=== PATIENT | female | born 1940 | race Caucasian/White ===

== ENCOUNTER 2018-06-05 20:08 | Inpatient (IN) | payer MEDICAID, MEDICARE, OTHER ==
[2018-06-05 20:13] VITALS: BMI 25.8
[2018-06-05] MEDS ORDERED: Albuterol-Ipratrop 3 mg / 0.5 (3 ml) UD INH STA (20:17)
[2018-06-05 20:57] LABS: BASO # 0.1 K/uL (0.0-0.2); BASO % 0.5 % (0.0-2.0); EOS # 0.1 K/uL (0.0-0.7); EOS % 0.7 % (0.0-4.0); HEMOGLOBIN 13.8 g/dL (11.0-16.0); LYMPH # 1.5 K/uL (1.0-4.3); LYMPH % 9.8 % (20.0-40.0); MEAN CELL VOLUME 89.6 fL (81.0-99.0); MEAN CORPUSCULAR HEMOGLOBIN 29.1 pg (27.0-31.0); MEAN CORPUSCULAR HGB CONC 32.5 g/dL (33.0-37.0); MONO % 6.7 % (0.0-10.0); NEUT # 12.4 K/uL (1.8-7.0); NEUT % 82.3 % (50.0-75.0); PLATELET COUNT 330 K/uL (130-400); RBC 4.74 Mil/uL (3.80-5.20); RED CELL DISTRIBUTION WIDTH 14.1 % (11.5-14.5)
[2018-06-05 21:00] LABS: CALCIUM 8.5 mg/dl (8.6-10.4)
--- NOTE | 2018-06-05 21:06 | C.PDOC ---
History Of Present Illness 78 year old female with PMHx of COPD and CHF is brought to the ED by EMS for evaluation of severe SOB. Patient reports her SOB has been going on for the past 2 weeks. Patient denies fever, chills, CP, palpitations, rash, recent travel, sick contacts. Time Seen by Provider: 06/05/18 20:12 Chief Complaint (Nursing): Shortness Of Breath History Per: Patient, EMS History/Exam Limitations: no limitations Onset/Duration Of Symptoms: Days Current Symptoms Are (Timing): Worse Initiating Event: Upper Respiratory Illness Quality: Tightness Current Respiratory Medications: See Home Med List Recent travel outside of the [place]: No Additional History Per: Patient Past Medical History Reviewed: Historical Data, Nursing Documentation, Vital Signs Vital Signs: Last Vital Signs Temp 98.1 F 06/05/18 20:12 Pulse 126 H 06/05/18 20:12 Resp 30 H 06/05/18 20:32 BP 172/111 H 06/05/18 20:12 Pulse Ox 100 06/05/18 20:32 - Medical History PMH: CAD, Diabetes, HTN, Osteoporosis, Pneumonia Denies: Chronic Kidney Disease Surgical History: CABG (Triple Bypass; CABG 08/2014 [facility] [place], [place]), Coronary Stent - [facility] Procedures LEFT HEART CARDIAC CATH (08/07/14) LT HEART ANGIOCARDIOGRAM (08/07/14) Family History: States: Unknown Family Hx - Social History Hx Tobacco Use: Yes Hx Alcohol Use: No Hx Substance Use: No - Immunization History Hx Tetanus Toxoid Vaccination: No Hx Influenza Vaccination: Yes Hx Pneumococcal Vaccination: Yes Review Of Systems Constitutional: Negative for: Fever, Chills Cardiovascular: Negative for: Chest Pain, Palpitations Respiratory: Positive for: Shortness of Breath. Negative for: Cough Gastrointestinal: Negative for: Nausea, Vomiting, Abdominal Pain Skin: Negative for: Rash Neurological: Negative for: Weakness, Numbness, Headache, Dizziness Physical Exam - Physical Exam Appears: Non-toxic, In Acute Distress (severe distress) Skin: Normal Color, Warm, Dry Head: Atraumatic, Normacephalic Eye(s): bilateral: Normal Inspection Neck: Normal ROM, Supple Chest: Symmetrical Cardiovascular: Rhythm Regular, JVD ((+)) Respiratory: Rales, No Rhonchi, Wheezing Gastrointestinal/Abdominal: Soft, No Tenderness, No Guarding, No Hernia Extremity: Normal ROM, No Tenderness, Pedal Edema (2+ pitting edema bilaterally), Capillary Refill (< 2 seconds) Pulses: Left Dorsalis Pedis: Normal, Right Dorsalis Pedis: Normal Neurological/Psych: Oriented x3, Normal Speech, Normal Cognition Gait: Unable To Assess ED Course And Treatment - Laboratory Results Result Diagrams: 06/05/18 20:41 06/05/18 20:41 Lab Results: Total Bilirubin 0.5 mg/dL (0.2-1.3) 06/05/18 20:41 Total Protein 7.9 g/dL (6.3-8.3) 06/05/18 20:41 Albumin 4.0 g/dL (3.5-5.0) 06/05/18 20:41 Globulin 3.9 gm/dL (2.2-3.9) 06/05/18 20:41 Albumin/Globulin Ratio 1.0 (1.0-2.1) 06/05/18 20:41 Lab Interpretation: Abnormal (ua 52 WBC's, flu swab neg.) ECG: Interpreted By Me ECG Rhythm: Sinus Tachycardia ECG Interpretation: Abnormal Rate From EC O2 Sat by Pulse Oximetry: 100 (BIPAP) Pulse Ox Interpretation: Normal - Radiology CXR Interpretation: Yes: Heart Size, Other (++ CHF) Progress Note: lasix, bipap, rocephin, azithro Reevaluation Time: 22:13 Reassessment Condition: Improved Medical Decision Making Medical Decision Making: Plan: * EKG * Labs * CXR * Duoneb * Lasix 40 mg IVP * Zithromax IV * Rocephin IV * Blood culture * Influenza A B * UA flu neg ? underlying PNA, Leuk 15K, rocephin azithro empirically minor UTI rocephin will cover Disposition Doctor Will See Patient In The: Hospital Counseled Patient/Family Regarding: Studies Performed, Diagnosis - Disposition Disposition: HOSPITALIZED Disposition Time: 22:15 Condition: GOOD - Clinical Impression Clinical Impression: Chr obstructive pulmonary disease w/ acute lower respiratory infxn, Chronic congestive heart failure - Scribe Statement The provider has reviewed the documentation as recorded by the Scribe Huber Aleman All medical record entries made by the Scribe were at my direction and personally dictated by me. I have reviewed the chart and agree that the record accurately reflects my personal performance of the history, physical exam, medical decision making, and the department course for this patient. I have also personally directed, reviewed, and agree with the discharge instructions and disposition.
[2018-06-05 21:15] LABS: TROPONIN I 0.025 ng/mL (0.00-0.120)
[2018-06-05 21:20] LABS: BANDS 3 % (0-2); EOSINOPHIL 1 % (0-4); LYMPHOCYTE 11 % (20-40); MONOCYTE 9 % (0-10); NEUTROPHIL 76 % (50-75); PLATELET ESTIMATE NORMAL (NORMAL); TOTAL CELLS COUNTED 100
[2018-06-05] MEDS ORDERED: cefTRIAXone IV 1 gm in Dextros 50 ML IV ONE (21:36)
[2018-06-05] MEDS ORDERED: Azithromycin 500 MG in Sodium Chloride 0.9% 250 ML IV STA (21:37)
[2018-06-05 21:54] LABS: SQUAMOUS EPITHIAL 10 /hpf (0-5); URINE BACTERIA MANY (<OCC); URINE BILIRUBIN NEGATIVE (NEGATIVE); URINE BLOOD 1+ (NEGATIVE); URINE CLARITY Hazy (Clear); URINE GLUCOSE (UA) 1+ mg/dL (Normal); URINE PROTEIN 3+ mg/dL (NEGATIVE); URINE UROBILINOGEN NORMAL mg/dL (0.2-1.0); WBC CLUMPS FEW /hpf
[2018-06-05 21:55] LABS: URINE COLOR YELLOW (YELLOW); URINE LEUKOCYTE ESTERASE 1+ Leu/uL (Negative)
[2018-06-05] MEDS ORDERED: Azithromycin 500mg/250ML NS 500 MG/250 ML BAG IVPB ONE (22:31)
--- NOTE | 2018-06-05 23:28 | CP.PCM.HP ---
<Peter Paris - Last Filed: 06/06/18 02:31> History of Present Illness - History of Present Illness History of Present Illness: PGY1 history and physical for Medicine Hospitalist This is a 78 year old female with PMH of CHF, CAD (CABG 2014), HTN, IDDM2, osteoporosis, pneumonia who presents with worsening shortness of breath over the past 2 days. She states that the difficulty breathing was the worst today, prompting her to come to the ED. She reports that she has not taken her medications for the past 3 months except for the insulin because of financial difficulties. Pt denies fever, chills, chest pain, palpitations, cough, headache, dizziness, numbness or tingling, abdominal pain, n/v/d, recent travel, recent car rides longer than 4 hours, dysuria, increased urinary frequency. She endorses a fall 5 days ago, with lingering left chest wall discomfort and left shoulder pain. PMD: Michael Cardiology: [facility] (last seen 1 year ago) PMH:PMH of CAD (CABG 2014), CHF, HTN, IDDM2, osteoporosis, pneumonia PSH: CABG 08/2014 Meds: Albutrol pump, Insulin which she takes at no consistent dose, otherwise noncompliant with medications Allx: PCN (rash and difficulty breathing) FHx: denies SHx: Lives alone in an apartment complex for the elderly. Occasional etoh use. quit smoking 2 years ago, 20+ pack year history. Uses a walker to ambulate. Present on Admission - Present on Admission Any Indicators Present on Admission: Yes History of Uncontrolled Diabetes: Yes Review of Systems - Review of Systems All systems: reviewed and no additional remarkable complaints except (see HPI) Past Patient History - Infectious Disease Hx of Infectious Diseases: None - Past Medical History & Family History Past Medical History?: Yes - Past Social History Smoking Status: Never Smoked - CARDIAC Hx Hypertension: Yes - PULMONARY Hx Pneumonia: Yes - NEUROLOGICAL Hx Neurological Disorder: No - HEENT Hx HEENT Problems: Yes Hx Cataracts: Yes (cataract sx 2009) Other/Comment: had cataract surgery-2009 - RENAL Hx Chronic Kidney Disease: No - ENDOCRINE/METABOLIC Hx Endocrine Disorders: Yes Hx Diabetes Mellitus Type 2: Yes - HEMATOLOGICAL/ONCOLOGICAL Hx Blood Disorders: No - INTEGUMENTARY Hx Dermatological Problems: No - MUSCULOSKELETAL/RHEUMATOLOGICAL Hx Osteoporosis: Yes - GASTROINTESTINAL Hx Gastrointestinal Disorders: No - GENITOURINARY/GYNECOLOGICAL Hx Genitourinary Disorders: No - PSYCHIATRIC Hx Substance Use: No - SURGICAL HISTORY Hx Coronary Artery Bypass Graft: Yes (Triple Bypass; CABG 08/2014 [facility] [place]) Hx Coronary Stent: Yes - ANESTHESIA Hx Anesthesia: Yes Hx Anesthesia Reactions: No Hx Malignant Hyperthermia: No Meds Allergies/Adverse Reactions: Allergies Allergy/AdvReac Type Severity Reaction Status Date / Time Penicillins Allergy Verified 06/05/18 20:15 Physical Exam - Constitutional Appears: Non-toxic, No Acute Distress - Head Exam Head Exam: ATRAUMATIC, NORMAL INSPECTION - Eye Exam Eye Exam: EOMI, Normal appearance - ENT Exam ENT Exam: Mucous Membranes Moist - Neck Exam Neck exam: Positive for: Normal Inspection - Respiratory Exam Respiratory Exam: Accessory Muscle Use (tachypnea at approximately 30/min while on BPAP 12/6 40%), Decreased Breath Sounds, Wheezes (at the bases bilaterally). absent: Rales, Rhonchi, Stridor - Cardiovascular Exam Cardiovascular Exam: +S1, +S2 - GI/Abdominal Exam GI & Abdominal Exam: Normal Bowel Sounds, Soft. absent: Firm, Guarding, Rebound, Rigid, Tenderness - Extremities Exam Extremities exam: Positive for: normal capillary refill, normal inspection, pedal edema (1+ pitting edema bilateral lower extremities), tenderness (mild left shoulder tenderness, FROM, good strength), pedal pulses present. Negative for: calf tenderness, full ROM Additional comments: (+) mild tenderness to palpation along the left midline ribs - Back Exam Back exam: NORMAL INSPECTION. absent: CVA tenderness (L), CVA tenderness (R) - Neurological Exam Neurological exam: Alert, Oriented x3 - Psychiatric Exam Psychiatric exam: Normal Affect, Normal Mood - Skin Skin Exam: Dry, Normal Color, Warm Results - Vital Signs Recent Vital Signs: Last Vital Signs Temp 98.1 F 06/05/18 20:12 Pulse 108 H 06/05/18 21:53 Resp 26 H 06/05/18 22:51 BP 135/87 06/05/18 21:53 Pulse Ox 100 06/05/18 22:15 - Labs Result Diagrams: 06/05/18 20:41 06/05/18 20:41 Labs: Laboratory Results - last 24 hr 06/05/18 06/05/18 06/05/18 20:41 20:41 21:42 WBC 15.0 H D RBC 4.74 Hgb 13.8 Hct 42.4 MCV 89.6 MCH 29.1 MCHC 32.5 L RDW 14.1 Plt Count 330 MPV 10.0 Neut % (Auto) 82.3 H Lymph % (Auto) 9.8 L [place] % (Auto) 6.7 Eos % (Auto) 0.7 Baso % (Auto) 0.5 Neut # (Auto) 12.4 H Lymph # (Auto) 1.5 Hamblen # (Auto) 1.0 H Eos # (Auto) 0.1 Baso # (Auto) 0.1 Neutrophils % (Manual) 76 H Band Neutrophils % 3 H Lymphocytes % (Manual) 11 L Monocytes % (Manual) 9 Eosinophils % (Manual) 1 Platelet Estimate Normal Sodium 139 Potassium 4.4 Chloride 109 H Carbon Dioxide 21 L Anion Gap 14 BUN 24 H Creatinine 1.7 H Est GFR ( Amer) 35 Est GFR (Non-Af Amer) 29 Random Glucose 240 H D Calcium 8.5 L Total Bilirubin 0.5 AST 155 H ALT 74 H D Alkaline Phosphatase 151 H Troponin I 0.0250 NT-Pro-B Natriuret Pep 7020 H Total Protein 7.9 Albumin 4.0 Globulin 3.9 Albumin/Globulin Ratio 1.0 Urine Color Urine Clarity Urine pH Ur Specific [place] Urine Protein Urine Glucose (UA) Urine Ketones Urine Blood Urine Nitrate Urine Bilirubin Urine Urobilinogen Ur Leukocyte Esterase Urine WBC (Auto) Urine RBC (Auto) Urine WBC Clumps (Auto) Ur Squamous Epith Cells Urine Bacteria Influenza Typ A,B (EIA) Negative for flu a/b 06/05/18 21:42 WBC RBC Hgb Hct MCV MCH MCHC RDW Plt Count MPV Neut % (Auto) Lymph % (Auto) [place] % (Auto) Eos % (Auto) Baso % (Auto) Neut # (Auto) Lymph # (Auto) Hamb[place] # (Auto) Eos # (Auto) Baso # (Auto) Neutrophils % (Manual) Band Neutrophils % Lymphocytes % (Manual) Monocytes % (Manual) Eosinophils % (Manual) Platelet Estimate Sodium Potassium Chloride Carbon Dioxide Anion Gap BUN Creatinine Est GFR ( Amer) Est GFR (Non-Af Amer) Random Glucose Calcium Total Bilirubin AST ALT Alkaline Phosphatase Troponin I NT-Pro-B Natriuret Pep Total Protein Albumin Globulin Albumin/Globulin Ratio Urine Color Yellow Urine Clarity Hazy Urine pH 5.0 Ur Specific [place] 1.010 Urine Protein 3+ H Urine Glucose (UA) 1+ Urine Ketones Negative Urine Blood 1+ H Urine Nitrate Negative Urine Bilirubin Negative Urine Urobilinogen Normal Ur Leukocyte Esterase 1+ H Urine WBC (Auto) 52 H Urine RBC (Auto) 24 H Urine WBC Clumps (Auto) Few H Ur Squamous Epith Cells 10 H Urine Bacteria Many H Influenza Typ A,B (EIA) Assessment & Plan - Assessment and Plan (Free Text) Assessment: This is a 78 year old female with PMH of CAD (CABG 2014), HTN, IDDM2, osteoporosis, pneumonia who presents with shortness of breath over the past 2 weeks, worse today. Found to be in CHF exacerbation, with possible pneumonia and possible UTI. Plan: CHF exacerbation CXR shows s/p CABG, pulmonary edema, cardiomegaly, possible infiltrate; f/u official reading Pt treated with Lasix 40 mg IVP in the ED, with symptomatic relief. Also placed on BPAP 04/07 40%. BNP is 7020 on admission Will continue Lasix IVP in the morning, but currently pt without JVD, rales and pedal edema is much improved Echocardiogram 2015: shows diastolic and systolic dysfunction Troponin is 0.0250 on admission, EKG shows sinus tachycardia; will trend q6h x2 Will treat with ASA 325 mg PO stat Cardiology, Dr. Huerta, consulted. Recommendations appreciated. F/u echocardiogram Possible infiltrate, left shift, suspected CAP Pt received Zithromax 500 mg IVPB and Rocephin 1g IVPB in the ED Leukocytosis at 15.0 with bandemia of 3 CXR shows pulmonary edema, cannot rule out infiltrate; f/u official reading in am Tylenol prn fever Pt is allergic to PCN, will start Moxifloxacin 400 mg IVPB daily Duonebs q4h SCOUT Creatinine is 1.7 on admission Possible CKD at baseline as 2014 Creatinine is 1.3 Will continue to trend, renal function expected to decline from lasix IV, but will continue to diurese in setting of acute CHF IDDM2 Accucheck ACHS ISS medium ACHS Will reconsider ACEi in the am due to SCOUT Shoulder and rib pain s/p fall on 06/01/18 Pain may have possibly contributed to suspected pneumonia F/u left shoulder x-ray and left rib series Hx of HTN Pt is normotensive at this time May consider hydralazine PT/OT eval GI ppx: protonix 40 mg IVP daily VTE ppx: Heparin 5000 sc q8, SCDs CCD/HHD Case was reviewed and discussed with attending physician, Dr. Joyce Paris PGY1 <Jacob Cook - Last Filed: 06/06/18 06:23> Results - Vital Signs Recent Vital Signs: Last Vital Signs Temp 98.1 F 06/05/18 20:12 Pulse 110 H 06/06/18 04:34 Resp 26 H 06/06/18 04:34 BP 134/77 06/06/18 04:34 Pulse Ox 100 06/06/18 04:34 - Labs Result Diagrams: 06/06/18 04:20 06/06/18 04:20 Labs: Laboratory Results - last 24 hr 06/05/18 06/05/18 06/05/18 20:41 20:41 21:42 WBC 15.0 H D RBC 4.74 Hgb 13.8 Hct 42.4 MCV 89.6 MCH 29.1 MCHC 32.5 L RDW 14.1 Plt Count 330 MPV 10.0 Neut % (Auto) 82.3 H Lymph % (Auto) 9.8 L Hamb[place] % (Auto) 6.7 Eos % (Auto) 0.7 Baso % (Auto) 0.5 Neut # (Auto) 12.4 H Lymph # (Auto) 1.5 Hamb[place] # (Auto) 1.0 H Eos # (Auto) 0.1 Baso # (Auto) 0.1 Neutrophils % (Manual) 76 H Band Neutrophils % 3 H Lymphocytes % (Manual) 11 L Monocytes % (Manual) 9 Eosinophils % (Manual) 1 Platelet Estimate Normal Sodium 139 Potassium 4.4 Chloride 109 H Carbon Dioxide 21 L Anion Gap 14 BUN 24 H Creatinine 1.7 H Est GFR ( Amer) 35 Est GFR (Non-Af Amer) 29 Random Glucose 240 H D Calcium 8.5 L Phosphorus Magnesium Total Bilirubin 0.5 AST 155 H ALT 74 H D Alkaline Phosphatase 151 H Total Creatine Kinase CK-MB (Mass) Troponin I 0.0250 NT-Pro-B Natriuret Pep 7020 H Total Protein 7.9 Albumin 4.0 Globulin 3.9 Albumin/Globulin Ratio 1.0 Triglycerides Cholesterol LDL Cholesterol Direct HDL Cholesterol Urine Color Urine Clarity Urine pH Ur Specific [place] Urine Protein Urine Glucose (UA) Urine Ketones Urine Blood Urine Nitrate Urine Bilirubin Urine Urobilinogen Ur Leukocyte Esterase Urine WBC (Auto) Urine RBC (Auto) Urine WBC Clumps (Auto) Ur Squamous Epith Cells Urine Bacteria Influenza Typ A,B (EIA) Negative for flu a/b 06/05/18 06/06/18 06/06/18 21:42 04:20 04:20 WBC 8.3 RBC 4.20 Hgb 12.1 Hct 37.4 MCV 89.0 MCH 28.9 MCHC 32.5 L RDW 14.5 Plt Count 262 MPV 10.0 Neut % (Auto) 77.7 H Lymph % (Auto) 13.6 L [place] % (Auto) 7.8 Eos % (Auto) 0.4 Baso % (Auto) 0.5 Neut # (Auto) 6.5 Lymph # (Auto) 1.1 [place] # (Auto) 0.6 Eos # (Auto) 0.0 Baso # (Auto) 0.0 Neutrophils % (Manual) Band Neutrophils % Lymphocytes % (Manual) Monocytes % (Manual) Eosinophils % (Manual) Platelet Estimate Sodium 140 Potassium 4.3 Chloride 108 H Carbon Dioxide 23 Anion Gap 13 BUN 26 H Creatinine 1.6 H Est GFR ( Amer) 38 Est GFR (Non-Af Amer) 31 Random Glucose 151 H D Calcium 8.2 L Phosphorus 4.5 Magnesium 1.8 Total Bilirubin 0.6 AST 79 H D ALT 52 D Alkaline Phosphatase 111 Total Creatine Kinase 129 CK-MB (Mass) 2.69 Troponin I 0.0620 NT-Pro-B Natriuret Pep Total Protein 7.1 Albumin 3.3 L Globulin 3.8 Albumin/Globulin Ratio 0.9 L Triglycerides 74 D Cholesterol 171 LDL Cholesterol Direct 114 HDL Cholesterol 39 Urine Color Yellow Urine Clarity Hazy Urine pH 5.0 Ur Specific [place] 1.010 Urine Protein 3+ H Urine Glucose (UA) 1+ Urine Ketones Negative Urine Blood 1+ H Urine Nitrate Negative Urine Bilirubin Negative Urine Urobilinogen Normal Ur Leukocyte Esterase 1+ H Urine WBC (Auto) 52 H Urine RBC (Auto) 24 H Urine WBC Clumps (Auto) Few H Ur Squamous Epith Cells 10 H Urine Bacteria Many H Influenza Typ A,B (EIA) Assessment & Plan - Date & Time Date: 06/06/18 (I have seen and examined the patient. I agree with the findings and plan of care as documented by Dr. Paris. Patient with acute CHF. ROMIx3 with EKG. Lasix. Consult to Cardio. 2D Echo. Monitor renal function closely. Already with acute kidney injury. Will likely worsen due to Lasix. History of diabetes. Accuchecks and NISS. Rib pain secondary to recent fall. Rib series. Monitor for acute changes.) Time: 06:20 Attending/Attestation - Attestation I have personally seen and examined this patient.: Yes I have fully participated in the care of the patient.: Yes I have reviewed all pertinent clinical information: Yes
[2018-06-06] MEDS ORDERED: Glucagon Recombinant 1 mg Inj IM PRN (00:18)
[2018-06-06] MEDS ORDERED: Dextrose 50% SYRINGE Inj (50 ml) IV PRN (00:18)
[2018-06-06] MEDS: Albuterol-Ipratrop 3 mg / 0.5 (3 ml) UD INH SCH ×5 (00:35→16:43)
[2018-06-06] MEDS ORDERED: Albuterol-Ipratrop 3 mg / 0.5 (3 ml) UD ONE ×3 (00:37→08:09)
[2018-06-06 04:22] LABS: BASO % 0.5 % (0.0-2.0); EOS % 0.4 % (0.0-4.0); HEMOGLOBIN 12.1 g/dL (11.0-16.0); LYMPH # 1.1 K/uL (1.0-4.3); LYMPH % 13.6 % (20.0-40.0); MEAN CORPUSCULAR HEMOGLOBIN 28.9 pg (27.0-31.0); MEAN CORPUSCULAR HGB CONC 32.5 g/dL (33.0-37.0); MONO # 0.6 K/uL (0.0-0.8); MONO % 7.8 % (0.0-10.0); NEUT # 6.5 K/uL (1.8-7.0); NEUT % 77.7 % (50.0-75.0); RBC 4.2 Mil/uL (3.80-5.20); RED CELL DISTRIBUTION WIDTH 14.5 % (11.5-14.5); WHITE BLOOD COUNT 8.3 K/uL (4.8-10.8)
[2018-06-06 04:46] LABS: CK-MB 2.69 ng/mL (0.0-3.38)
[2018-06-06 05:04] LABS: ALB/GLOB RATIO 0.9 (1.0-2.1); ALBUMIN 3.3 g/dL (3.5-5.0); CALCIUM 8.2 mg/dl (8.6-10.4); TROPONIN I 0.062 ng/mL (0.00-0.120)
[2018-06-06] MEDS: Aztreonam 1 GM in Sodium Chloride 0.9% 100 ML IVPB SCH ×3 (06:27→21:53)
--- NOTE | 2018-06-06 07:44 | CP.PCM.PN ---
<Kathy Rivera - Last Filed: 06/06/18 14:38> Subjective - Date & Time of Evaluation Date of Evaluation: 06/06/18 Time of Evaluation: 09:15 - Subjective Subjective: Patient examined at bedside. Pt in respiratory distress, tachypneic and tachycardic. Per nursing, patient has respiratory distress with any physical exertion, even moving to sit at foot of bed. Pt only able to speak a few words at a time 2/2 tachypnea. She reports she is feeling better than on presentation to the ED, decreased shortness of breath. She confirms she has not been taking medications 2/2 financial constraints. Pt experienced progressive decline in respiratory function requiring ED treatment. Currently denies chest pain, cough, nausea. Objective - Vital Signs/Intake and Output Vital Signs (last 24 hours): Temp Pulse Resp BP Pulse Ox 98.1 F 98 H 16 125/74 100 06/05/18 20:12 06/06/18 06:53 06/06/18 06:53 06/06/18 06:53 06/06/18 06:53 Intake and Output: 06/06/18 06/06/18 06:59 18:59 Output Total 750 Balance -750 - Medications Medications: Current Medications Acetaminophen (Tylenol 325mg Tab) 650 mg PO Q6 PRN PRN Reason: Fever >100.4 F Acetaminophen (Tylenol 325mg Tab) 650 mg PO Q6 PRN PRN Reason: Pain, moderate (4-7) Last Admin: 06/06/18 00:55 Dose: 650 mg Albuterol/Ipratropium (Duoneb 3 Mg/0.5 Mg (3 Ml) Ud) 3 ml INH RQ4 PATRICIA Last Admin: 06/06/18 04:40 Dose: 3 ml Dextrose (Glutose 15) 0 gm PO ONCE PRN; Protocol PRN Reason: Hypoglycemia Protocol Dextrose (Dextrose 50% Inj) 0 ml IV STAT PRN; Protocol PRN Reason: Hypoglycemia Protocol Glucagon (Glucagen Diagnostic Kit) 0 mg IM STAT PRN; Protocol PRN Reason: Hypoglycemia Protocol Heparin Sodium (Porcine) (Heparin) 5,000 units SC Q8 PATRICIA Last Admin: 06/06/18 06:27 Dose: 5,000 units Dextrose (Dextrose 5% In Water 1000 Ml) 1,000 mls @ 0 mls/hr IV .Q0M PRN; Protocol PRN Reason: Hypoglycemia Protocol Aztreonam 1 gm/ Sodium (Chloride) 100 mls @ 100 mls/hr IVPB Q8 PATRICIA; Protocol Last Admin: 06/06/18 06:27 Dose: 100 mls/hr Doxycycline Hyclate 100 mg/ (Sodium Chloride) 100 mls @ 100 mls/hr IVPB Q12 PATRICIA; Protocol Insulin Human Regular (Novolin R) 0 unit SC ACHS PATRICIA; Protocol - Labs Labs: 06/06/18 04:20 06/06/18 04:20 - Constitutional Appears: Non-toxic, In Acute Distress - Head Exam Head Exam: ATRAUMATIC, NORMAL INSPECTION, NORMOCEPHALIC - Eye Exam Eye Exam: EOMI, Normal appearance - ENT Exam ENT Exam: Mucous Membranes Moist, Normal Exam - Respiratory Exam Respiratory Exam: Accessory Muscle Use, Rhonchi, Wheezes, Respiratory Distress. absent: NORMAL BREATHING PATTERN (tachypneic) - Cardiovascular Exam Cardiovascular Exam: Tachycardia, REGULAR RHYTHM - GI/Abdominal Exam GI & Abdominal Exam: Soft, Normal Bowel Sounds. absent: Tenderness - Extremities Exam Extremities Exam: Normal Inspection. absent: Calf Tenderness, Pedal Edema - Neurological Exam Neurological Exam: Alert, Awake, Oriented x3 - Psychiatric Exam Psychiatric exam: Normal Affect, Normal Mood - Skin Skin Exam: Dry, Intact, Normal Color, Warm. absent: Cyanosis Assessment and Plan - Assessment and Plan (Free Text) Assessment: 78 year old female with PMHx of CAD (CABG 2014), HTN, IDDM2, osteoporosis, presenting for evaluation of SOB, and admitted for treatment of an acute CHF exacerbation Plan: CHF exacerbation, acute on chronic Echo 2015: Grade IV restrictive diastolic dysfunction and systolic dysfunction F/U repeat echo: Troponins negative x3, BNP is 7020 on admission Lasix 40mg IVP BID Lopressor 25mg PO BID Hold CARMEL/ARb pending improved renal function Consider adding ASA 81mg, statin Cardiology, Dr. Huerta, consulted. Recommendations appreciated. Suspected CAP CXR: Diffuse increased interstitial airspace opacities suggestive for edema/infiltrate, superimposed confluent consolidative changes in left mid to lower lung, and right lung apex and base F/U chest CT for further evaluation: No leukocytosis/fevers Tylenol prn fever Aztreonam and Doxy Duonebs q4h Suspected UTI UA contaminated F/U urine culture SCOUT Creatinine is 1.7 on admission, downtrending to 1.6 today Consider adding CARMEL pending Cr DM2 Accucheck ACHS ISS medium ACHS Hypoglycemia protocol Hx of HTN Continue to monitor, add CARMEL if Cr stable, otherwise maybe Hydralazine PPX PT/OT eval GI ppx: protonix 40 mg IVP daily VTE ppx: Heparin 5000 sc q8, SCDs CCD/HHD Discussed w/ Dr. Alonzo -Kathy Rivera, PGY-1 <Roscoe Alonzo H - Last Filed: 06/06/18 15:58> Objective - Vital Signs/Intake and Output Vital Signs (last 24 hours): Temp Pulse Resp BP Pulse Ox 97.5 F L 102 H 18 151/94 H 97 06/06/18 15:00 06/06/18 15:00 06/06/18 15:00 06/06/18 15:00 06/06/18 15:00 Intake and Output: 06/06/18 06/06/18 06:59 18:59 Output Total 750 Balance -750 - Medications Medications: Current Medications Acetaminophen (Tylenol 325mg Tab) 650 mg PO Q6 PRN PRN Reason: Fever >100.4 F Acetaminophen (Tylenol 325mg Tab) 650 mg PO Q6 PRN PRN Reason: Pain, moderate (4-7) Last Admin: 06/06/18 00:55 Dose: 650 mg Albuterol/Ipratropium (Duoneb 3 Mg/0.5 Mg (3 Ml) Ud) 3 ml INH RQ4 [facility] Last Admin: 06/06/18 11:25 Dose: 3 ml Dextrose (Glutose 15) 0 gm PO ONCE PRN; Protocol PRN Reason: Hypoglycemia Protocol Dextrose (Dextrose 50% Inj) 0 ml IV STAT PRN; Protocol PRN Reason: Hypoglycemia Protocol Furosemide (Lasix) 40 mg IVP BID [facility] Last Admin: 06/06/18 10:52 Dose: 40 mg Glucagon (Glucagen Diagnostic Kit) 0 mg IM STAT PRN; Protocol PRN Reason: Hypoglycemia Protocol Heparin Sodium (Porcine) (Heparin) 5,000 units SC Q8 [facility] Last Admin: 06/06/18 14:33 Dose: 5,000 units Dextrose (Dextrose 5% In Water 1000 Ml) 1,000 mls @ 0 mls/hr IV .Q0M PRN; Protocol PRN Reason: Hypoglycemia Protocol Aztreonam 1 gm/ Sodium (Chloride) 100 mls @ 100 mls/hr IVPB Q8 PATRICIA; Protocol Last Admin: 06/06/18 13:16 Dose: 100 mls/hr Doxycycline Hyclate 100 mg/ (Sodium Chloride) 100 mls @ 100 mls/hr IVPB Q12H PATRICIA; Protocol Last Admin: 06/06/18 13:12 Dose: 100 mls/hr Insulin Human Regular (Novolin R) 0 unit SC ACHS PATRICIA; Protocol Last Admin: 06/06/18 11:38 Dose: Not Given Metoprolol Tartrate (Lopressor) 25 mg PO BID PATRICIA Last Admin: 06/06/18 10:53 Dose: 25 mg Pneumococcal Polyvalent Vaccine (Pneumovax 23 Vaccine) 0.5 ml IM .ONCE ONE Stop: 06/08/18 14:01 - Labs Labs: 06/06/18 04:20 06/06/18 04:20 Attending/Attestation - Attestation I have personally seen and examined this patient.: Yes I have fully participated in the care of the patient.: Yes I have reviewed all pertinent clinical information, including history, physical exam and plan: Yes Notes (Text): 06/06/18 15:52 Medical attending: I will have to reutrn and see the patient later today. I tried to see in the morning but she was at test and this afternoon when I came back with resident she was at CT Nevertheless I reviewed the above note by the resident and agree with the above. The CXRAY shows she has at least a moderate R > L pleural effusion and considering her shortness of breath will need lasix and 2 D Echo. An order for CT without contrast of the chest was also ordered this morning as she may need a thoracentesis. Cardiology added BB, and she will need a PT evaluation as well. From what I understand the patient has not taken medication for quite sometime due to financial difficulties and so at some point when she goes we should try to see what we can do to send her with. thank you Roscoe Alonzo
[2018-06-06] MEDS ORDERED: (Novolin R) Insulin Human Regular 100 units/ml vial ONE (08:04)
[2018-06-06] MEDS: (Novolin R) Insulin Human Regular 100 units/ml vial SC SCH ×4 (08:08→21:53)
--- NOTE | 2018-06-06 09:23 | RAD ---
Chest x-ray single frontal view HISTORY: Shortness of breath. COMPARISON: 10/05/2014 Findings: Hyperinflation suggestive for COPD and or emphysematous changes. Diffuse reticular nodular opacities seen throughout both lungs. Prominent increased opacification in both lungs which may represent diffuse edema versus infiltrate. Confluent consolidative opacities seen within the left mid to lower lung zone as well as at the right lung apex and right lung base. Small bilateral pleural effusions. Cardiomegaly. Bilateral calcified hilar and mediastinal lymph nodes. Status post median sternotomy and CABG. Cardiomegaly. Degenerative changes in the spine and shoulders. Impression: Hyperinflation suggestive for COPD and or emphysematous changes. Diffuse reticular nodular opacities seen throughout both lungs. Prominent increased opacification in both lungs which may represent diffuse edema versus infiltrate. Confluent consolidative opacities seen within the left mid to lower lung zone as well as at the right lung apex and right lung base. Small bilateral pleural effusions. Cardiomegaly. Bilateral calcified hilar and mediastinal lymph nodes. Status post median sternotomy and CABG. Cardiomegaly.
--- NOTE | 2018-06-06 09:37 | RAD ---
Chest x-ray single frontal view HISTORY: Follow-up. COMPARISON: 06/05/2018 Findings: Diffuse increased interstitial airspace opacities suggestive for edema and or infiltrate. Superimposed confluent consolidative changes in the left mid to lower lung zone as well as at the right lung apex and base. Increased now moderate right and small left pleural effusion. Status post median sternotomy. Cardiomegaly. Calcified bilateral hilar lymph nodes. Biapical pleural thickening with upper changes. Degenerative changes in the spine and shoulders. Impression: Diffuse increased interstitial airspace opacities suggestive for edema and or infiltrate. Superimposed confluent consolidative changes in the left mid to lower lung zone as well as at the right lung apex and base. Increased now moderate right and small left pleural effusion. Status post median sternotomy. Cardiomegaly. Calcified bilateral hilar lymph nodes. Biapical pleural thickening with upper lobe granulomatous changes.
[2018-06-06] MEDS ORDERED: Moxifloxacin IV 400mg/250ml NS 400 MG/250 ML BAG IVPB SCH (10:00)
[2018-06-06] MEDS ORDERED: Azithromycin 500 MG in Sodium Chloride 0.9% 250 ML IVPB SCH (10:00)
[2018-06-06 11:56] LABS: CK-MB 3.62 ng/mL (0.0-3.38); TROPONIN I 0.061 ng/mL (0.00-0.120)
--- NOTE | 2018-06-06 15:03 | RAD ---
Date of service: 06/06/2018 PROCEDURE: Radiographs of the Left Shoulder HISTORY: s/p fall COMPARISON: No prior. FINDINGS: BONES: No fracture. Small globular calcification adjacent to the greater tuberosity consistent with calcific tendinitis. JOINTS: Normal. Glenohumeral and acromioclavicular joints preserved. No osteoarthritis. SOFT TISSUES: Normal. OTHER FINDINGS: None. IMPRESSION: Calcific tendinitis. No acute fracture.
--- NOTE | 2018-06-06 15:03 | RAD ---
Date of service: 06/06/2018 PROCEDURE: Radiographs of the Chest and Left Ribs. HISTORY: s/p fall COMPARISON: Not available TECHNIQUE: Frontal radiograph of the chest and multiple oblique radiographs of the left ribs were obtained. FINDINGS: LEFT RIBS: No fracture or focal lesion visualized. LUNGS: Clear. PLEURA: No pneumothorax or pleural fluid. CARDIOVASCULAR: Normal cardiac size. No pulmonary vascular congestion. No aortic atherosclerotic calcification present OTHER FINDINGS: None. IMPRESSION: Unremarkable radiographs of the chest and left ribs. No left rib fracture.
--- NOTE | 2018-06-06 17:49 | CT ---
Date of service: 06/06/2018 PROCEDURE: CT Chest without contrast HISTORY: eval for pleural effusions COMPARISON: Comparison is made with the previous study dated 08/07/2014 TECHNIQUE: Contiguous axial images were obtained through the chest without intravenous contrast enhancement. Sagittal and coronal reconstructions were performed. Radiation dose: Total exam DLP = 783.84 mGy-cm. This CT exam was performed using one or more of the following dose reduction techniques: Automated exposure control, adjustment of the mA and/or kV according to patient size, and/or use of iterative reconstruction technique. FINDINGS: LUNGS: Moderate to mildly severe upper lobe predominant emphysema is again noted. There Is round consolidation at the medial aspect of the right lung upper lobe may represent lung mass versus localized pleural effusion. Diffuse ground-glass opacity and reticular opacities in both upper lobes noted. There is partially calcified nodule at the right lung upper lobe measures 1.5 centimeter. MEDIASTINUM: The thoracic aorta is ectatic and tortuous. The heart is enlarged. Main pulmonary artery is mildly enlarged. Mediastinal lymphadenopathy are again noted some of which are calcified. Bilateral hilar calcified lymph nodes are again noted. No aortic atherosclerotic calcification. PLEURA: There is moderate to large right pleural effusion. There is a small left pleural effusion. BONES: No fracture. No destructive lesion. UPPER ABDOMEN: Grossly unremarkable. OTHER FINDINGS: None. IMPRESSION: Markedly limited study degraded by motion artifact. The evaluation is also limited without IV contrast administration. Round consolidation versus localized pleural effusion noted at the medial aspect of the right upper chest. Reticular opacities and ground-glass opacities are noted in the upper lobes larger on the left. Moderate to large right pleural effusion. Calcified granuloma and calcified mediastinal and hilar lymphadenopathy are again noted. Findings likely due to prior granulomatosis disease or sarcoidosis. Moderate cardiomegaly.
--- NOTE | 2018-06-06 18:38 | CP.PCM.CON ---
<Bronson Xavierssyca IlsaTristan - Last Filed: 06/06/18 18:34> History of Present Illness - History of Present Illness History of Present Illness: Cardiology Consult Note for Dr. Huerta: 78 year old female with PMH of CHF, CAD (CABG 2014), HTN, IDDM2 and osteoporosis who presented to the ER with worsening shortness of breath over the past 2 days. During examination patient was very short of breath as she just moved from bed to the bathroom. Patient had to stop after every word to catch her breath (patient on 3L of Oxygen). Per nurse patient has not used her BiPAP machine for 3 days. PMD: Dr. Rodriguez Cardiology: Dr. Huerta (last seen 1 year ago) Past Medical History: CAD (CABG 2014), CHF, HTN, IDDM2, osteoporosis, pneumonia Past Surgical History: CABG 08/2014; Cardiac Cath 2014 Medications: Patient states she has not been taking many of her medications for awhile due to financial reasons Allergies: PCN (rash and difficulty breathing) Social History: Quit smoking 2 years ago, 20+ pack year history. Uses a walker to ambulate. Review of Systems - Review of Systems Systems not reviewed;Unavailable: Respiratory Distress Past Patient History - Infectious Disease Hx of Infectious Diseases: None - Past Medical History & Family History Past Medical History?: Yes - Past Social History Smoking Status: Light Smoker < 10 Cigarettes Daily - CARDIAC Hx Cardiac Disorders: Yes Hx Hypertension: Yes - PULMONARY Hx Respiratory Disorders: Yes Hx Pneumonia: Yes - NEUROLOGICAL Hx Neurological Disorder: No - HEENT Hx HEENT Problems: Yes Hx Cataracts: Yes (cataract sx 2009) Other/Comment: had cataract surgery-2009 - RENAL Hx Chronic Kidney Disease: No - ENDOCRINE/METABOLIC Hx Diabetes Mellitus Type 2: Yes - HEMATOLOGICAL/ONCOLOGICAL Hx Blood Disorders: No - INTEGUMENTARY Hx Dermatological Problems: No - MUSCULOSKELETAL/RHEUMATOLOGICAL Hx Musculoskeletal Disorders: Yes Hx Falls: No Hx Osteoporosis: Yes - GASTROINTESTINAL Hx Gastrointestinal Disorders: No - GENITOURINARY/GYNECOLOGICAL Hx Genitourinary Disorders: No - PSYCHIATRIC Hx Psychophysiologic Disorder: No Hx Substance Use: No - SURGICAL HISTORY Hx Surgeries: Yes Hx Coronary Artery Bypass Graft: Yes [place]Triple Bypass[place] [facility] [place] Hx Coronary Stent: Yes - ANESTHESIA Hx Anesthesia: Yes Hx Anesthesia Reactions: No Hx Malignant Hyperthermia: No Meds Allergies/Adverse Reactions: Allergies Allergy/AdvReac Type Severity Reaction Status Date / Time Penicillins Allergy Verified 06/05/18 20:15 - Medications Medications: Current Medications Acetaminophen (Tylenol 325mg Tab) 650 mg PO Q6 PRN PRN Reason: Fever >100.4 F Acetaminophen (Tylenol 325mg Tab) 650 mg PO Q6 PRN PRN Reason: Pain, moderate (4-7) Last Admin: 06/06/18 00:55 Dose: 650 mg Albuterol/Ipratropium (Duoneb 3 Mg/0.5 Mg (3 Ml) Ud) 3 ml INH RQ4 PATRICIA Last Admin: 06/06/18 16:43 Dose: 3 ml Dextrose (Glutose 15) 0 gm PO ONCE PRN; Protocol PRN Reason: Hypoglycemia Protocol Dextrose (Dextrose 50% Inj) 0 ml IV STAT PRN; Protocol PRN Reason: Hypoglycemia Protocol Furosemide (Lasix) 40 mg IVP BID PATRICIA Last Admin: 06/06/18 17:19 Dose: 40 mg Glucagon (Glucagen Diagnostic Kit) 0 mg IM STAT PRN; Protocol PRN Reason: Hypoglycemia Protocol Heparin Sodium (Porcine) (Heparin) 5,000 units SC Q8 PATRICIA Last Admin: 06/06/18 14:33 Dose: 5,000 units Dextrose (Dextrose 5% In Water 1000 Ml) 1,000 mls @ 0 mls/hr IV .Q0M PRN; Protocol PRN Reason: Hypoglycemia Protocol Aztreonam 1 gm/ Sodium (Chloride) 100 mls @ 100 mls/hr IVPB Q8 PATRICIA; Protocol Last Admin: 06/06/18 13:16 Dose: 100 mls/hr Doxycycline Hyclate 100 mg/ (Sodium Chloride) 100 mls @ 100 mls/hr IVPB Q12H PATRICIA; Protocol Last Admin: 06/06/18 13:12 Dose: 100 mls/hr Insulin Human Regular (Novolin R) 0 unit SC ACHS PATRICIA; Protocol Last Admin: 06/06/18 17:19 Dose: 2 units Metoprolol Tartrate (Lopressor) 25 mg PO BID PATRICIA Last Admin: 06/06/18 17:19 Dose: 25 mg Pneumococcal Polyvalent Vaccine (Pneumovax 23 Vaccine) 0.5 ml IM .ONCE ONE Stop: 06/08/18 14:01 Physical Exam - Constitutional Appears: In Acute Distress, Chronically Ill - Head Exam Head Exam: ATRAUMATIC, NORMAL INSPECTION - Eye Exam Eye Exam: EOMI, Normal appearance - ENT Exam ENT Exam: Mucous Membranes Moist - Respiratory Exam Respiratory Exam: Rhonchi, Wheezes - Cardiovascular Exam Cardiovascular Exam: Tachycardia - GI/Abdominal Exam GI & Abdominal Exam: Normal Bowel Sounds, Soft. absent: Tenderness - Extremities Exam Extremities exam: Positive for: normal inspection - Neurological Exam Neurological exam: Alert, Oriented x3 - Psychiatric Exam Psychiatric exam: Anxious - Skin Skin Exam: Normal Color Results - Vital Signs Recent Vital Signs: Last Vital Signs Temp 97.5 F L 06/06/18 15:00 Pulse 102 H 06/06/18 15:00 Resp 18 06/06/18 15:00 BP 151/94 H 06/06/18 17:19 Pulse Ox 97 06/06/18 15:00 - Labs Result Diagrams: 06/06/18 04:20 06/06/18 04:20 Labs: Laboratory Results - last 24 hr 06/05/18 06/05/18 06/05/18 20:41 20:41 21:42 WBC 15.0 H D RBC 4.74 Hgb 13.8 Hct 42.4 MCV 89.6 MCH 29.1 MCHC 32.5 L RDW 14.1 Plt Count 330 MPV 10.0 Neut % (Auto) 82.3 H Lymph % (Auto) 9.8 L [place] % (Auto) 6.7 Eos % (Auto) 0.7 Baso % (Auto) 0.5 Neut # (Auto) 12.4 H Lymph # (Auto) 1.5 [place] # (Auto) 1.0 H Eos # (Auto) 0.1 Baso # (Auto) 0.1 Neutrophils % (Manual) 76 H Band Neutrophils % 3 H Lymphocytes % (Manual) 11 L Monocytes % (Manual) 9 Eosinophils % (Manual) 1 Platelet Estimate Normal Sodium 139 Potassium 4.4 Chloride 109 H Carbon Dioxide 21 L Anion Gap 14 BUN 24 H Creatinine 1.7 H Est GFR ( Amer) 35 Est GFR (Non-Af Amer) 29 POC Glucose (mg/dL) Random Glucose 240 H D Hemoglobin A1c Calcium 8.5 L Phosphorus Magnesium Total Bilirubin 0.5 AST 155 H ALT 74 H D Alkaline Phosphatase 151 H Total Creatine Kinase CK-MB (Mass) Troponin I 0.0250 NT-Pro-B Natriuret Pep 7020 H Total Protein 7.9 Albumin 4.0 Globulin 3.9 Albumin/Globulin Ratio 1.0 Triglycerides Cholesterol LDL Cholesterol Direct HDL Cholesterol Urine Color Urine Clarity Urine pH Ur Specific [place] Urine Protein Urine Glucose (UA) Urine Ketones Urine Blood Urine Nitrate Urine Bilirubin Urine Urobilinogen Ur Leukocyte Esterase Urine WBC (Auto) Urine RBC (Auto) Urine WBC Clumps (Auto) Ur Squamous Epith Cells Urine Bacteria Influenza Typ A,B (EIA) Negative for flu a/b 06/05/18 06/06/18 06/06/18 21:42 04:20 04:20 WBC 8.3 RBC 4.20 Hgb 12.1 Hct 37.4 MCV 89.0 MCH 28.9 MCHC 32.5 L RDW 14.5 Plt Count 262 MPV 10.0 Neut % (Auto) 77.7 H Lymph % (Auto) 13.6 L [place] % (Auto) 7.8 Eos % (Auto) 0.4 Baso % (Auto) 0.5 Neut # (Auto) 6.5 Lymph # (Auto) 1.1 [place] # (Auto) 0.6 Eos # (Auto) 0.0 Baso # (Auto) 0.0 Neutrophils % (Manual) Band Neutrophils % Lymphocytes % (Manual) Monocytes % (Manual) Eosinophils % (Manual) Platelet Estimate Sodium 140 Potassium 4.3 Chloride 108 H Carbon Dioxide 23 Anion Gap 13 BUN 26 H Creatinine 1.6 H Est GFR ( Amer) 38 Est GFR (Non-Af Amer) 31 POC Glucose (mg/dL) Random Glucose 151 H D Hemoglobin A1c Calcium 8.2 L Phosphorus 4.5 Magnesium 1.8 Total Bilirubin 0.6 AST 79 H D ALT 52 D Alkaline Phosphatase 111 Total Creatine Kinase 129 CK-MB (Mass) 2.69 Troponin I 0.0620 NT-Pro-B Natriuret Pep Total Protein 7.1 Albumin 3.3 L Globulin 3.8 Albumin/Globulin Ratio 0.9 L Triglycerides 74 D Cholesterol 171 LDL Cholesterol Direct 114 HDL Cholesterol 39 Urine Color Yellow Urine Clarity Hazy Urine pH 5.0 Ur Specific [place] 1.010 Urine Protein 3+ H Urine Glucose (UA) 1+ Urine Ketones Negative Urine Blood 1+ H Urine Nitrate Negative Urine Bilirubin Negative Urine Urobilinogen Normal Ur Leukocyte Esterase 1+ H Urine WBC (Auto) 52 H Urine RBC (Auto) 24 H Urine WBC Clumps (Auto) Few H Ur Squamous Epith Cells 10 H Urine Bacteria Many H Influenza Typ A,B (EIA) 06/06/18 06/06/18 06/06/18 04:20 07:46 11:02 WBC RBC Hgb Hct MCV MCH MCHC RDW Plt Count MPV Neut % (Auto) Lymph % (Auto) [place] % (Auto) Eos % (Auto) Baso % (Auto) Neut # (Auto) Lymph # (Auto) [place] # (Auto) Eos # (Auto) Baso # (Auto) Neutrophils % (Manual) Band Neutrophils % Lymphocytes % (Manual) Monocytes % (Manual) Eosinophils % (Manual) Platelet Estimate Sodium Potassium Chloride Carbon Dioxide Anion Gap BUN Creatinine Est GFR ( Amer) Est GFR (Non-Af Amer) POC Glucose (mg/dL) 210 H Random Glucose Hemoglobin A1c 9.3 H Calcium Phosphorus Magnesium Total Bilirubin AST ALT Alkaline Phosphatase Total Creatine Kinase 150 H CK-MB (Mass) 3.62 H Troponin I 0.0610 NT-Pro-B Natriuret Pep Total Protein Albumin Globulin Albumin/Globulin Ratio Triglycerides Cholesterol LDL Cholesterol Direct HDL Cholesterol Urine Color Urine Clarity Urine pH Ur Specific [place] Urine Protein Urine Glucose (UA) Urine Ketones Urine Blood Urine Nitrate Urine Bilirubin Urine Urobilinogen Ur Leukocyte Esterase Urine WBC (Auto) Urine RBC (Auto) Urine WBC Clumps (Auto) Ur Squamous Epith Cells Urine Bacteria Influenza Typ A,B (EIA) 06/06/18 06/06/18 11:23 16:06 WBC RBC Hgb Hct MCV MCH MCHC RDW Plt Count MPV Neut % (Auto) Lymph % (Auto) [place] % (Auto) Eos % (Auto) Baso % (Auto) Neut # (Auto) Lymph # (Auto) [place] # (Auto) Eos # (Auto) Baso # (Auto) Neutrophils % (Manual) Band Neutrophils % Lymphocytes % (Manual) Monocytes % (Manual) Eosinophils % (Manual) Platelet Estimate Sodium Potassium Chloride Carbon Dioxide Anion Gap BUN Creatinine Est GFR ( Amer) Est GFR (Non-Af Amer) POC Glucose (mg/dL) 134 H 151 H Random Glucose Hemoglobin A1c Calcium Phosphorus Magnesium Total Bilirubin AST ALT Alkaline Phosphatase Total Creatine Kinase CK-MB (Mass) Troponin I NT-Pro-B Natriuret Pep Total Protein Albumin Globulin Albumin/Globulin Ratio Triglycerides Cholesterol LDL Cholesterol Direct HDL Cholesterol Urine Color Urine Clarity Urine pH Ur Specific [place] Urine Protein Urine Glucose (UA) Urine Ketones Urine Blood Urine Nitrate Urine Bilirubin Urine Urobilinogen Ur Leukocyte Esterase Urine WBC (Auto) Urine RBC (Auto) Urine WBC Clumps (Auto) Ur Squamous Epith Cells Urine Bacteria Influenza Typ A,B (EIA) Assessment & Plan - Assessment and Plan (Free Text) Assessment: CHF exacerbation, acute on chronic - Patient is s/p CABAG 2015 - ECHO 2015: Grade IV restrictive diastolic dysfunction and systolic dysfunction - Troponins negative x3, BNP is 7020 on admission - ECHO (06/06/18): Reviewed with Dr. Huerta- Systolic CHF; Pleural Effusion; EF 20% - Lipid Panel: Total Cholesterol 171; LDL 114; HDL 39; Triglycerides 74 - Medications: * Lasix 40mg IVP BID * Lopressor 25mg PO BID * Hold CARMEL/ARb pending improved renal function * Aspirin 81mg daily * Consider statin Pleural Effusion - possibly secondary to CHF exacerbation - Chest CT: Round consolidation versus localized pleural effusion noted at the medial aspect of the right upper chest. Reticular opacities and ground-glass opacities are noted in the upper lobes larger on the left. Moderate to large right pleural effusion. Calcified granuloma and calcified mediastinal and hilar lymphadenopathy are again noted. Findings likely due to prior granulomatosis disease or sarcoidosis. Moderate cardiomegaly. - Pulm Consult: Dr. High --> help appreciated - Patient placed on BiPAP Case discussed with Dr. Bradley Xavier PGY-2 <Jamaal Huerta - Last Filed: 06/06/18 23:36> Meds - Medications Medications: Current Medications Acetaminophen (Tylenol 325mg Tab) 650 mg PO Q6 PRN PRN Reason: Fever >100.4 F Acetaminophen (Tylenol 325mg Tab) 650 mg PO Q6 PRN PRN Reason: Pain, moderate (4-7) Last Admin: 06/06/18 00:55 Dose: 650 mg Albuterol/Ipratropium (Duoneb 3 Mg/0.5 Mg (3 Ml) Ud) 3 ml INH RQ4 PATRICIA Last Admin: 06/06/18 16:43 Dose: 3 ml Aspirin (Ecotrin) 81 mg PO DAILY [facility] Dextrose (Glutose 15) 0 gm PO ONCE PRN; Protocol PRN Reason: Hypoglycemia Protocol Dextrose (Dextrose 50% Inj) 0 ml IV STAT PRN; Protocol PRN Reason: Hypoglycemia Protocol Furosemide (Lasix) 40 mg IVP BID [facility] Last Admin: 06/06/18 17:19 Dose: 40 mg Glucagon (Glucagen Diagnostic Kit) 0 mg IM STAT PRN; Protocol PRN Reason: Hypoglycemia Protocol Heparin Sodium (Porcine) (Heparin) 5,000 units SC Q8 [facility] Last Admin: 06/06/18 21:53 Dose: 5,000 units Dextrose (Dextrose 5% In Water 1000 Ml) 1,000 mls @ 0 mls/hr IV .Q0M PRN; Protocol PRN Reason: Hypoglycemia Protocol Aztreonam 1 gm/ Sodium (Chloride) 100 mls @ 100 mls/hr IVPB Q8 PATRICIA; Protocol Last Admin: 06/06/18 21:53 Dose: 100 mls/hr Doxycycline Hyclate 100 mg/ (Sodium Chloride) 100 mls @ 100 mls/hr IVPB Q12H [facility]; Protocol Last Admin: 06/06/18 13:12 Dose: 100 mls/hr Insulin Human Regular (Novolin R) 0 unit SC ACHS [facility]; Protocol Last Admin: 06/06/18 21:53 Dose: Not Given Metoprolol Tartrate (Lopressor) 25 mg PO BID [facility] Last Admin: 06/06/18 17:19 Dose: 25 mg Pneumococcal Polyvalent Vaccine (Pneumovax 23 Vaccine) 0.5 ml IM .ONCE ONE Stop: 06/08/18 14:01 Results - Vital Signs Recent Vital Signs: Last Vital Signs Temp 97.5 F L 06/06/18 15:00 Pulse 102 H 06/06/18 15:00 Resp 18 06/06/18 15:00 BP 151/94 H 06/06/18 17:19 Pulse Ox 97 06/06/18 15:00 - Labs Result Diagrams: 06/06/18 04:20 06/06/18 04:20 Labs: Laboratory Results - last 24 hr 06/06/18 06/06/18 06/06/18 04:20 04:20 04:20 WBC 8.3 RBC 4.20 Hgb 12.1 Hct 37.4 MCV 89.0 MCH 28.9 MCHC 32.5 L RDW 14.5 Plt Count 262 MPV 10.0 Neut % (Auto) 77.7 H Lymph % (Auto) 13.6 L [place] % (Auto) 7.8 Eos % (Auto) 0.4 Baso % (Auto) 0.5 Neut # (Auto) 6.5 Lymph # (Auto) 1.1 [place] # (Auto) 0.6 Eos # (Auto) 0.0 Baso # (Auto) 0.0 Sodium 140 Potassium 4.3 Chloride 108 H Carbon Dioxide 23 Anion Gap 13 BUN 26 H Creatinine 1.6 H Est GFR ( Amer) 38 Est GFR (Non-Af Amer) 31 POC Glucose (mg/dL) Random Glucose 151 H D Hemoglobin A1c 9.3 H Calcium 8.2 L Phosphorus 4.5 Magnesium 1.8 Total Bilirubin 0.6 AST 79 H D ALT 52 D Alkaline Phosphatase 111 Total Creatine Kinase 129 CK-MB (Mass) 2.69 Troponin I 0.0620 Total Protein 7.1 Albumin 3.3 L Globulin 3.8 Albumin/Globulin Ratio 0.9 L Triglycerides 74 D Cholesterol 171 LDL Cholesterol Direct 114 HDL Cholesterol 39 06/06/18 06/06/18 06/06/18 07:46 11:02 11:23 WBC RBC Hgb Hct MCV MCH MCHC RDW Plt Count MPV Neut % (Auto) Lymph % (Auto) [place] % (Auto) Eos % (Auto) Baso % (Auto) Neut # (Auto) Lymph # (Auto) [place] # (Auto) Eos # (Auto) Baso # (Auto) Sodium Potassium Chloride Carbon Dioxide Anion Gap BUN Creatinine Est GFR ( Amer) Est GFR (Non-Af Amer) POC Glucose (mg/dL) 210 H 134 H Random Glucose Hemoglobin A1c Calcium Phosphorus Magnesium Total Bilirubin AST ALT Alkaline Phosphatase Total Creatine Kinase 150 H CK-MB (Mass) 3.62 H Troponin I 0.0610 Total Protein Albumin Globulin Albumin/Globulin Ratio Triglycerides Cholesterol LDL Cholesterol Direct HDL Cholesterol 06/06/18 06/06/18 16:06 21:42 WBC RBC Hgb Hct MCV MCH MCHC RDW Plt Count MPV Neut % (Auto) Lymph % (Auto) [place] % (Auto) Eos % (Auto) Baso % (Auto) Neut # (Auto) Lymph # (Auto) [place] # (Auto) Eos # (Auto) Baso # (Auto) Sodium Potassium Chloride Carbon Dioxide Anion Gap BUN Creatinine Est GFR ( Amer) Est GFR (Non-Af Amer) POC Glucose (mg/dL) 151 H 221 H Random Glucose Hemoglobin A1c Calcium Phosphorus Magnesium Total Bilirubin AST ALT Alkaline Phosphatase Total Creatine Kinase CK-MB (Mass) Troponin I Total Protein Albumin Globulin Albumin/Globulin Ratio Triglycerides Cholesterol LDL Cholesterol Direct HDL Cholesterol Assessment & Plan - Assessment and Plan (Free Text) Assessment: Patient seen and evaluated personally by me. Plan of care d/w the resident and as documented
--- NOTE | 2018-06-06 20:35 | PCM.RRT ---
REGISTERED RESPIRATORY TECHNICIAN Nurses Assessment - Situation Date: 06/06/18 Time REGISTERED RESPIRATORY TECHNICIAN was called: 19:29 REGISTERED RESPIRATORY TECHNICIAN Responder Arrival Time:: 19:33 REGISTERED RESPIRATORY TECHNICIAN Location:: Med/Surg Room Number: 564A REGISTERED RESPIRATORY TECHNICIAN Reason for Call: Tachycardia, Hypertension REGISTERED RESPIRATORY TECHNICIAN Called By: RN (On arrival pt is visibly anxious, but denies any difficulty breathing, chest pain or shortness of breath. Pt was breathing comfortably on the BPAP. Pt began to feel better after calming her down. She deneis any other symptoms at this time. ) - IV IV Inserted during REGISTERED RESPIRATORY TECHNICIAN?: No - Respiratory REGISTERED RESPIRATORY TECHNICIAN Delivery Method: BiPAP @% Received Nebulizer Treatments: No Was the Patient Ventilated with Bag/Mask 100% O2?: No Secretions Suctioned?: No Was the Patient Intubated?: No Was the Patient Placed on a Ventilator?: No - Ventilator Settings FIO2 (% Oxygen): 40 - Diagnostic Test Ordered EKG: No Chest X-Ray: No CT Scan: No CPR started during REGISTERED RESPIRATORY TECHNICIAN?: No - Vital Signs Vital Signs: Rapid Response Vital Sign Blood Pressure 150/93 Pulse Rate 99 Respiratory Rate 24 Temperature 98.1 F Oxygen Saturation 98 - Ramy Coma Scale Coma Scale Eye Opening: Spontaneous Coma Scale Motor: Obeys Commands Movement Coma Scale Verbal: Oriented Coma Scale Total: 15 - Time REGISTERED RESPIRATORY TECHNICIAN Ended Time REGISTERED RESPIRATORY TECHNICIAN Ended: 19:39 - Vital Signs at end of REGISTERED RESPIRATORY TECHNICIAN Vital Signs at end of REGISTERED RESPIRATORY TECHNICIAN: Rapid Response End Vital Sign Blood Pressure 147/82 Pulse Rate 98 Respiratory Rate 24 Temperature 98.0 F O2 Sat by Pulse Oximetry 97 - Recommendations 5) REGISTERED RESPIRATORY TECHNICIAN Level of Care Recommendations: Remain in current setting Notifications: Attending Physician - Respiratory Oxygen Delivery Method: BiPAP @%
[2018-06-07] MEDS: Albuterol-Ipratrop 3 mg / 0.5 (3 ml) UD INH SCH ×7 (00:09→20:51)
[2018-06-07] MEDS: Aztreonam 1 GM in Sodium Chloride 0.9% 100 ML IVPB SCH ×3 (05:42→22:27)
--- NOTE | 2018-06-07 07:20 | CP.PCM.PN ---
Subjective - Date & Time of Evaluation Date of Evaluation: 06/07/18 Time of Evaluation: 07:18 - Subjective Subjective: PGY-1 Mojgan Desai D.O. Medicine progress note for Dr. Venegas's service: Patient was seen and examine this morning. TELE RN called last night for anxiety. Patient is still anxious this morning. She is complaining of SOB but is not visible in respiratory distress on NC. She is intermittently using BiPAP but does not like it. Objective - Vital Signs/Intake and Output Vital Signs (last 24 hours): Temp Pulse Resp BP Pulse Ox 97.4 F L 100 H 20 150/84 100 06/06/18 23:00 06/06/18 23:00 06/06/18 23:00 06/06/18 23:00 06/06/18 23:00 Intake and Output: 06/07/18 06/07/18 06:59 18:59 Intake Total 500 Output Total 850 Balance -350 - Medications Medications: Current Medications Acetaminophen (Tylenol 325mg Tab) 650 mg PO Q6 PRN PRN Reason: Fever >100.4 F Acetaminophen (Tylenol 325mg Tab) 650 mg PO Q6 PRN PRN Reason: Pain, moderate (4-7) Last Admin: 06/06/18 00:55 Dose: 650 mg Albuterol/Ipratropium (Duoneb 3 Mg/0.5 Mg (3 Ml) Ud) 3 ml INH RQ4 [facility] Last Admin: 06/07/18 03:39 Dose: 3 ml Aspirin (Ecotrin) 81 mg PO DAILY [facility] Dextrose (Glutose 15) 0 gm PO ONCE PRN; Protocol PRN Reason: Hypoglycemia Protocol Dextrose (Dextrose 50% Inj) 0 ml IV STAT PRN; Protocol PRN Reason: Hypoglycemia Protocol Furosemide (Lasix) 40 mg IVP BID [facility] Last Admin: 06/06/18 17:19 Dose: 40 mg Glucagon (Glucagen Diagnostic Kit) 0 mg IM STAT PRN; Protocol PRN Reason: Hypoglycemia Protocol Heparin Sodium (Porcine) (Heparin) 5,000 units SC Q8 [facility] Last Admin: 06/07/18 05:42 Dose: 5,000 units Dextrose (Dextrose 5% In Water 1000 Ml) 1,000 mls @ 0 mls/hr IV .Q0M PRN; Protocol PRN Reason: Hypoglycemia Protocol Aztreonam 1 gm/ Sodium (Chloride) 100 mls @ 100 mls/hr IVPB Q8 [facility]; Protocol Last Admin: 06/07/18 05:42 Dose: 100 mls/hr Doxycycline Hyclate 100 mg/ (Sodium Chloride) 100 mls @ 100 mls/hr IVPB Q12H [facility]; Protocol Last Admin: 06/07/18 01:05 Dose: 100 mls/hr Insulin Human Regular (Novolin R) 0 unit SC ACHS [facility]; Protocol Last Admin: 06/06/18 21:53 Dose: Not Given Metoprolol Tartrate (Lopressor) 25 mg PO BID [facility] Last Admin: 06/06/18 17:19 Dose: 25 mg Pneumococcal Polyvalent Vaccine (Pneumovax 23 Vaccine) 0.5 ml IM .ONCE ONE Stop: 06/08/18 14:01 - Labs Labs: 06/06/18 04:20 06/06/18 04:20 - Constitutional Appears: No Acute Distress - Head Exam Head Exam: ATRAUMATIC, NORMAL INSPECTION - Eye Exam Eye Exam: EOMI, Normal appearance - ENT Exam ENT Exam: Mucous Membranes Moist - Neck Exam Neck Exam: Normal Inspection - Respiratory Exam Respiratory Exam: Decreased Breath Sounds, Rhonchi, NORMAL BREATHING PATTERN. absent: Respiratory Distress - Cardiovascular Exam Cardiovascular Exam: RRR, +S1, +S2 - GI/Abdominal Exam GI & Abdominal Exam: Soft. absent: Distended, Tenderness - Extremities Exam Extremities Exam: Normal Inspection. absent: Pedal Edema - Back Exam Back Exam: NORMAL INSPECTION - Neurological Exam Neurological Exam: Alert, Awake, Oriented x3 - Psychiatric Exam Psychiatric exam: Anxious - Skin Skin Exam: Dry, Normal Color, Warm Assessment and Plan - Assessment and Plan (Free Text) Assessment: 78 year old female with PMHx of CAD (CABG 2014), HTN, T2DM, COPD, and osteoporosis, presenting for evaluation of SOB, and admitted for treatment of an acute CHF exacerbation. Plan: Acute systolic CHF exacerbation (HFrEF) - BNP is 7020 on admission - Troponins negative x3 - Echo: EF 20%, PFO, mod MR, calcified AV, LA dilation - Thoracentesis 06/07- 250 cc - Lasix 20 mg IVP BID - Lopressor 25 mg PO BID - Holding ACEI/ARB due to worsening kidney function - ASA 81 mg PO daily - Crestor 5 mg PO QHS - Cardiology consulted (Bradley) - IR consulted ([facility]on) COPD excerbation - 20 pack years, quit 2 years ago - BiPAP PRN - CXR: Diffuse increased interstitial airspace opacities suggestive for edema/infiltrate, superimposed confluent consolidative changes in left mid to lower lung, and right lung apex and base - CT chest: Markedly limited study degraded by motion artifact. The evaluation is also limited without IV contrast administration. Round consolidation versus localized pleural effusion noted at the medial aspect of the right upper chest. Reticular opacities and ground-glass opacities are noted in the upper lobes larger on the left. Moderate to large right pleural effusion. Calcified granuloma and calcified mediastinal and hilar lymphadenopathy are again noted. Findings likely due to prior granulomatosis disease or sarcoidosis. Moderate cardiomegaly. - Breo Ellipta daily - Duonebs Q4H - Solumedrol 40 mg IV Q6H - Pulmonary consulted ([place]ennox) Acute kidney insufficiency, worsening - Hold ACEI/ARB - Decrease Lasix dose - F/u urine electrolytes - Renal US pending - Nephrology consulted (Dior) Pneumonia (CAP) - CXR: Diffuse increased interstitial airspace opacities suggestive for edema/infiltrate, superimposed confluent consolidative changes in left mid to lower lung, and right lung apex and base - Flu negative - Aztreonam 1 g IV Q8H- started 2/4 - Doxycycline 100 mg IV Q12H- started 2/4 Type 2 diabetes mellitus, chronic - Accucheck ACHS - ISS high ACHS - Hypoglycemia protocol - Lipid panel wnl - Crestor 5 mg PO QHS Hypertension - Vitals Q6H - Lasix 20 mg IVP BID - Lopressor 25 mg PO BID Ppx: VTE: Heparin 5000 units SC Q8H, SCDs GI: Protonix 40 mg IVP daily Code status: full code Case discussed with attending, Dr. Venegas.
[2018-06-07 07:35] LABS: BASO % 0.7 % (0.0-2.0); EOS # 0.1 K/uL (0.0-0.7); EOS % 1.8 % (0.0-4.0); HEMOGLOBIN 11.6 g/dL (11.0-16.0); LYMPH # 1.2 K/uL (1.0-4.3); LYMPH % 18.9 % (20.0-40.0); MEAN CELL VOLUME 89.6 fL (81.0-99.0); MEAN CORPUSCULAR HEMOGLOBIN 29.7 pg (27.0-31.0); MEAN CORPUSCULAR HGB CONC 33.1 g/dL (33.0-37.0); MONO # 0.6 K/uL (0.0-0.8); MONO % 9.1 % (0.0-10.0); NEUT # 4.6 K/uL (1.8-7.0); NEUT % 69.5 % (50.0-75.0); RBC 3.92 Mil/uL (3.80-5.20); RED CELL DISTRIBUTION WIDTH 14.4 % (11.5-14.5); WHITE BLOOD COUNT 6.6 K/uL (4.8-10.8)
[2018-06-07 07:45] LABS: INR 1.2; PROTHROMBIN TIME 12.7 SECONDS (9.7-12.2)
[2018-06-07 07:58] LABS: ALB/GLOB RATIO 0.9 (1.0-2.1); CALCIUM 8.1 mg/dl (8.6-10.4)
[2018-06-07] MEDS: (Novolin R) Insulin Human Regular 100 units/ml vial SC SCH ×5 (08:29→22:28)
[2018-06-07] MEDS ORDERED: Lidocaine Hydrochloride 10 ML INJ ONE (11:00)
--- NOTE | 2018-06-07 11:53 | PCM.SURG1 ---
Surgeon's Initial Post Op Note - Surgeon's Notes Surgeon: Darci Colón MD Mold Preparer: NONE Type of Anesthesia: Local Pre-Operative Diagnosis: Right pleural effusion Operative Findings: US showed a small right effusion Post-Operative Diagnosis: Right pleural effusion Operation Performed: US guided right thoracentesis Specimen/Specimens Removed: 560 cc of straw colored fluid Estimated Blood Loss: EBL {In ML}: 0 Blood Products Given: N/A Drains Used: No Drains Post-Op Condition: Fair Date of Surgery/Procedure: 06/07/18 Time of Surgery/Procedure: 11:50
--- NOTE | 2018-06-07 11:54 | CARD ---
APPROVED REPORT Date of service: 06/06/2018 EXAM: Two-dimensional and M-mode echocardiogram with Doppler and color Doppler. INDICATION CAD Surgery/Intervention CABG: Date: 2014 sob RISK FACTORS Hypertension Diabetes 2D DIMENSIONS IVSd0.9 (0.7-1.1cm)LVDd6.3 (3.9-5.9cm) PWd0.8 (0.7-1.1cm)LA Uuofki34 (18-58mL) LVDs5.6 (2.5-4.0cm)FS (%) 11.8 % LVEF (%)24.9 (>50%)LVEF (Anne's)27.94 % IVC0.00 cm M-Mode DIMENSIONS RVDd2.05 (2.1-3.2cm)Left Atrium (MM)4.67 (2.5-4.0cm) IVSd1.20 (0.7-1.1cm)Aortic Root2.66 (2.2-3.7cm) LVDd6.05 (4.0-5.6cm)Aortic Cusp Exc.1.68 (1.5-2.0cm) PWd0.72 (0.7-1.1cm)FS (%) 6 % LVDs5.66 (2.0-3.8cm)LVEF (%)24 (>50%) Aortic Valve AoV Peak Dhswkwql694.6cm/sAoV VTI35.2cmAO Peak GR.15mmHg LVOT Peak Smitwcbh18.9cm/sLVOT VTI14.31cmAO Mean GR.9mmHg AI P 1/2 Lriz175ig Mitral Valve MV E Lylzrsrm529.3cm/sMV A Lflqdsor434.4cm/sE/A ratio0.7 XCUD834.22 cm/s TDI Lateral E' Peak V4.03cm/sMedial E' Peak V6.48cm/sE/Lateral E'26.4 E/Medial E'16.4 Tricuspid Valve TR Peak Wdpdscjp681zc/sTR Peak Gr.79riAsBQNE29jvPd <Conclusion> Left ventricle: thickness: normal; size:dilated overall ejection fraction: 20%: diastolic filling pressures: elevated Mitral valve: annulus: normal: leaflets: normal: excursion: normal; no significant trans-mitral gradient: moderate incompetence: left atrium:dilated Aortic valve: leaflets:calcific thickening: excursion: normal;16/8 mmHgpeak and mean trans-aortic gradient: mild incompetence: aortic root: normal Right sided Structures: Pulmonary valve: normal; no significant incompetence; Tricuspid valve: normal; no significant incompetence: Intra-cardiac hemodynamics: pulmonary systolic pressures: normal; central venous pressures: normal Patent foramen ovale with a left to right shunt Trace pericardial effusion
--- NOTE | 2018-06-07 12:10 | CP.PCM.PN ---
<Dianna Xavier - Last Filed: 06/07/18 17:04> Subjective - Date & Time of Evaluation Date of Evaluation: 06/07/18 Time of Evaluation: 08:00 - Subjective Subjective: Cardiology Progress Note for Dr. Huerta: Patient was seen and examined at bedside in the AM. Patient states she is feeling slightly better today but she continues to feel short of breath. She states she is using her BiPAP machine on and off as the face mask is small on her. She denies other complaints at this time. Objective - Vital Signs/Intake and Output Vital Signs (last 24 hours): Temp Pulse Resp BP Pulse Ox 97.5 F L 105 H 105 H 146/85 96 06/07/18 07:57 06/07/18 07:57 06/07/18 07:57 06/07/18 09:29 06/07/18 07:57 Intake and Output: 06/07/18 06/07/18 06:59 18:59 Intake Total 500 Output Total 850 Balance -350 - Medications Medications: Current Medications Acetaminophen (Tylenol 325mg Tab) 650 mg PO Q6 PRN PRN Reason: Fever >100.4 F Acetaminophen (Tylenol 325mg Tab) 650 mg PO Q6 PRN PRN Reason: Pain, moderate (4-7) Last Admin: 06/06/18 00:55 Dose: 650 mg Albuterol/Ipratropium (Duoneb 3 Mg/0.5 Mg (3 Ml) Ud) 3 ml INH RQ4 [facility] Last Admin: 06/07/18 11:14 Dose: Not Given Aspirin (Ecotrin) 81 mg PO DAILY [facility] Last Admin: 06/07/18 09:29 Dose: 81 mg Dextrose (Glutose 15) 0 gm PO ONCE PRN; Protocol PRN Reason: Hypoglycemia Protocol Dextrose (Dextrose 50% Inj) 0 ml IV STAT PRN; Protocol PRN Reason: Hypoglycemia Protocol Furosemide (Lasix) 40 mg IVP BID [facility] Last Admin: 06/07/18 09:29 Dose: 40 mg Glucagon (Glucagen Diagnostic Kit) 0 mg IM STAT PRN; Protocol PRN Reason: Hypoglycemia Protocol Heparin Sodium (Porcine) (Heparin) 5,000 units SC Q8 [facility] Last Admin: 06/07/18 05:42 Dose: 5,000 units Dextrose (Dextrose 5% In Water 1000 Ml) 1,000 mls @ 0 mls/hr IV .Q0M PRN; Protocol PRN Reason: Hypoglycemia Protocol Aztreonam 1 gm/ Sodium (Chloride) 100 mls @ 100 mls/hr IVPB Q8 [facility]; Protocol Last Admin: 06/07/18 05:42 Dose: 100 mls/hr Doxycycline Hyclate 100 mg/ (Sodium Chloride) 100 mls @ 100 mls/hr IVPB Q12H [facility]; Protocol Last Admin: 06/07/18 01:05 Dose: 100 mls/hr Insulin Human Regular (Novolin R) 0 unit SC ACHS [facility]; Protocol Last Admin: 06/07/18 08:29 Dose: 3 units Metoprolol Tartrate (Lopressor) 25 mg PO BID [facility] Last Admin: 06/07/18 09:28 Dose: 25 mg Pneumococcal Polyvalent Vaccine (Pneumovax 23 Vaccine) 0.5 ml IM .ONCE ONE Stop: 06/08/18 14:01 - Labs Labs: 06/07/18 07:23 06/07/18 07:23 PT 12.7 SECONDS (9.7-12.2) H 06/07/18 07:23 INR 1.2 06/07/18 07:23 APTT 35 SECONDS (21-34) H 06/07/18 07:23 - Constitutional Appears: In Acute Distress, Chronically Ill - Head Exam Head Exam: ATRAUMATIC, NORMAL INSPECTION - Eye Exam Eye Exam: EOMI, Normal appearance - ENT Exam ENT Exam: Mucous Membranes Moist - Respiratory Exam Respiratory Exam: Rhonchi - Cardiovascular Exam Cardiovascular Exam: Tachycardia, +S1, +S2 - GI/Abdominal Exam GI & Abdominal Exam: Soft, Normal Bowel Sounds. absent: Tenderness - Extremities Exam Extremities Exam: Normal Inspection - Neurological Exam Neurological Exam: Alert, Awake, Oriented x3 - Psychiatric Exam Psychiatric exam: Anxious - Skin Skin Exam: Normal Color Assessment and Plan - Assessment and Plan (Free Text) Assessment: CHF exacerbation, acute on chronic - Patient is s/p CABAG 2014 - ECHO 2015: Grade IV restrictive diastolic dysfunction and systolic dysfunction - Troponins negative x3, BNP is 7020 on admission - ECHO (06/06/18): Reviewed with Dr. Huerta- Systolic CHF; Pleural Effusion; EF 20% - Lipid Panel: Total Cholesterol 171; LDL 114; HDL 39; Triglycerides 74 - Medications: * Lasix 20mg IVP BID * Lopressor 25mg PO BID * Hold CARMEL/ARb pending improved renal function * Aspirin 81mg daily * Crestor 5mg po hs Pleural Effusion - possibly secondary to CHF exacerbation - Chest CT: Round consolidation versus localized pleural effusion noted at the medial aspect of the right upper chest. Reticular opacities and ground-glass opacities are noted in the upper lobes larger on the left. Moderate to large right pleural effusion. Calcified granuloma and calcified mediastinal and hilar lymphadenopathy are again noted. Findings likely due to prior granulomatosis disease or sarcoidosis. Moderate cardiomegaly. - Pulm Consult: Dr. High --> help appreciated - Patient placed on BiPAP - s/p thoracentesis - removed 250cc of straw colored fluid Case discussed with Dr. Bradley Xavier PGY-2 <Jamaal Huerta - Last Filed: 06/07/18 22:58> Objective - Vital Signs/Intake and Output Vital Signs (last 24 hours): Temp Pulse Resp BP Pulse Ox 97.5 F L 106 H 21 120/60 95 06/07/18 15:45 06/07/18 15:45 06/07/18 15:45 06/07/18 17:49 06/07/18 15:45 - Medications Medications: Current Medications Acetaminophen (Tylenol 325mg Tab) 650 mg PO Q6 PRN PRN Reason: Fever >100.4 F Acetaminophen (Tylenol 325mg Tab) 650 mg PO Q6 PRN PRN Reason: Pain, moderate (4-7) Last Admin: 06/06/18 00:55 Dose: 650 mg Albuterol/Ipratropium (Duoneb 3 Mg/0.5 Mg (3 Ml) Ud) 3 ml INH RQ4 [facility] Last Admin: 06/07/18 20:51 Dose: 3 ml Aspirin (Ecotrin) 81 mg PO DAILY [facility] Last Admin: 06/07/18 09:29 Dose: 81 mg Dextrose (Glutose 15) 0 gm PO ONCE PRN; Protocol PRN Reason: Hypoglycemia Protocol Dextrose (Dextrose 50% Inj) 0 ml IV STAT PRN; Protocol PRN Reason: Hypoglycemia Protocol Fluticasone/Vilanterol (Breo Ellipta 100-25 Mcg Inh) 1 puff INH RQD [facility] Furosemide (Lasix) 20 mg IVP BID [facility] Last Admin: 06/07/18 17:49 Dose: 20 mg Glucagon (Glucagen Diagnostic Kit) 0 mg IM STAT PRN; Protocol PRN Reason: Hypoglycemia Protocol Heparin Sodium (Porcine) (Heparin) 5,000 units SC Q8 [facility] Last Admin: 06/07/18 22:25 Dose: 5,000 units Dextrose (Dextrose 5% In Water 1000 Ml) 1,000 mls @ 0 mls/hr IV .Q0M PRN; Protocol PRN Reason: Hypoglycemia Protocol Aztreonam 1 gm/ Sodium (Chloride) 100 mls @ 100 mls/hr IVPB Q8 [facility]; Protocol Last Admin: 06/07/18 22:27 Dose: 100 mls/hr Doxycycline Hyclate 100 mg/ (Sodium Chloride) 100 mls @ 100 mls/hr IVPB Q12H [facility]; Protocol Last Admin: 06/07/18 12:22 Dose: 100 mls/hr Insulin Human Regular (Novolin R) 0 unit SC ACHS [facility]; Protocol Last Admin: 06/07/18 22:28 Dose: 3 units Methylprednisolone (Solu-Medrol) 40 mg IVP Q6H [facility] Last Admin: 06/07/18 21:15 Dose: 40 mg Metoprolol Tartrate (Lopressor) 25 mg PO BID [facility] Last Admin: 06/07/18 17:49 Dose: 25 mg Pneumococcal Polyvalent Vaccine (Pneumovax 23 Vaccine) 0.5 ml IM .ONCE ONE Stop: 06/08/18 14:01 Rosuvastatin Calcium (Crestor) 5 mg PO HS [facility] Last Admin: 06/07/18 22:36 Dose: 5 mg - Labs Labs: 06/07/18 07:23 06/07/18 07:23 PT 12.7 SECONDS (9.7-12.2) H 06/07/18 07:23 INR 1.2 06/07/18 07:23 APTT 35 SECONDS (21-34) H 06/07/18 07:23 Assessment and Plan - Assessment and Plan (Free Text) Assessment: Patient seen and evaluated personally by me. Plan of care d/w the resident and as documented
--- NOTE | 2018-06-07 14:07 | CP.PCM.CON ---
<Yariel August - Last Filed: 06/07/18 14:11> History of Present Illness - History of Present Illness History of Present Illness: Yariel August PGY2 Nephrology Consult Note for Dr. Rader Reason for consult: SCOUT Ms. Marcus is a 78 year old Female with a PMH of CAD s/p CABG, DM2, COPD, CHF w/ systolic and diastolic dysfunction, HTN and pneumonia who is ad mitted for shortness of breath likely due to CHF exacerbation and possible pneumonia. Nephrology is consulted for SCOUT. Patient's dyspnea has only mildly improved w/ BiPAP and she is still visibly short of breath when talking. She states that she has had leg swelling for 2 weeks and dysuria for 1 week, but has been unable to take her medications due to financial reasons. She has only been taking her insulin, which she doesn't take regularly. She only uses a rescue inhaler at home, but does not have a nebulizer or other forms of treatment. She denies having issues with her kidneys before but does state that she has been urinating less over the past week. 12-pt ROS was reviewed and is otherwise unremarkable. Chart review doesn't reveal a baseline Cr, except from 2014. Echo (06/2018) revealed dilated LV w/ reduced LVEF, LA dilation, and PFO w/ [id number] shunt; pulm systolic pressures are normal. CT chest revealed right pleural effusion. Patient underwent thoracentesis on 06/07/18 w/ removal of 250cc of straw colored fluid. PMD: Dr. Rodriguez PMH: CAD (CABG 2014), CHF, HTN, IDDM2, osteoporosis, pneumonia PSH: CABG 08/2014; Cardiac Cath 2014 Medications: Other than insulin (not regular), patient states she has not been taking many of her medications for awhile due to financial reasons Allergies: PCN (rash and difficulty breathing) SHx: Quit smoking 2 years ago, 20+ pack year history. Uses a walker to ambulate. FHx: father and mother ; no hx of disease Review of Systems - Review of Systems All systems: reviewed and no additional remarkable complaints except (as per HPi) Past Patient History - Infectious Disease Hx of Infectious Diseases: None - Past Medical History & Family History Past Medical History?: Yes - Past Social History Smoking Status: Light Smoker < 10 Cigarettes Daily - CARDIAC Hx Cardiac Disorders: Yes Hx Hypertension: Yes - PULMONARY Hx Respiratory Disorders: Yes Hx Pneumonia: Yes - NEUROLOGICAL Hx Neurological Disorder: No - HEENT Hx HEENT Problems: Yes Hx Cataracts: Yes (cataract sx 2009) Other/Comment: had cataract surgery-2009 - RENAL Hx Chronic Kidney Disease: No - ENDOCRINE/METABOLIC Hx Diabetes Mellitus Type 2: Yes - HEMATOLOGICAL/ONCOLOGICAL Hx Blood Disorders: No - INTEGUMENTARY Hx Dermatological Problems: No - MUSCULOSKELETAL/RHEUMATOLOGICAL Hx Musculoskeletal Disorders: Yes Hx Falls: No Hx Osteoporosis: Yes - GASTROINTESTINAL Hx Gastrointestinal Disorders: No - GENITOURINARY/GYNECOLOGICAL Hx Genitourinary Disorders: No - PSYCHIATRIC Hx Psychophysiologic Disorder: No Hx Substance Use: No - SURGICAL HISTORY Hx Surgeries: Yes Hx Coronary Artery Bypass Graft: Yes (Triple Bypass; CABG 08/2014 [facility] [place]) Hx Coronary Stent: Yes - ANESTHESIA Hx Anesthesia: Yes Hx Anesthesia Reactions: No Hx Malignant Hyperthermia: No Meds Allergies/Adverse Reactions: Allergies Allergy/AdvReac Type Severity Reaction Status Date / Time Penicillins Allergy Verified 06/05/18 20:15 - Medications Medications: Current Medications Acetaminophen (Tylenol 325mg Tab) 650 mg PO Q6 PRN PRN Reason: Fever >100.4 F Acetaminophen (Tylenol 325mg Tab) 650 mg PO Q6 PRN PRN Reason: Pain, moderate (4-7) Last Admin: 06/06/18 00:55 Dose: 650 mg Albuterol/Ipratropium (Duoneb 3 Mg/0.5 Mg (3 Ml) Ud) 3 ml INH RQ4 [facility] Last Admin: 06/07/18 11:14 Dose: Not Given Aspirin (Ecotrin) 81 mg PO DAILY [facility] Last Admin: 06/07/18 09:29 Dose: 81 mg Dextrose (Glutose 15) 0 gm PO ONCE PRN; Protocol PRN Reason: Hypoglycemia Protocol Dextrose (Dextrose 50% Inj) 0 ml IV STAT PRN; Protocol PRN Reason: Hypoglycemia Protocol Fluticasone/Vilanterol (Breo Ellipta 100-25 Mcg Inh) 1 puff INH RQD [facility] Furosemide (Lasix) 20 mg IVP BID [facility] Glucagon (Glucagen Diagnostic Kit) 0 mg IM STAT PRN; Protocol PRN Reason: Hypoglycemia Protocol Heparin Sodium (Porcine) (Heparin) 5,000 units SC Q8 [facility] Last Admin: 06/07/18 05:42 Dose: 5,000 units Dextrose (Dextrose 5% In Water 1000 Ml) 1,000 mls @ 0 mls/hr IV .Q0M PRN; Protocol PRN Reason: Hypoglycemia Protocol Aztreonam 1 gm/ Sodium (Chloride) 100 mls @ 100 mls/hr IVPB Q8 [facility]; Protocol Last Admin: 06/07/18 05:42 Dose: 100 mls/hr Doxycycline Hyclate 100 mg/ (Sodium Chloride) 100 mls @ 100 mls/hr IVPB Q12H [facility]; Protocol Last Admin: 06/07/18 12:22 Dose: 100 mls/hr Insulin Human Regular (Novolin R) 0 unit SC ACHS [facility]; Protocol Last Admin: 06/07/18 12:51 Dose: 8 units Methylprednisolone (Solu-Medrol) 40 mg IVP Q6H [facility] Metoprolol Tartrate (Lopressor) 25 mg PO BID [facility] Last Admin: 06/07/18 09:28 Dose: 25 mg Pneumococcal Polyvalent Vaccine (Pneumovax 23 Vaccine) 0.5 ml IM .ONCE ONE Stop: 06/08/18 14:01 Rosuvastatin Calcium (Crestor) 5 mg PO HS [facility] Physical Exam - Constitutional Appears: In Acute Distress (respiratory), Chronically Ill - Head Exam Head Exam: ATRAUMATIC, NORMAL INSPECTION - Eye Exam Eye Exam: EOMI, Normal appearance, PERRL Pupil Exam: NORMAL ACCOMODATION, PERRL - ENT Exam ENT Exam: Mucous Membranes Moist, Normal Exam - Neck Exam Neck exam: Positive for: Full Rom, Normal Inspection - Respiratory Exam Respiratory Exam: Prolonged Expiratory Phase, Respiratory Distress. absent: Rales, Rhonchi, Wheezes Additional comments: on NC - Cardiovascular Exam Cardiovascular Exam: Tachycardia, +S1, +S2 - GI/Abdominal Exam GI & Abdominal Exam: Normal Bowel Sounds, Soft. absent: Distended, Tenderness - Extremities Exam Extremities exam: Positive for: full ROM, normal inspection. Negative for: pedal edema - Back Exam Back exam: NORMAL INSPECTION - Neurological Exam Neurological exam: Alert, Oriented x3 - Psychiatric Exam Psychiatric exam: Normal Mood - Skin Skin Exam: Normal Color, Warm Results - Vital Signs Recent Vital Signs: Last Vital Signs Temp 97.5 F L 06/07/18 07:57 Pulse 105 H 06/07/18 07:57 Resp 105 H 06/07/18 07:57 BP 146/85 06/07/18 09:29 Pulse Ox 96 06/07/18 07:57 - Labs Result Diagrams: 06/07/18 07:23 06/07/18 07:23 Labs: Laboratory Results - last 24 hr 06/06/18 06/06/18 06/07/18 16:06 21:42 06:12 WBC RBC Hgb Hct MCV MCH MCHC RDW Plt Count MPV Neut % (Auto) Lymph % (Auto) [place] % (Auto) Eos % (Auto) Baso % (Auto) Neut # (Auto) Lymph # (Auto) [place] # (Auto) Eos # (Auto) Baso # (Auto) PT INR APTT Sodium Potassium Chloride Carbon Dioxide Anion Gap BUN Creatinine Est GFR ( Amer) Est GFR (Non-Af Amer) POC Glucose (mg/dL) 151 H 221 H 221 H Random Glucose Calcium Phosphorus Magnesium Total Bilirubin AST ALT Alkaline Phosphatase Total Protein Albumin Globulin Albumin/Globulin Ratio 06/07/18 06/07/18 06/07/18 07:23 07:23 07:23 WBC 6.6 RBC 3.92 Hgb 11.6 Hct 35.1 MCV 89.6 MCH 29.7 MCHC 33.1 RDW 14.4 Plt Count 257 MPV 10.0 Neut % (Auto) 69.5 Lymph % (Auto) 18.9 L [place] % (Auto) 9.1 Eos % (Auto) 1.8 Baso % (Auto) 0.7 Neut # (Auto) 4.6 Lymph # (Auto) 1.2 [place] # (Auto) 0.6 Eos # (Auto) 0.1 Baso # (Auto) 0.0 PT 12.7 H INR 1.2 APTT 35 H Sodium 139 Potassium 3.6 Chloride 107 Carbon Dioxide 26 Anion Gap 10 BUN 28 H Creatinine 1.9 H Est GFR ( Amer) 31 Est GFR (Non-Af Amer) 26 POC Glucose (mg/dL) Random Glucose 195 H D Calcium 8.1 L Phosphorus 5.1 H Magnesium 1.6 Total Bilirubin 0.4 AST 27 ALT 38 Alkaline Phosphatase 111 Total Protein 6.4 Albumin 3.0 L Globulin 3.3 Albumin/Globulin Ratio 0.9 L 06/07/18 11:33 WBC RBC Hgb Hct MCV MCH MCHC RDW Plt Count MPV Neut % (Auto) Lymph % (Auto) [place] % (Auto) Eos % (Auto) Baso % (Auto) Neut # (Auto) Lymph # (Auto) [place] # (Auto) Eos # (Auto) Baso # (Auto) PT INR APTT Sodium Potassium Chloride Carbon Dioxide Anion Gap BUN Creatinine Est GFR ( Amer) Est GFR (Non-Af Amer) POC Glucose (mg/dL) 311 H Random Glucose Calcium Phosphorus Magnesium Total Bilirubin AST ALT Alkaline Phosphatase Total Protein Albumin Globulin Albumin/Globulin Ratio Assessment & Plan - Assessment and Plan (Free Text) Assessment: 78 year old Female with a PMH of CAD s/p CABG, DM2, COPD, CHF w/ systolic and diastolic dysfunction, HTN and pneumonia who is admitted for shortness of breath likely due to CHF exacerbation and possible pneumonia. Nephrology is consulted for SCOUT. SCOUT (unknown baseline, w/ proteinuria) - likely pre-renal in nature given required diuresis and fluid overload - Agree w/ Lasix was decreased by primary team to 20mg BID IVP from 40mg - ordered UA, renal US and FeUrea for SCOUT - microalb/Cr ratio, total protein/Cr, complements ordered for proteinuria eval - monitor Urine output and daily weight - possible underlying CKD due to uncontrolled DM2 HTN - holding ACEi/ARBs at this time due to SCOUT - cont Lopressor - monitor VS CHF/CAD - cont diuresis - cont BB, statin and ASA - holding MEGHAN blockage at this time due to SCOUT - cardiology is following COPD - cont Abx - cont steroids and breathing treatments Case was reviewed and discussed with Dr. Rader <Naun Rader - Last Filed: 06/08/18 06:37> Meds - Medications Medications: Current Medications Acetaminophen (Tylenol 325mg Tab) 650 mg PO Q6 PRN PRN Reason: Fever >100.4 F Acetaminophen (Tylenol 325mg Tab) 650 mg PO Q6 PRN PRN Reason: Pain, moderate (4-7) Last Admin: 06/06/18 00:55 Dose: 650 mg Albuterol/Ipratropium (Duoneb 3 Mg/0.5 Mg (3 Ml) Ud) 3 ml INH RQ4 [facility] Last Admin: 06/08/18 04:10 Dose: 3 ml Aspirin (Ecotrin) 81 mg PO DAILY [facility] Last Admin: 06/07/18 09:29 Dose: 81 mg Dextrose (Glutose 15) 0 gm PO ONCE PRN; Protocol PRN Reason: Hypoglycemia Protocol Dextrose (Dextrose 50% Inj) 0 ml IV STAT PRN; Protocol PRN Reason: Hypoglycemia Protocol Fluticasone/Vilanterol (Breo Ellipta 100-25 Mcg Inh) 1 puff INH RQD [facility] Furosemide (Lasix) 20 mg IVP BID [facility] Last Admin: 06/07/18 17:49 Dose: 20 mg Glucagon (Glucagen Diagnostic Kit) 0 mg IM STAT PRN; Protocol PRN Reason: Hypoglycemia Protocol Heparin Sodium (Porcine) (Heparin) 5,000 units SC Q8 [facility] Last Admin: 06/08/18 06:09 Dose: 5,000 units Dextrose (Dextrose 5% In Water 1000 Ml) 1,000 mls @ 0 mls/hr IV .Q0M PRN; Protocol PRN Reason: Hypoglycemia Protocol Aztreonam 1 gm/ Sodium (Chloride) 100 mls @ 100 mls/hr IVPB Q8 [facility]; Protocol Last Admin: 06/08/18 06:09 Dose: 100 mls/hr Doxycycline Hyclate 100 mg/ (Sodium Chloride) 100 mls @ 100 mls/hr IVPB Q12H [facility]; Protocol Last Admin: 06/07/18 12:22 Dose: 100 mls/hr Insulin Human Regular (Novolin R) 0 unit SC ACHS [facility]; Protocol Last Admin: 06/07/18 22:28 Dose: 3 units Methylprednisolone (Solu-Medrol) 40 mg IVP Q6H [facility] Last Admin: 06/08/18 02:45 Dose: 40 mg Metoprolol Tartrate (Lopressor) 25 mg PO BID [facility] Last Admin: 06/07/18 17:49 Dose: 25 mg Pneumococcal Polyvalent Vaccine (Pneumovax 23 Vaccine) 0.5 ml IM .ONCE ONE Stop: 06/08/18 14:01 Rosuvastatin Calcium (Crestor) 5 mg PO HS [facility] Last Admin: 06/07/18 22:36 Dose: 5 mg Results - Vital Signs Recent Vital Signs: Last Vital Signs Temp 97.9 F 06/07/18 23:35 Pulse 111 H 06/07/18 23:35 Resp 20 06/07/18 23:35 BP 121/67 06/07/18 23:35 Pulse Ox 98 06/07/18 23:35 - Labs Result Diagrams: 06/07/18 07:23 06/07/18 07:23 Labs: Laboratory Results - last 24 hr 06/07/18 06/07/18 06/07/18 06:12 07:23 07:23 WBC 6.6 RBC 3.92 Hgb 11.6 Hct 35.1 MCV 89.6 MCH 29.7 MCHC 33.1 RDW 14.4 Plt Count 257 MPV 10.0 Neut % (Auto) 69.5 Lymph % (Auto) 18.9 L [place] % (Auto) 9.1 Eos % (Auto) 1.8 Baso % (Auto) 0.7 Neut # (Auto) 4.6 Lymph # (Auto) 1.2 [place] # (Auto) 0.6 Eos # (Auto) 0.1 Baso # (Auto) 0.0 PT INR APTT Sodium 139 Potassium 3.6 Chloride 107 Carbon Dioxide 26 Anion Gap 10 BUN 28 H Creatinine 1.9 H Est GFR ( Amer) 31 Est GFR (Non-Af Amer) 26 POC Glucose (mg/dL) 221 H Random Glucose 195 H D Calcium 8.1 L Phosphorus 5.1 H Magnesium 1.6 Total Bilirubin 0.4 AST 27 ALT 38 Alkaline Phosphatase 111 Lactate Dehydrogenase Total Protein 6.4 Albumin 3.0 L Globulin 3.3 Albumin/Globulin Ratio 0.9 L Urine Color Urine Clarity Urine pH Ur Specific [place] Urine Protein Urine Glucose (UA) Urine Ketones Urine Blood Urine Nitrate Urine Bilirubin Urine Urobilinogen Ur Leukocyte Esterase Urine WBC (Auto) Urine RBC (Auto) Ur Squamous Epith Cells Ur Transition Epith Cell Urine Bacteria Hyaline Casts Ur Random Creatinine U Random Total Protein Ur Random Urea Nitrogn Fluid Source Fluid Appearance Fluid WBC Fluid RBC Fluid Tot Cell Count Fluid Neutrophils Fluid Lymphocytes Fld Monocyte/Macrophag Fluid Comment Complement C3 Complement C4 06/07/18 06/07/18 06/07/18 07:23 11:33 17:00 WBC RBC Hgb Hct MCV MCH MCHC RDW Plt Count MPV Neut % (Auto) Lymph % (Auto) [place] % (Auto) Eos % (Auto) Baso % (Auto) Neut # (Auto) Lymph # (Auto) [place] # (Auto) Eos # (Auto) Baso # (Auto) PT 12.7 H INR 1.2 APTT 35 H Sodium Potassium Chloride Carbon Dioxide Anion Gap BUN Creatinine Est GFR ( Amer) Est GFR (Non-Af Amer) POC Glucose (mg/dL) 311 H 170 H Random Glucose Calcium Phosphorus Magnesium Total Bilirubin AST ALT Alkaline Phosphatase Lactate Dehydrogenase Total Protein Albumin Globulin Albumin/Globulin Ratio Urine Color Urine Clarity Urine pH Ur Specific [place] Urine Protein Urine Glucose (UA) Urine Ketones Urine Blood Urine Nitrate Urine Bilirubin Urine Urobilinogen Ur Leukocyte Esterase Urine WBC (Auto) Urine RBC (Auto) Ur Squamous Epith Cells Ur Transition Epith Cell Urine Bacteria Hyaline Casts Ur Random Creatinine U Random Total Protein Ur Random Urea Nitrogn Fluid Source Fluid Appearance Fluid WBC Fluid RBC Fluid Tot Cell Count Fluid Neutrophils Fluid Lymphocytes Fld Monocyte/Macrophag Fluid Comment Complement C3 Complement C4 06/07/18 06/07/18 06/07/18 17:19 17:19 18:31 WBC RBC Hgb Hct MCV MCH MCHC RDW Plt Count MPV Neut % (Auto) Lymph % (Auto) [place] % (Auto) Eos % (Auto) Baso % (Auto) Neut # (Auto) Lymph # (Auto) [place] # (Auto) Eos # (Auto) Baso # (Auto) PT INR APTT Sodium Potassium Chloride Carbon Dioxide Anion Gap BUN Creatinine Est GFR ( Amer) Est GFR (Non-Af Amer) POC Glucose (mg/dL) Random Glucose Calcium Phosphorus Magnesium Total Bilirubin AST ALT Alkaline Phosphatase Lactate Dehydrogenase 509 Total Protein Albumin Globulin Albumin/Globulin Ratio Urine Color Urine Clarity Urine pH Ur Specific [place] Urine Protein Urine Glucose (UA) Urine Ketones Urine Blood Urine Nitrate Urine Bilirubin Urine Urobilinogen Ur Leukocyte Esterase Urine WBC (Auto) Urine RBC (Auto) Ur Squamous Epith Cells Ur Transition Epith Cell Urine Bacteria Hyaline Casts Ur Random Creatinine U Random Total Protein Ur Random Urea Nitrogn Fluid Source Pleural/thoracentesi Fluid Appearance Clear Fluid WBC 320.0 H Fluid RBC 400.0 H Fluid Tot Cell Count TEST NOT PERFORMED Fluid Neutrophils 4.0 H Fluid Lymphocytes 87.0 H Fld Monocyte/Macrophag 8 H Fluid Comment Complement C3 98.0 Complement C4 31.0 06/07/18 06/07/18 06/07/18 20:50 20:51 20:51 WBC RBC Hgb Hct MCV MCH MCHC RDW Plt Count MPV Neut % (Auto) Lymph % (Auto) [place] % (Auto) Eos % (Auto) Baso % (Auto) Neut # (Auto) Lymph # (Auto) [place] # (Auto) Eos # (Auto) Baso # (Auto) PT INR APTT Sodium Potassium Chloride Carbon Dioxide Anion Gap BUN Creatinine Est GFR ( Amer) Est GFR (Non-Af Amer) POC Glucose (mg/dL) Random Glucose Calcium Phosphorus Magnesium Total Bilirubin AST ALT Alkaline Phosphatase Lactate Dehydrogenase Total Protein Albumin Globulin Albumin/Globulin Ratio Urine Color Urine Clarity Urine pH Ur Specific [place] Urine Protein Urine Glucose (UA) Urine Ketones Urine Blood Urine Nitrate Urine Bilirubin Urine Urobilinogen Ur Leukocyte Esterase Urine WBC (Auto) Urine RBC (Auto) Ur Squamous Epith Cells Ur Transition Epith Cell Urine Bacteria Hyaline Casts Ur Random Creatinine 61.2 U Random Total Protein 320.0 H Ur Random Urea Nitrogn 350 Fluid Source Fluid Appearance Fluid WBC Fluid RBC Fluid Tot Cell Count Fluid Neutrophils Fluid Lymphocytes Fld Monocyte/Macrophag Fluid Comment Complement C3 Complement C4 06/07/18 06/07/18 20:51 21:17 WBC RBC Hgb Hct MCV MCH MCHC RDW Plt Count MPV Neut % (Auto) Lymph % (Auto) [place] % (Auto) Eos % (Auto) Baso % (Auto) Neut # (Auto) Lymph # (Auto) [place] # (Auto) Eos # (Auto) Baso # (Auto) PT INR APTT Sodium Potassium Chloride Carbon Dioxide Anion Gap BUN Creatinine Est GFR ( Amer) Est GFR (Non-Af Amer) POC Glucose (mg/dL) 367 H Random Glucose Calcium Phosphorus Magnesium Total Bilirubin AST ALT Alkaline Phosphatase Lactate Dehydrogenase Total Protein Albumin Globulin Albumin/Globulin Ratio Urine Color Yellow Urine Clarity Hazy Urine pH 5.0 Ur Specific [place] 1.011 Urine Protein 2+ H Urine Glucose (UA) Normal Urine Ketones Negative Urine Blood Negative Urine Nitrate Negative Urine Bilirubin Negative Urine Urobilinogen Normal Ur Leukocyte Esterase Neg Urine WBC (Auto) 5 Urine RBC (Auto) 3 Ur Squamous Epith Cells 13 H Ur Transition Epith Cell < 1 Urine Bacteria Occ H Hyaline Casts 3-5 H Ur Random Creatinine U Random Total Protein Ur Random Urea Nitrogn Fluid Source Fluid Appearance Fluid WBC Fluid RBC Fluid Tot Cell Count Fluid Neutrophils Fluid Lymphocytes Fld Monocyte/Macrophag Fluid Comment Complement C3 Complement C4 Attending/Attestation - Attestation I have personally seen and examined this patient.: Yes I have fully participated in the care of the patient.: Yes I have reviewed all pertinent clinical information: Yes Notes (Text): Patient seen and examined; I agree with the resident's note as above with the following additions/edits: 78 yo F with history of htn, dm, CAD s/p CABG, CHF w/ systolic dysfunction, and CKD, admitted with dyspnea, nephrology being consulted for SCOUT; Patient reports dyspnea over the past 1-2 weeks; had associated leg swelling but has decreased since getting diuresis while admitted; still with significant dypsnea during encounter, barely able to chew her food due to dypsnea; Hemodynamic rise in serum creatinine (increased to 1.9) in the setting of aggre ssive diuresis; does have underlying CKD with serum creatinine 1.7 on presentation (eGFR 29 ml/min), likely representing progression of underlying diabetic kidney disease with serum creatinine 1.3 four years ago; says that she had run out of all her meds and was only using insulin lately; UA reveals 2+ proteinuria although this is in the context of possible UTI (was symptomatic, neg urine culture obtained after getting dose of ceftriaxone); will obtain quantified value; Otherwise, significantly worsened EF noted but doesn't appear to be volume overloaded currently on exam; chest CT shows other pathology present that can explain dyspnea; agree with decreasing lasix to 20 mg bid IVP; -Obtaining limited serology workup for proteinuric kidney disease; -Obtaining renal US; -Avoid nephrotoxic agents (NSAIDS, etc); -Agree with optimizing CHF status w/ B-blockers; -Agree with holding CARMEL inhibitor for now but 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
[2018-06-07] MEDS: MethylPREDNISolone 40 mg Vial IVP SCH ×2 (15:08→21:15)
--- NOTE | 2018-06-07 16:48 | CP.PCM.CON ---
History of Present Illness - History of Present Illness History of Present Illness: Patient is a 78 year old female with PMH of CHF, CAD (CABG 2014), HTN presented with shortness of breath worsening for two days, who had not used BiPAP. Patient seen and examined at bedside, resting comfortably but complaining of feeling hot in her room. Patient is refusing bipap because the mask is too small, however, stated that SOB has improved. Patient denied chest pain, fever, chills, palpitations, nausea, vomiting, diarrhea. Review of Systems - Review of Systems All systems: reviewed and no additional remarkable complaints except (Shortness of breath) Past Patient History - Infectious Disease Hx of Infectious Diseases: None - Past Medical History & Family History Past Medical History?: Yes - Past Social History Smoking Status: Light Smoker < 10 Cigarettes Daily - CARDIAC Hx Cardiac Disorders: Yes Hx Hypertension: Yes - PULMONARY Hx Respiratory Disorders: Yes Hx Pneumonia: Yes - NEUROLOGICAL Hx Neurological Disorder: No - HEENT Hx HEENT Problems: Yes Hx Cataracts: Yes (cataract sx 2009) Other/Comment: had cataract surgery-2009 - RENAL Hx Chronic Kidney Disease: No - ENDOCRINE/METABOLIC Hx Diabetes Mellitus Type 2: Yes - HEMATOLOGICAL/ONCOLOGICAL Hx Blood Disorders: No - INTEGUMENTARY Hx Dermatological Problems: No - MUSCULOSKELETAL/RHEUMATOLOGICAL Hx Musculoskeletal Disorders: Yes Hx Falls: No Hx Osteoporosis: Yes - GASTROINTESTINAL Hx Gastrointestinal Disorders: No - GENITOURINARY/GYNECOLOGICAL Hx Genitourinary Disorders: No - PSYCHIATRIC Hx Psychophysiologic Disorder: No Hx Substance Use: No - SURGICAL HISTORY Hx Surgeries: Yes Hx Coronary Artery Bypass Graft: Yes (Triple Bypass; CABG 08/2014 [facility] [place] Hx Coronary Stent: Yes - ANESTHESIA Hx Anesthesia: Yes Hx Anesthesia Reactions: No Hx Malignant Hyperthermia: No Meds Allergies/Adverse Reactions: Allergies Allergy/AdvReac Type Severity Reaction Status Date / Time Penicillins Allergy Verified 06/05/18 20:15 - Medications Medications: Current Medications Acetaminophen (Tylenol 325mg Tab) 650 mg PO Q6 PRN PRN Reason: Fever >100.4 F Acetaminophen (Tylenol 325mg Tab) 650 mg PO Q6 PRN PRN Reason: Pain, moderate (4-7) Last Admin: 06/06/18 00:55 Dose: 650 mg Albuterol/Ipratropium (Duoneb 3 Mg/0.5 Mg (3 Ml) Ud) 3 ml INH RQ4 [facility] Last Admin: 06/07/18 16:22 Dose: Not Given Aspirin (Ecotrin) 81 mg PO DAILY [facility] Last Admin: 06/07/18 09:29 Dose: 81 mg Dextrose (Glutose 15) 0 gm PO ONCE PRN; Protocol PRN Reason: Hypoglycemia Protocol Dextrose (Dextrose 50% Inj) 0 ml IV STAT PRN; Protocol PRN Reason: Hypoglycemia Protocol Fluticasone/Vilanterol (Breo Ellipta 100-25 Mcg Inh) 1 puff INH RQD [facility] Furosemide (Lasix) 20 mg IVP BID [facility] Glucagon (Glucagen Diagnostic Kit) 0 mg IM STAT PRN; Protocol PRN Reason: Hypoglycemia Protocol Heparin Sodium (Porcine) (Heparin) 5,000 units SC Q8 [facility] Last Admin: 06/07/18 14:23 Dose: 5,000 units Dextrose (Dextrose 5% In Water 1000 Ml) 1,000 mls @ 0 mls/hr IV .Q0M PRN; P rotocol PRN Reason: Hypoglycemia Protocol Aztreonam 1 gm/ Sodium (Chloride) 100 mls @ 100 mls/hr IVPB Q8 [facility]; Protocol Last Admin: 06/07/18 14:22 Dose: 100 mls/hr Doxycycline Hyclate 100 mg/ (Sodium Chloride) 100 mls @ 100 mls/hr IVPB Q12H [facility]; Protocol Last Admin: 06/07/18 12:22 Dose: 100 mls/hr Insulin Human Regular (Novolin R) 0 unit SC ACHS [facility]; Protocol Last Admin: 06/07/18 12:51 Dose: 8 units Methylprednisolone (Solu-Medrol) 40 mg IVP Q6H [facility] Last Admin: 06/07/18 15:08 Dose: 40 mg Metoprolol Tartrate (Lopressor) 25 mg PO BID [facility] Last Admin: 06/07/18 09:28 Dose: 25 mg Pneumococcal Polyvalent Vaccine (Pneumovax 23 Vaccine) 0.5 ml IM .ONCE ONE Stop: 06/08/18 14:01 Rosuvastatin Calcium (Crestor) 5 mg PO HS [facility] Physical Exam - Head Exam Head Exam: ATRAUMATIC, NORMOCEPHALIC - ENT Exam ENT Exam: Mucous Membranes Moist - Neck Exam Neck exam: Positive for: Normal Inspection - Respiratory Exam Respiratory Exam: Decreased Breath Sounds - Cardiovascular Exam Cardiovascular Exam: REGULAR RHYTHM - GI/Abdominal Exam GI & Abdominal Exam: Normal Bowel Sounds, Soft - Extremities Exam Extremities exam: Positive for: normal inspection Results - Vital Signs Recent Vital Signs: Last Vital Signs Temp 97.5 F L 06/07/18 15:45 Pulse 106 H 06/07/18 15:45 Resp 21 06/07/18 15:45 BP 120/61 06/07/18 15:45 Pulse Ox 95 06/07/18 15:45 - Labs Result Diagrams: 06/07/18 07:23 06/07/18 07:23 Labs: Laboratory Results - last 24 hr 06/06/18 06/06/18 06/07/18 16:06 21:42 06:12 WBC RBC Hgb Hct MCV MCH MCHC RDW Plt Count MPV Neut % (Auto) Lymph % (Auto) [place] % (Auto) Eos % (Auto) Baso % (Auto) Neut # (Auto) Lymph # (Auto) [place] # (Auto) Eos # (Auto) Baso # (Auto) PT INR APTT Sodium Potassium Chloride Carbon Dioxide Anion Gap BUN Creatinine Est GFR ( Amer) Est GFR (Non-Af Amer) POC Glucose (mg/dL) 151 H 221 H 221 H Random Glucose Calcium Phosphorus Magnesium Total Bilirubin AST ALT Alkaline Phosphatase Total Protein Albumin Globulin Albumin/Globulin Ratio 06/07/18 06/07/18 06/07/18 07:23 07:23 07:23 WBC 6.6 RBC 3.92 Hgb 11.6 Hct 35.1 MCV 89.6 MCH 29.7 MCHC 33.1 RDW 14.4 Plt Count 257 MPV 10.0 Neut % (Auto) 69.5 Lymph % (Auto) 18.9 L [place] % (Auto) 9.1 Eos % (Auto) 1.8 Baso % (Auto) 0.7 Neut # (Auto) 4.6 Lymph # (Auto) 1.2 [place] # (Auto) 0.6 Eos # (Auto) 0.1 Baso # (Auto) 0.0 PT 12.7 H INR 1.2 APTT 35 H Sodium 139 Potassium 3.6 Chloride 107 Carbon Dioxide 26 Anion Gap 10 BUN 28 H Creatinine 1.9 H Est GFR ( Amer) 31 Est GFR (Non-Af Amer) 26 POC Glucose (mg/dL) Random Glucose 195 H D Calcium 8.1 L Phosphorus 5.1 H Magnesium 1.6 Total Bilirubin 0.4 AST 27 ALT 38 Alkaline Phosphatase 111 Total Protein 6.4 Albumin 3.0 L Globulin 3.3 Albumin/Globulin Ratio 0.9 L 06/07/18 11:33 WBC RBC Hgb Hct MCV MCH MCHC RDW Plt Count MPV Neut % (Auto) Lymph % (Auto) [place] % (Auto) Eos % (Auto) Baso % (Auto) Neut # (Auto) Lymph # (Auto) [place] # (Auto) Eos # (Auto) Baso # (Auto) PT INR APTT Sodium Potassium Chloride Carbon Dioxide Anion Gap BUN Creatinine Est GFR ( Amer) Est GFR (Non-Af Amer) POC Glucose (mg/dL) 311 H Random Glucose Calcium Phosphorus Magnesium Total Bilirubin AST ALT Alkaline Phosphatase Total Protein Albumin Globulin Albumin/Globulin Ratio Assessment & Plan - Assessment and Plan (Free Text) Assessment: A and P 1. Pleural effusion - Most likely secondary to CHF exacerbation - Chest CT 06/06/18: moderate to large right pleural effusion; opacities in left upper lobe; calcified granuloma and hilar lymphadenopathy likely due to prior granulomatosis or sarcoidosis - Chest x-ray 06/06/18: moderate right and small left pleural effusion; status post median sternotomy; b/l pleural thickening - Continue Duoneb - Continue Lasix - Continue aztreonam 2. CHF exacerbation -Cardio consulted -Follow up echo -Continue medications
--- NOTE | 2018-06-07 18:13 | US ---
Date of service: 06/07/2018 PROCEDURE: Ultrasound of the Kidneys HISTORY: evaluate for renal and postrenal pathology COMPARISON: None available. TECHNIQUE: Sonogram of the kidneys. FINDINGS: RIGHT KIDNEY: Measures: 8.7 x 4.6 x 4.9 cm. No obstructing calculus, hydronephrosis, or renal cyst identified. LEFT KIDNEY: Measures: 9.9 x 4.4 x 4.4 cm. No obstructing calculus, hydronephrosis, or renal cyst identified. OTHER FINDINGS: Limited visualization of under distended urinary bladder appears grossly unremarkable. IMPRESSION: No obstructing calculus, hydronephrosis, or renal cyst identified.
[2018-06-07 18:33] LABS: BODY FLUID TYPE PLEURAL/THORACENTESI
[2018-06-07 19:23] LABS: BF GROSS APPEARANCE CLEAR (CLEAR)
[2018-06-07 19:24] LABS: BODY FLUID MONO/MACROPHAGE 8 % (0-0)
[2018-06-07 21:01] LABS: SQUAMOUS EPITHIAL 13 /hpf (0-5); URINE BACTERIA OCC (<OCC); URINE BILIRUBIN NEGATIVE (NEGATIVE); URINE BLOOD NEGATIVE (NEGATIVE); URINE CLARITY Hazy (Clear); URINE COLOR Yellow (YELLOW); URINE GLUCOSE (UA) NORMAL (Normal); URINE LEUKOCYTE ESTERASE NEG Leu/uL (Negative); URINE PROTEIN 2+ mg/dL (NEGATIVE); URINE UROBILINOGEN NORMAL mg/dL (0.2-1.0)
[2018-06-08] MEDS: Albuterol-Ipratrop 3 mg / 0.5 (3 ml) UD INH SCH ×6 (00:45→20:54)
[2018-06-08] MEDS: MethylPREDNISolone 40 mg Vial IVP SCH ×4 (02:45→19:57)
[2018-06-08] MEDS: Aztreonam 1 GM in Sodium Chloride 0.9% 100 ML IVPB SCH ×3 (06:09→21:19)
--- NOTE | 2018-06-08 06:55 | CP.PCM.PN ---
<Kathy Rivera - Last Filed: 06/08/18 16:55> Subjective - Date & Time of Evaluation Date of Evaluation: 06/08/18 Time of Evaluation: 09:30 - Subjective Subjective: Patient examined at bedside. Per nurse, pt has had high sugar readings, and pt was agitated. Upon questioning, pt reports she is upset w/ care overnight, complains that assistance is not provided in a timely manner when she pushes the buzzer and her neighbor has been assisting her in walking to the bathroom. She reports improvement in breathing s/p thoracentesis. Denies chest pain, productive cough, nausea. Pt reports no BM for 4 days Objective - Vital Signs/Intake and Output Vital Signs (last 24 hours): Temp Pulse Resp BP Pulse Ox 97.9 F 111 H 20 121/67 98 06/07/18 23:35 06/07/18 23:35 06/07/18 23:35 06/07/18 23:35 06/07/18 23:35 - Medications Medications: Current Medications Acetaminophen (Tylenol 325mg Tab) 650 mg PO Q6 PRN PRN Reason: Fever >100.4 F Acetaminophen (Tylenol 325mg Tab) 650 mg PO Q6 PRN PRN Reason: Pain, moderate (4-7) Last Admin: 06/06/18 00:55 Dose: 650 mg Albuterol/Ipratropium (Duoneb 3 Mg/0.5 Mg (3 Ml) Ud) 3 ml INH RQ4 [facility] Last Admin: 06/08/18 04:10 Dose: 3 ml Aspirin (Ecotrin) 81 mg PO DAILY [facility] Last Admin: 06/07/18 09:29 Dose: 81 mg Dextrose (Glutose 15) 0 gm PO ONCE PRN; Protocol PRN Reason: Hypoglycemia Protocol Dextrose (Dextrose 50% Inj) 0 ml IV STAT PRN; Protocol PRN Reason: Hypoglycemia Protocol Fluticasone/Vilanterol (Breo Ellipta 100-25 Mcg Inh) 1 puff INH RQD [facility] Furosemide (Lasix) 20 mg IVP BID [facility] Last Admin: 06/07/18 17:49 Dose: 20 mg Glucagon (Glucagen Diagnostic Kit) 0 mg IM STAT PRN; Protocol PRN Reason: Hypoglycemia Protocol Heparin Sodium (Porcine) (Heparin) 5,000 units SC Q8 [facility] Last Admin: 06/08/18 06:09 Dose: 5,000 units Dextrose (Dextrose 5% In Water 1000 Ml) 1,000 mls @ 0 mls/hr IV .Q0M PRN; Protocol PRN Reason: Hypoglycemia Protocol Aztreonam 1 gm/ Sodium (Chloride) 100 mls @ 100 mls/hr IVPB Q8 [facility]; Protocol Last Admin: 06/08/18 06:09 Dose: 100 mls/hr Doxycycline Hyclate 100 mg/ (Sodium Chloride) 100 mls @ 100 mls/hr IVPB Q12H [facility]; Protocol Last Admin: 06/08/18 01:30 Dose: 100 mls/hr Insulin Human Regular (Novolin R) 0 unit SC ACHS [facility]; Protocol Last Admin: 06/07/18 22:28 Dose: 3 units Methylprednisolone (Solu-Medrol) 40 mg IVP Q6H [facility] Last Admin: 06/08/18 02:45 Dose: 40 mg Metoprolol Tartrate (Lopressor) 25 mg PO BID [facility] Last Admin: 06/07/18 17:49 Dose: 25 mg Pneumococcal Polyvalent Vaccine (Pneumovax 23 Vaccine) 0.5 ml IM .ONCE ONE Stop: 06/08/18 14:01 Rosuvastatin Calcium (Crestor) 5 mg PO HS [facility] Last Admin: 06/07/18 22:36 Dose: 5 mg - Labs Labs: 06/07/18 07:23 06/07/18 07:23 PT 12.7 SECONDS (9.7-12.2) H 06/07/18 07:23 INR 1.2 06/07/18 07:23 APTT 35 SECONDS (21-34) H 06/07/18 07:23 - Constitutional Appears: Non-toxic, No Acute Distress - Head Exam Head Exam: ATRAUMATIC, NORMAL INSPECTION, NORMOCEPHALIC - Eye Exam Eye Exam: EOMI, Normal appearance - ENT Exam ENT Exam: Mucous Membranes Moist, Normal Exam - Neck Exam Neck Exam: Normal Inspection - Respiratory Exam Respiratory Exam: Accessory Muscle Use, Rales, Rhonchi, Respiratory Distress - Cardiovascular Exam Cardiovascular Exam: Tachycardia, REGULAR RHYTHM - GI/Abdominal Exam GI & Abdominal Exam: Soft, Normal Bowel Sounds. absent: Tenderness - Extremities Exam Extremities Exam: Normal Inspection. absent: Calf Tenderness, Pedal Edema - Back Exam Additional comments: right thoracentesis site, C/D/I - Neurological Exam Neurological Exam: Alert, Awake, Oriented x3 - Psychiatric Exam Psychiatric exam: Normal Affect, Normal Mood - Skin Skin Exam: Dry, Intact, Normal Color, Warm Assessment and Plan - Assessment and Plan (Free Text) Assessment: 78 year old female with PMHx of CAD (CABG 2014), HTN, T2DM, COPD, and osteoporosis, presenting for evaluation of SOB, and admitted for treatment of an acute CHF exacerbation. Plan: CHF exacerbation, acute on chronic Echo 2015: Grade IV restrictive diastolic dysfunction and systolic dysfunction echo(06/2018): EF 20%, PFO, mod MR, calcified AV, LA dilation Troponins negative x3, BNP is 7020 on admission Lasix 20mg IVP BID Lopressor 25mg PO BID Hold CARMEL/ARb pending improved renal function ASA 81mg Solu-medrol 40mg IV Q6 Added spironolactone 25mg po QD Cardiology, Dr. Huerta, consulted. Recommendations appreciated. Suspected CAP CXR: Diffuse increased interstitial airspace opacities suggestive for edema/infiltrate, superimposed confluent consolidative changes in left mid to l ower lung, and right lung apex and base CT chest:Markedly limited study degraded by motion artifact. The evaluation is also limited without IV contrast administration. Round consolidation versus loca lized pleural effusion noted at the medial aspect of the right upper chest. Reticular opacities and ground-glass opacities are noted in the upper lobes larger on the left. Moderate to large right pleural effusion. Calcified granuloma and calcified mediastinal and hilar lymphadenopathy are again noted. Findings likely due to prior granulomatosis disease or sarcoidosis. Moderate cardiomegaly. F/U repeat chest xray AP/Lat No leukocytosis/fevers Vapotherm PRN, not tolerating BiPAP Tylenol prn fever Aztreonam and Doxy Duonebs q4h Breo-Ellipta Pulmonology, Dr. High Suspected UTI UA contaminated F/U urine culture SCOUT Creatinine is 1.7 on admission, worsening, 2.6 today Consider adding CARMEL pending Cr Nephro, Dr. Rader DM2 Accucheck ACHS ISS medium ACHS Novolin 7 ACTID, elevated 2/2 IVCCS Hypoglycemia protocol Hx of HTN Continue to monitor, add CARMEL if Cr stable, otherwise maybe Hydralazine PPX PT/OT eval GI ppx: protonix 40 mg PO daily, 2/2 IVCCS VTE ppx: Heparin 5000 sc q8, SCDs CCD/HHD Discussed w/ Dr. Alonzo -Kathy Rivera, PGY-1 <Roscoe Alonzo H - Last Filed: 06/08/18 17:01> Objective - Vital Signs/Intake and Output Vital Signs (last 24 hours): Temp Pulse Resp BP Pulse Ox 98.2 F 100 H 20 144/69 99 06/08/18 16:39 06/08/18 16:39 06/08/18 16:39 06/08/18 16:39 06/08/18 16:39 Intake and Output: 06/08/18 06/08/18 06:59 18:59 Intake Total 560 Balance 560 - Medications Medications: Current Medications Acetaminophen (Tylenol 325mg Tab) 650 mg PO Q6 PRN PRN Reason: Fever >100.4 F Acetaminophen (Tylenol 325mg Tab) 650 mg PO Q6 PRN PRN Reason: Pain, moderate (4-7) Last Admin: 06/06/18 00:55 Dose: 650 mg Albuterol/Ipratropium (Duoneb 3 Mg/0.5 Mg (3 Ml) Ud) 3 ml INH RQ4 [facility] Last Admin: 06/08/18 11:40 Dose: 3 ml Aspirin (Ecotrin) 81 mg PO DAILY [facility] Last Admin: 06/08/18 09:24 Dose: 81 mg Calcium Acetate (Phoslo) 667 mg PO TIDCC [facility] Dextrose (Glutose 15) 0 gm PO ONCE PRN; Protocol PRN Reason: Hypoglycemia Protocol Dextrose (Dextrose 50% Inj) 0 ml IV STAT PRN; Protocol PRN Reason: Hypoglycemia Protocol Fluticasone/Vilanterol (Breo Ellipta 100-25 Mcg Inh) 1 puff INH RQD [facility] Last Admin: 06/08/18 08:20 Dose: 1 puff Furosemide (Lasix) 20 mg IVP BID [facility] Last Admin: 06/08/18 09:24 Dose: 20 mg Glucagon (Glucagen Diagnostic Kit) 0 mg IM STAT PRN; Protocol PRN Reason: Hypoglycemia Protocol Heparin Sodium (Porcine) (Heparin) 5,000 units SC Q8 [facility] Last Admin: 06/08/18 14:08 Dose: 5,000 units Dextrose (Dextrose 5% In Water 1000 Ml) 1,000 mls @ 0 mls/hr IV .Q0M PRN; Protocol PRN Reason: Hypoglycemia Protocol Aztreonam 1 gm/ Sodium (Chloride) 100 mls @ 100 mls/hr IVPB Q8 [facility]; Protocol Last Admin: 06/08/18 14:07 Dose: 100 mls/hr Doxycycline Hyclate 100 mg/ (Sodium Chloride) 100 mls @ 100 mls/hr IVPB Q12H [facility]; Protocol Last Admin: 06/08/18 12:21 Dose: 100 mls/hr Insulin Human Isoph/Insulin Regular (Novolin 70/30 (70/30 Units/Ml) 10 Ml) 7 units SC ACTID [facility] Insulin Human Regular (Novolin R) 0 unit SC ACHS [facility]; Protocol Last Admin: 06/08/18 12:20 Dose: 12 units Methylprednisolone (Solu-Medrol) 40 mg IVP Q6H [facility] Last Admin: 06/08/18 14:07 Dose: 40 mg Metoprolol Tartrate (Lopressor) 25 mg PO BID [facility] Last Admin: 06/08/18 09:23 Dose: 25 mg Pantoprazole Sodium (Protonix Ec Tab) 40 mg PO DAILY [facility] Rosuvastatin Calcium (Crestor) 5 mg PO HS [facility] Last Admin: 06/07/18 22:36 Dose: 5 mg Spironolactone (Aldactone) 25 mg PO DAILY [facility] Last Admin: 06/08/18 14:07 Dose: 25 mg - Labs Labs: 06/08/18 08:36 06/08/18 08:36 PT 12.7 SECONDS (9.7-12.2) H 06/07/18 07:23 INR 1.2 06/07/18 07:23 APTT 35 SECONDS (21-34) H 06/07/18 07:23 Attending/Attestation - Attestation I have personally seen and examined this patient.: Yes I have fully participated in the care of the patient.: Yes I have reviewed all pertinent clinical information, including history, physical exam and plan: Yes Notes (Text): 06/08/18 16:58 Medical attending: Patient was seen and examined by me. Agree with the above note by the resident The patient was not in any acute distress at rest. She was out of bed in a chair when we saw her - however per translation she explained that she was having a lot of shortness of breath with exertion. The patient as mentioned previously had a thoracentesis - we are repeating a standing PA/Lateral film to assess. She remains on the IV lasix for the time being as well. She has a low EF on the echo. Currently on BB, later should be on CARMEL/ARB and aldactone Roscoe Alonzo
[2018-06-08] MEDS: Fluticasone-Vilanterol 100/25mcg Diskus INH SCH (08:20)
[2018-06-08] MEDS: (Novolin R) Insulin Human Regular 100 units/ml vial SC SCH ×4 (08:30→21:42)
[2018-06-08 08:52] LABS: BASO % 0.2 % (0.0-2.0); LYMPH # 0.3 K/uL (1.0-4.3); LYMPH % 4.1 % (20.0-40.0); MEAN CELL VOLUME 90.3 fL (81.0-99.0); MEAN CORPUSCULAR HEMOGLOBIN 29.7 pg (27.0-31.0); MEAN CORPUSCULAR HGB CONC 32.9 g/dL (33.0-37.0); MEAN PLATELET VOLUME 10.3 fL (7.2-11.7); MONO # 0.2 K/uL (0.0-0.8); MONO % 3.1 % (0.0-10.0); NEUT # 7.3 K/uL (1.8-7.0); NEUT % 92.6 % (50.0-75.0); PLATELET COUNT 276 K/uL (130-400); RBC 4.03 Mil/uL (3.80-5.20); RED CELL DISTRIBUTION WIDTH 14.9 % (11.5-14.5); WHITE BLOOD COUNT 7.9 K/uL (4.8-10.8)
--- NOTE | 2018-06-08 09:20 | CP.PCM.PN ---
<Jaida Pedersen - Last Filed: 06/08/18 13:33> Subjective - Date & Time of Evaluation Date of Evaluation: 06/08/18 Time of Evaluation: 09:00 - Subjective Subjective: Nephrology progress note for Dr. Rader's service Patient with no acute events. Patient states she doesn't want to use bipap. Admits to SOB, denies cp. Admits to wheezing, no cough. No fever or chills. Objective - Vital Signs/Intake and Output Vital Signs (last 24 hours): Temp Pulse Resp BP Pulse Ox 97.8 F 114 H 18 167/84 H 94 L 06/08/18 07:45 06/08/18 09:09 06/08/18 07:45 06/08/18 07:45 06/08/18 07:45 - Medications Medications: Current Medications Acetaminophen (Tylenol 325mg Tab) 650 mg PO Q6 PRN PRN Reason: Fever >100.4 F Acetaminophen (Tylenol 325mg Tab) 650 mg PO Q6 PRN PRN Reason: Pain, moderate (4-7) Last Admin: 06/06/18 00:55 Dose: 650 mg Albuterol/Ipratropium (Duoneb 3 Mg/0.5 Mg (3 Ml) Ud) 3 ml INH RQ4 [facility] Last Admin: 06/08/18 08:20 Dose: 3 ml Aspirin (Ecotrin) 81 mg PO DAILY [facility] Last Admin: 06/07/18 09:29 Dose: 81 mg Dextrose (Glutose 15) 0 gm PO ONCE PRN; Protocol PRN Reason: Hypoglycemia Protocol Dextrose (Dextrose 50% Inj) 0 ml IV STAT PRN; Protocol PRN Reason: Hypoglycemia Protocol Fluticasone/Vilanterol (Breo Ellipta 100-25 Mcg Inh) 1 puff INH RQD [facility] Last Admin: 06/08/18 08:20 Dose: 1 puff Furosemide (Lasix) 20 mg IVP BID [facility] Last Admin: 06/07/18 17:49 Dose: 20 mg Glucagon (Glucagen Diagnostic Kit) 0 mg IM STAT PRN; Protocol PRN Reason: Hypoglycemia Protocol Heparin Sodium (Porcine) (Heparin) 5,000 units SC Q8 [facility] Last Admin: 06/08/18 06:09 Dose: 5,000 units Dextrose (Dextrose 5% In Water 1000 Ml) 1,000 mls @ 0 mls/hr IV .Q0M PRN; Protocol PRN Reason: Hypoglycemia Protocol Aztreonam 1 gm/ Sodium (Chloride) 100 mls @ 100 mls/hr IVPB Q8 [facility]; Protocol Last Admin: 06/08/18 06:09 Dose: 100 mls/hr Doxycycline Hyclate 100 mg/ (Sodium Chloride) 100 mls @ 100 mls/hr IVPB Q12H [facility]; Protocol Last Admin: 06/08/18 01:30 Dose: 100 mls/hr Insulin Human Regular (Novolin R) 0 unit SC ACHS [facility]; Protocol Last Admin: 06/08/18 08:30 Dose: 12 units Methylprednisolone (Solu-Medrol) 40 mg IVP Q6H [facility] Last Admin: 06/08/18 02:45 Dose: 40 mg Metoprolol Tartrate (Lopressor) 25 mg PO BID [facility] Last Admin: 06/07/18 17:49 Dose: 25 mg Pneumococcal Polyvalent Vaccine (Pneumovax 23 Vaccine) 0.5 ml IM .ONCE ONE Stop: 06/08/18 14:01 Rosuvastatin Calcium (Crestor) 5 mg PO HS [facility] Last Admin: 06/07/18 22:36 Dose: 5 mg - Labs Labs: 06/08/18 08:36 06/07/18 07:23 PT 12.7 SECONDS (9.7-12.2) H 06/07/18 07:23 INR 1.2 06/07/18 07:23 APTT 35 SECONDS (21-34) H 06/07/18 07:23 - Constitutional Appears: No Acute Distress, Chronically Ill - Head Exam Head Exam: ATRAUMATIC, NORMAL INSPECTION, NORMOCEPHALIC - Eye Exam Eye Exam: Normal appearance - ENT Exam ENT Exam: Mucous Membranes Dry - Neck Exam Neck Exam: Normal Inspection - Respiratory Exam Respiratory Exam: Wheezes, NORMAL BREATHING PATTERN. absent: Decreased Breath Sounds, Rales, Rhonchi, Respiratory Distress, Stridor - Cardiovascular Exam Cardiovascular Exam: Gallop, RRR, Rubs, +S1, +S2, Murmur - GI/Abdominal Exam GI & Abdominal Exam: Soft, Normal Bowel Sounds. absent: Distended, Firm, Guarding, Rigid, Tenderness, Rebound - Extremities Exam Extremities Exam: Normal Inspection. absent: Pedal Edema - Back Exam Back Exam: NORMAL INSPECTION - Neurological Exam Neurological Exam: Alert, Awake, Oriented x3 - Psychiatric Exam Psychiatric exam: Normal Affect, Normal Mood - Skin Skin Exam: Dry, Warm Assessment and Plan (1) Acute kidney injury superimposed on chronic kidney disease Assessment & Plan: Likely pre-renal from diuretics Will obtain renal BMP 320 mg proteinuria- > will order kappa/lambda free and ratio, will need to be repeated as outpatient ACEI on hold for now Renal U/S with no obstruction, hydronephrosis and cyst. Status: Acute (2) Acute exacerbation of CHF (congestive heart failure) Assessment & Plan: With pleural effussions, s/p thoracenthesis ~250 cc of fluid Patient now appears more euvolemic with bronchospasm On lasix 20 mg ivp bid, metoprol 25 mg bid Continue with COPD treatments Status: Acute (3) CAD (coronary artery disease) Status: Acute (4) HTN (hypertension) Assessment & Plan: Patient had an episode of uncontrolled BP, however BP is now stable in SBP of 130s. Status: Acute (5) COPD (chronic obstructive pulmonary disease) Assessment & Plan: Continue with bronchodilators and prednisone as per primary Status: Acute (6) Chronic kidney disease-mineral and bone disorder Assessment & Plan: Phoslo added for hyperphosphatemia Will add PTH intact for next am will add total vitamin D3 level Status: Acute <Naun Rader - Last Filed: 06/09/18 06:40> Objective - Vital Signs/Intake and Output Vital Signs (last 24 hours): Temp Pulse Resp BP Pulse Ox 97.5 F L 104 H 20 145/74 97 06/09/18 01:00 06/09/18 01:00 06/09/18 01:00 06/09/18 01:00 06/09/18 01:00 Intake and Output: 06/08/18 06/09/18 18:59 06:59 Intake Total 560 400 Balance 560 400 - Medications Medications: Current Medications Acetaminophen (Tylenol 325mg Tab) 650 mg PO Q6 PRN PRN Reason: Fever >100.4 F Acetaminophen (Tylenol 325mg Tab) 650 mg PO Q6 PRN PRN Reason: Pain, moderate (4-7) Last Admin: 06/06/18 00:55 Dose: 650 mg Albuterol/Ipratropium (Duoneb 3 Mg/0.5 Mg (3 Ml) Ud) 3 ml INH RQ4 [facility] Last Admin: 06/09/18 03:25 Dose: 3 ml Aspirin (Ecotrin) 81 mg PO DAILY [facility] Last Admin: 06/08/18 09:24 Dose: 81 mg Calcium Acetate (Phoslo) 667 mg PO TIDCC [facility] Last Admin: 06/08/18 17:23 Dose: 667 mg Dextrose (Glutose 15) 0 gm PO ONCE PRN; Protocol PRN Reason: Hypoglycemia Protocol Dextrose (Dextrose 50% Inj) 0 ml IV STAT PRN; Protocol PRN Reason: Hypoglycemia Protocol Fluticasone/Vilanterol (Breo Ellipta 100-25 Mcg Inh) 1 puff INH RQD [facility] Last Admin: 06/08/18 08:20 Dose: 1 puff Furosemide (Lasix) 20 mg IVP BID [facility] Last Admin: 06/08/18 17:23 Dose: 20 mg Glucagon (Glucagen Diagnostic Kit) 0 mg IM STAT PRN; Protocol PRN Reason: Hypoglycemia Protocol Heparin Sodium (Porcine) (Heparin) 5,000 units SC Q8 [facility] Last Admin: 06/09/18 06:12 Dose: 5,000 units Dextrose (Dextrose 5% In Water 1000 Ml) 1,000 mls @ 0 mls/hr IV .Q0M PRN; P rotocol PRN Reason: Hypoglycemia Protocol Aztreonam 1 gm/ Sodium (Chloride) 100 mls @ 100 mls/hr IVPB Q8 [facility]; Protocol Last Admin: 06/09/18 06:10 Dose: 100 mls/hr Doxycycline Hyclate 100 mg/ (Sodium Chloride) 100 mls @ 100 mls/hr IVPB Q12H [facility]; Protocol Last Admin: 06/09/18 00:54 Dose: 100 mls/hr Insulin Human Isoph/Insulin Regular (Novolin 70/30 (70/30 Units/Ml) 10 Ml) 7 units SC ACTID [facility] Last Admin: 06/08/18 17:24 Dose: 7 units Insulin Human Regular (Novolin R) 0 unit SC ACHS [facility]; Protocol Last Admin: 06/08/18 21:42 Dose: Not Given Methylprednisolone (Solu-Medrol) 40 mg IVP Q6H [facility] Last Admin: 06/09/18 01:01 Dose: 40 mg Metoprolol Tartrate (Lopressor) 25 mg PO BID [facility] Last Admin: 06/08/18 17:23 Dose: 25 mg Pantoprazole Sodium (Protonix Ec Tab) 40 mg PO DAILY [facility] Last Admin: 06/08/18 17:23 Dose: 40 mg Rosuvastatin Calcium (Crestor) 5 mg PO HS [facility] Last Admin: 06/08/18 21:19 Dose: 5 mg Spironolactone (Aldactone) 25 mg PO DAILY [facility] Last Admin: 06/08/18 14:07 Dose: 25 mg - Labs Labs: 06/08/18 08:36 06/08/18 08:36 PT 12.7 SECONDS (9.7-12.2) H 06/07/18 07:23 INR 1.2 06/07/18 07:23 APTT 35 SECONDS (21-34) H 06/07/18 07:23 Attending/Attestation - Attestation I have personally seen and examined this patient.: Yes I have fully participated in the care of the patient.: Yes I have reviewed all pertinent clinical information, including history, physical exam and plan: Yes Notes (Text): Patient seen and examined; I agree with the resident's note as above with the following additions/edits: 78 yo F with history of htn, dm, CAD s/p CABG, CHF w/ systolic dysfunction, and CKD, admitted with dyspnea, nephrology following for advanced renal insufficiency; Labs available late today, not resulted at time of encounter; showing SCOUT with serum creatinine increased from 1.9 -> 2.5; likely pre-renal in the setting of aggressive diuresis; volume status and dyspnea improved; also, dyspnea appears more consistent with PNA and COPD exacerbation rather than CHF exacerbation (severe systolic dysfunction noted); will hold diuretics for now (including aldactone) and observe; Only mildly increased proteinuria (320 mg/g) on random protein/creat ratio; sending workup for paraproteinemia; should have repeat proteinuria assessment as outpatient once renal function stabilized; BP controlled; continue B-blockers; holding diuretics as above; continue to hold CARMEL inhibitor/ARB; Should continue to dose antibiotics for CrCl < 30 ml/min;
[2018-06-08 12:14] LABS: LYMPHOCYTE 5 % (20-40); MONOCYTE 2 % (0-10); NEUTROPHIL 93 % (50-75); PLATELET ESTIMATE NORMAL (NORMAL); TOTAL CELLS COUNTED 100
[2018-06-08 13:51] LABS: CALCIUM 8.5 mg/dl (8.6-10.4)
[2018-06-08] MEDS ORDERED: Pneumococcal 23-Valent Vaccine IM ONE (14:00)
--- NOTE | 2018-06-08 14:01 | US ---
PROCEDURE: Date of procedure: Procedure: 1. Ultrasound-guided Right thoracentesis, CPT 39005 Medications: 5cc 1% Lidocaine HISTORY: Right pleural effusion, shortness of breath TECHNIQUE: Following informed consent ,the Patients' right chest was marked. Procedure time-out was called, and the patient was placed in the sitting position and limited ultrasound showed a small right effusion. The patient's right back was prepped and draped in the usual sterile fashion. After the skin was anesthetized with lidocaine, a drainage catheter was advanced under ultrasound guidance into the pleural space. Ultrasound-guided thoracentesis was performed. A total of 560 cubic centimeters of straw-colored fluid removed without complication. A Xeroform dressing was applied. IMPRESSION: Ultrasound guided Right thoracentesis. There were no immediate complications.
--- NOTE | 2018-06-08 14:09 | CARD ---
APPROVED REPORT Date of service: 06/06/2018 EKG Measurement Heart [id number] MS [id number] [id number] <Conclusion> Sinus tachycardia with occasional premature ventricular complexes Possible Left atrial enlargement Poor R wave progression Prolonged QT Abnormal ECG
--- NOTE | 2018-06-08 14:11 | CARD ---
APPROVED REPORT Date of service: 06/06/2018 EKG Measurement Heart [id number] SD 156P32 [id number] <Conclusion> Sinus tachycardia with occasional premature ventricular complexes Possible Left atrial enlargement Rightward axis Poor R wave progression ST & T wave abnormality: Nonspecific Prolonged QT Abnormal ECG
--- NOTE | 2018-06-08 14:12 | CARD ---
APPROVED REPORT Date of service: 06/05/2018 EKG Measurement Heart [id number] CT 124P76 [id number] <Conclusion> Sinus tachycardia Possible Left atrial enlargement Rightward axis Anterior infarct, age undetermined cannot be excluded. Abnormal ECG
--- NOTE | 2018-06-08 15:10 | RAD ---
Date of service: 06/08/2018 HISTORY: s/p thoracentesis for pleural effusion COMPARISON: Portable chest 06/06/2018. TECHNIQUE: Chest PA and lateral FINDINGS: LUNGS: Aeration at the mid to inferior right lung zone appears significantly improved with trace atelectasis or infiltrate at the mid left lung zone laterally. Underlying extensive pulmonary disease is reiterated. Rounded densities are again seen the right upper greater than left upper lobes, best appreciated prior chest CT 06/06/2018. PLEURA: No significant pleural effusion identified. No pneumothorax apparent. CARDIOVASCULAR: Calcific atherosclerotic changes are seen related to the thoracic aorta. Partially calcified lymph nodes or granulomata again seen the bilateral hilar regions, left greater than right. Cardiomegaly reiterated. Post CABG changes again evident. No pulmonary vascular congestion. OSSEOUS STRUCTURES: No significant abnormalities. VISUALIZED UPPER ABDOMEN: Normal. OTHER FINDINGS: None. IMPRESSION: No pneumothorax identified. Improving aeration right lower lobe with underlying interstitial pulmonary changes reiterated bilaterally. Limited atelectasis or infiltrate difficult exclude the periphery of the mid left lung zone laterally. Nodular changes again seen at the bilateral upper lobes. Stable cardiomegaly.
--- NOTE | 2018-06-08 15:34 | CP.PCM.PN ---
<Dianna Xavier - Last Filed: 06/08/18 17:07> Subjective - Date & Time of Evaluation Date of Evaluation: 06/08/18 Time of Evaluation: 08:00 - Subjective Subjective: Cardiology Progress Note for Dr. Huerta: Patient was seen and examined at bedside in the AM. Patient states her breathing has improved. She states she will not use the BiPAP machine as the mask is small and bothers her eyes. She denies other complaints at this time. Objective - Vital Signs/Intake and Output Vital Signs (last 24 hours): Temp Pulse Resp BP Pulse Ox 97.8 F 114 H 18 136/73 94 L 06/08/18 07:45 06/08/18 09:09 06/08/18 07:45 06/08/18 09:24 06/08/18 07:45 - Medications Medications: Current Medications Acetaminophen (Tylenol 325mg Tab) 650 mg PO Q6 PRN PRN Reason: Fever >100.4 F Acetaminophen (Tylenol 325mg Tab) 650 mg PO Q6 PRN PRN Reason: Pain, moderate (4-7) Last Admin: 06/06/18 00:55 Dose: 650 mg Albuterol/Ipratropium (Duoneb 3 Mg/0.5 Mg (3 Ml) Ud) 3 ml INH RQ4 [facility] Last Admin: 06/08/18 11:40 Dose: 3 ml Aspirin (Ecotrin) 81 mg PO DAILY [facility] Last Admin: 06/08/18 09:24 Dose: 81 mg Calcium Acetate (Phoslo) 667 mg PO TIDCC [facility] Dextrose (Glutose 15) 0 gm PO ONCE PRN; Protocol PRN Reason: Hypoglycemia Protocol Dextrose (Dextrose 50% Inj) 0 ml IV STAT PRN; Protocol PRN Reason: Hypoglycemia Protocol Fluticasone/Vilanterol (Breo Ellipta 100-25 Mcg Inh) 1 puff INH RQD [facility] Last Admin: 06/08/18 08:20 Dose: 1 puff Furosemide (Lasix) 20 mg IVP BID [facility] Last Admin: 06/08/18 09:24 Dose: 20 mg Glucagon (Glucagen Diagnostic Kit) 0 mg IM STAT PRN; Protocol PRN Reason: Hypoglycemia Protocol Heparin Sodium (Porcine) (Heparin) 5,000 units SC Q8 [facility] Last Admin: 06/08/18 14:08 Dose: 5,000 units Dextrose (Dextrose 5% In Water 1000 Ml) 1,000 mls @ 0 mls/hr IV .Q0M PRN; Protocol PRN Reason: Hypoglycemia Protocol Aztreonam 1 gm/ Sodium (Chloride) 100 mls @ 100 mls/hr IVPB Q8 [facility]; Protocol Last Admin: 06/08/18 14:07 Dose: 100 mls/hr Doxycycline Hyclate 100 mg/ (Sodium Chloride) 100 mls @ 100 mls/hr IVPB Q12H [facility]; Protocol Last Admin: 06/08/18 12:21 Dose: 100 mls/hr Insulin Human Isoph/Insulin Regular (Novolin 70/30 (70/30 Units/Ml) 10 Ml) 7 units SC ACTID [facility] Insulin Human Regular (Novolin R) 0 unit SC ACHS [facility]; Protocol Last Admin: 06/08/18 12:20 Dose: 12 units Methylprednisolone (Solu-Medrol) 40 mg IVP Q6H [facility] Last Admin: 06/08/18 14:07 Dose: 40 mg Metoprolol Tartrate (Lopressor) 25 mg PO BID [facility] Last Admin: 06/08/18 09:23 Dose: 25 mg Rosuvastatin Calcium (Crestor) 5 mg PO HS [facility] Last Admin: 06/07/18 22:36 Dose: 5 mg Spironolactone (Aldactone) 25 mg PO DAILY [facility] Last Admin: 06/08/18 14:07 Dose: 25 mg - Labs Labs: 06/08/18 08:36 06/08/18 08:36 PT 12.7 SECONDS (9.7-12.2) H 06/07/18 07:23 INR 1.2 06/07/18 07:23 APTT 35 SECONDS (21-34) H 06/07/18 07:23 - Constitutional Appears: Chronically Ill - Head Exam Head Exam: ATRAUMATIC, NORMAL INSPECTION - Eye Exam Eye Exam: EOMI, Normal appearance - ENT Exam ENT Exam: Mucous Membranes Moist - Respiratory Exam Respiratory Exam: Rhonchi, NORMAL BREATHING PATTERN - Cardiovascular Exam Cardiovascular Exam: Tachycardia, +S1, +S2 - GI/Abdominal Exam GI & Abdominal Exam: Soft, Normal Bowel Sounds. absent: Tenderness - Neurological Exam Neurological Exam: Alert, Awake, Oriented x3 - Psychiatric Exam Psychiatric exam: Anxious Assessment and Plan - Assessment and Plan (Free Text) Assessment: CHF exacerbation, acute on chronic - Patient is s/p CABAG 2015 - ECHO 2015: Grade IV restrictive diastolic dysfunction and systolic dysfunction - Troponins negative x3, BNP is 7020 on admission - ECHO (06/06/18): Reviewed with Dr. Huerta- Systolic CHF; Pleural Effusion; EF 20% - Lipid Panel: Total Cholesterol 171; LDL 114; HDL 39; Triglycerides 74 - Medications: * Lasix 20mg IVP BID * Lopressor 25mg PO BID * Spironolactone 25mg po daily * Hold CARMEL/ARb pending improved renal function * Aspirin 81mg daily * Crestor 5mg po hs Pleural Effusion - possibly secondary to CHF exacerbation - Chest CT: Round consolidation versus localized pleural effusion noted at the medial aspect of the right upper chest. Reticular opacities and ground-glass opacities are noted in the upper lobes larger on the left. Moderate to large right pleural effusion. Calcified granuloma and calcified mediastinal and hilar lymphadenopathy are again noted. Findings likely due to prior granulomatosis disease or sarcoidosis. Moderate cardiomegaly. - Pulm Consult: Dr. High --> help appreciated - Patient placed on BiPAP - s/p thoracentesis - removed 250cc of straw colored fluid Continue medical management. No further cardiac intervention at this time. Case discussed with Dr. Bradley Xavier PGY-2 <Jamaal Huerta - Last Filed: 06/08/18 22:22> Objective - Vital Signs/Intake and Output Vital Signs (last 24 hours): Temp Pulse Resp BP Pulse Ox 97.8 F 106 H 20 146/83 96 06/08/18 20:04 06/08/18 20:25 06/08/18 20:04 06/08/18 20:04 06/08/18 20:04 Intake and Output: 06/08/18 06/09/18 18:59 06:59 Intake Total 560 Balance 560 - Medications Medications: Current Medications Acetaminophen (Tylenol 325mg Tab) 650 mg PO Q6 PRN PRN Reason: Fever >100.4 F Acetaminophen (Tylenol 325mg Tab) 650 mg PO Q6 PRN PRN Reason: Pain, moderate (4-7) Last Admin: 06/06/18 00:55 Dose: 650 mg Albuterol/Ipratropium (Duoneb 3 Mg/0.5 Mg (3 Ml) Ud) 3 ml INH RQ4 [facility] Last Admin: 06/08/18 20:54 Dose: 3 ml Aspirin (Ecotrin) 81 mg PO DAILY [facility] Last Admin: 06/08/18 09:24 Dose: 81 mg Calcium Acetate (Phoslo) 667 mg PO TIDCC [facility] Last Admin: 06/08/18 17:23 Dose: 667 mg Dextrose (Glutose 15) 0 gm PO ONCE PRN; Protocol PRN Reason: Hypoglycemia Protocol Dextrose (Dextrose 50% Inj) 0 ml IV STAT PRN; Protocol PRN Reason: Hypoglycemia Protocol Fluticasone/Vilanterol (Breo Ellipta 100-25 Mcg Inh) 1 puff INH RQD [facility] Last Admin: 06/08/18 08:20 Dose: 1 puff Furosemide (Lasix) 20 mg IVP BID [facility] Last Admin: 06/08/18 17:23 Dose: 20 mg Glucagon (Glucagen Diagnostic Kit) 0 mg IM STAT PRN; Protocol PRN Reason: Hypoglycemia Protocol Heparin Sodium (Porcine) (Heparin) 5,000 units SC Q8 [facility] Last Admin: 06/08/18 21:19 Dose: 5,000 units Dextrose (Dextrose 5% In Water 1000 Ml) 1,000 mls @ 0 mls/hr IV .Q0M PRN; Protocol PRN Reason: Hypoglycemia Protocol Aztreonam 1 gm/ Sodium (Chloride) 100 mls @ 100 mls/hr IVPB Q8 [facility]; Protocol Last Admin: 06/08/18 21:19 Dose: 100 mls/hr Doxycycline Hyclate 100 mg/ (Sodium Chloride) 100 mls @ 100 mls/hr IVPB Q12H [facility]; Protocol Last Admin: 06/08/18 12:21 Dose: 100 mls/hr Insulin Human Isoph/Insulin Regular (Novolin 70/30 (70/30 Units/Ml) 10 Ml) 7 units SC ACTID [facility] Last Admin: 06/08/18 17:24 Dose: 7 units Insulin Human Regular (Novolin R) 0 unit SC ACHS [facility]; Protocol Last Admin: 06/08/18 21:42 Dose: Not Given Methylprednisolone (Solu-Medrol) 40 mg IVP Q6H [facility] Last Admin: 06/08/18 19:57 Dose: 40 mg Metoprolol Tartrate (Lopressor) 25 mg PO BID [facility] Last Admin: 06/08/18 17:23 Dose: 25 mg Pantoprazole Sodium (Protonix Ec Tab) 40 mg PO DAILY [facility] Last Admin: 06/08/18 17:23 Dose: 40 mg Rosuvastatin Calcium (Crestor) 5 mg PO HS [facility] Last Admin: 06/08/18 21:19 Dose: 5 mg Spironolactone (Aldactone) 25 mg PO DAILY [facility] Last Admin: 06/08/18 14:07 Dose: 25 mg - Labs Labs: 06/08/18 08:36 06/08/18 08:36 PT 12.7 SECONDS (9.7-12.2) H 06/07/18 07:23 INR 1.2 06/07/18 07:23 APTT 35 SECONDS (21-34) H 06/07/18 07:23 Assessment and Plan - Assessment and Plan (Free Text) Assessment: Patient seen and evaluated personally by me. Plan of care d/w the director medical economics and as documented
--- NOTE | 2018-06-08 15:58 | CP.PCM.PN ---
Subjective - Date & Time of Evaluation Date of Evaluation: 06/08/18 Time of Evaluation: 14:00 - Subjective Subjective: Patient seen and examined at bedside, resting comfortably. Patient stated that SOB has improved. Patient doing well after yesterdays thoracentesis. Patient denied chest pain, fever, chills, palpitations, nausea, vomiting, diarrhea. Exam Gen: alert and awake and oriented x3, no acute distress Cardio: RRR, no murmur Pulm: wheezing on right, no accessory muscle use GI: soft, nontender A and P 1. Pleural effusion - Most likely secondary to CHF exacerbation - Chest CT 06/06/18: moderate to large right pleural effusion; opacities in left upper lobe; calcified granuloma and hilar lymphadenopathy likely due to prior granulomatosis or sarcoidosis - Chest x-ray 06/06/18: moderate right and small left pleural effusion; status post median sternotomy; b/l pleural thickening - Recommend follow-up chest x-ray - Thoracentesis 06/07/18 by IR for small right effusion seen on u/s: 250cc straw- colored fluid removed - Pleural fluid gram stain 06/07/18: few WBCs, no organisms seen - Pleural fluid culture 06/07/18: pending - Blood culture 06/05/18: no growth to date - Continue Duoneb 3ml rq4 - Continue Lasix 20 mg BID - Continue aztreonam 2. CHF exacerbation -Cardio consulted -Continue medications 3. SCOUT -Renal consulted -Lasix decreased Objective - Vital Signs/Intake and Output Vital Signs (last 24 hours): Temp Pulse Resp BP Pulse Ox 97.8 F 114 H 18 136/73 94 L 06/08/18 07:45 06/08/18 09:09 06/08/18 07:45 06/08/18 09:24 06/08/18 07:45 - Medications Medications: Current Medications Acetaminophen (Tylenol 325mg Tab) 650 mg PO Q6 PRN PRN Reason: Fever >100.4 F Acetaminophen (Tylenol 325mg Tab) 650 mg PO Q6 PRN PRN Reason: Pain, moderate (4-7) Last Admin: 06/06/18 00:55 Dose: 650 mg Albuterol/Ipratropium (Duoneb 3 Mg/0.5 Mg (3 Ml) Ud) 3 ml INH RQ4 [facility] Last Admin: 06/08/18 11:40 Dose: 3 ml Aspirin (Ecotrin) 81 mg PO DAILY [facility] Last Admin: 06/08/18 09:24 Dose: 81 mg Calcium Acetate (Phoslo) 667 mg PO TIDCC [facility] Dextrose (Glutose 15) 0 gm PO ONCE PRN; Protocol PRN Reason: Hypoglycemia Protocol Dextrose (Dextrose 50% Inj) 0 ml IV STAT PRN; Protocol PRN Reason: Hypoglycemia Protocol Fluticasone/Vilanterol (Breo Ellipta 100-25 Mcg Inh) 1 puff INH RQD [facility] Last Admin: 06/08/18 08:20 Dose: 1 puff Furosemide (Lasix) 20 mg IVP BID [facility] Last Admin: 06/08/18 09:24 Dose: 20 mg Glucagon (Glucagen Diagnostic Kit) 0 mg IM STAT PRN; Protocol PRN Reason: Hypoglycemia Protocol Heparin Sodium (Porcine) (Heparin) 5,000 units SC Q8 [facility] Last Admin: 06/08/18 14:08 Dose: 5,000 units Dextrose (Dextrose 5% In Water 1000 Ml) 1,000 mls @ 0 mls/hr IV .Q0M PRN; Protocol PRN Reason: Hypoglycemia Protocol Aztreonam 1 gm/ Sodium (Chloride) 100 mls @ 100 mls/hr IVPB Q8 [facility]; Protocol Last Admin: 06/08/18 14:07 Dose: 100 mls/hr Doxycycline Hyclate 100 mg/ (Sodium Chloride) 100 mls @ 100 mls/hr IVPB Q12H [facility]; Protocol Last Admin: 06/08/18 12:21 Dose: 100 mls/hr Insulin Human Isoph/Insulin Regular (Novolin 70/30 (70/30 Units/Ml) 10 Ml) 7 units SC ACTID [facility] Insulin Human Regular (Novolin R) 0 unit SC ACHS [facility]; Protocol Last Admin: 06/08/18 12:20 Dose: 12 units Methylprednisolone (Solu-Medrol) 40 mg IVP Q6H [facility] Last Admin: 06/08/18 14:07 Dose: 40 mg Metoprolol Tartrate (Lopressor) 25 mg PO BID [facility] Last Admin: 06/08/18 09:23 Dose: 25 mg Rosuvastatin Calcium (Crestor) 5 mg PO HS [facility] Last Admin: 06/07/18 22:36 Dose: 5 mg Spironolactone (Aldactone) 25 mg PO DAILY [facility] Last Admin: 06/08/18 14:07 Dose: 25 mg - Labs Labs: 06/08/18 08:36 06/08/18 08:36 PT 12.7 SECONDS (9.7-12.2) H 06/07/18 07:23 INR 1.2 06/07/18 07:23 APTT 35 SECONDS (21-34) H 06/07/18 07:23
[2018-06-08] MEDS: Pantoprazole 40 mg EC Tab PO SCH (17:23)
[2018-06-08] MEDS: (Novolin 70/30) NPH/Regular 70/30 Units/ml 10 ml vial SC SCH (17:24)
[2018-06-09] MEDS: MethylPREDNISolone 40 mg Vial IVP SCH ×4 (01:01→20:05)
[2018-06-09] MEDS: Albuterol-Ipratrop 3 mg / 0.5 (3 ml) UD INH SCH ×6 (03:25→21:05)
[2018-06-09] MEDS: Aztreonam 1 GM in Sodium Chloride 0.9% 100 ML IVPB SCH ×2 (06:10→18:00)
--- NOTE | 2018-06-09 06:57 | CP.PCM.PN ---
<Kathy Rivera - Last Filed: 06/09/18 19:31> Subjective - Date & Time of Evaluation Date of Evaluation: 06/09/18 Time of Evaluation: 10:45 - Subjective Subjective: Patient examined at bedside. Pt still complaining about how overnight staff is not assisting her in time to use restroom. Pt reports improvement in breathing. Denies chest pain, nausea, diarrhea. Objective - Vital Signs/Intake and Output Vital Signs (last 24 hours): Temp Pulse Resp BP Pulse Ox 97.5 F L 104 H 20 145/74 97 06/09/18 01:00 06/09/18 01:00 06/09/18 01:00 06/09/18 01:00 06/09/18 01:00 Intake and Output: 06/08/18 06/09/18 18:59 06:59 Intake Total 560 400 Balance 560 400 - Medications Medications: Current Medications Acetaminophen (Tylenol 325mg Tab) 650 mg PO Q6 PRN PRN Reason: Fever >100.4 F Acetaminophen (Tylenol 325mg Tab) 650 mg PO Q6 PRN PRN Reason: Pain, moderate (4-7) Last Admin: 06/06/18 00:55 Dose: 650 mg Albuterol/Ipratropium (Duoneb 3 Mg/0.5 Mg (3 Ml) Ud) 3 ml INH RQ4 [facility] Last Admin: 06/09/18 03:25 Dose: 3 ml Aspirin (Ecotrin) 81 mg PO DAILY [facility] Last Admin: 06/08/18 09:24 Dose: 81 mg Calcium Acetate (Phoslo) 667 mg PO TIDCC [facility] Last Admin: 06/08/18 17:23 Dose: 667 mg Dextrose (Glutose 15) 0 gm PO ONCE PRN; Protocol PRN Reason: Hypoglycemia Protocol Dextrose (Dextrose 50% Inj) 0 ml IV STAT PRN; Protocol PRN Reason: Hypoglycemia Protocol Fluticasone/Vilanterol (Breo Ellipta 100-25 Mcg Inh) 1 puff INH RQD [facility] Last Admin: 06/08/18 08:20 Dose: 1 puff Furosemide (Lasix) 20 mg IVP BID [facility] Last Admin: 06/08/18 17:23 Dose: 20 mg Glucagon (Glucagen Diagnostic Kit) 0 mg IM STAT PRN; Protocol PRN Reason: Hypoglycemia Protocol Heparin Sodium (Porcine) (Heparin) 5,000 units SC Q8 [facility] Last Admin: 06/09/18 06:12 Dose: 5,000 units Dextrose (Dextrose 5% In Water 1000 Ml) 1,000 mls @ 0 mls/hr IV .Q0M PRN; Protocol PRN Reason: Hypoglycemia Protocol Aztreonam 1 gm/ Sodium (Chloride) 100 mls @ 100 mls/hr IVPB Q8 [facility]; Protocol Last Admin: 06/09/18 06:10 Dose: 100 mls/hr Doxycycline Hyclate 100 mg/ (Sodium Chloride) 100 mls @ 100 mls/hr IVPB Q12H [facility]; Protocol Last Admin: 06/09/18 00:54 Dose: 100 mls/hr Insulin Human Isoph/Insulin Regular (Novolin 70/30 (70/30 Units/Ml) 10 Ml) 7 units SC ACTID [facility] Last Admin: 06/08/18 17:24 Dose: 7 units Insulin Human Regular (Novolin R) 0 unit SC ACHS [facility]; Protocol Last Admin: 06/08/18 21:42 Dose: Not Given Methylprednisolone (Solu-Medrol) 40 mg IVP Q6H [facility] Last Admin: 06/09/18 01:01 Dose: 40 mg Metoprolol Tartrate (Lopressor) 25 mg PO BID [facility] Last Admin: 06/08/18 17:23 Dose: 25 mg Pantoprazole Sodium (Protonix Ec Tab) 40 mg PO DAILY [facility] Last Admin: 06/08/18 17:23 Dose: 40 mg Rosuvastatin Calcium (Crestor) 5 mg PO HS [facility] Last Admin: 06/08/18 21:19 Dose: 5 mg Spironolactone (Aldactone) 25 mg PO DAILY [facility] Last Admin: 06/08/18 14:07 Dose: 25 mg - Labs Labs: 06/08/18 08:36 06/08/18 08:36 PT 12.7 SECONDS (9.7-12.2) H 06/07/18 07:23 INR 1.2 06/07/18 07:23 APTT 35 SECONDS (21-34) H 06/07/18 07:23 - Additional Findings Additional findings: - Constitutional Appears: Non-toxic, No Acute Distress - Head Exam Head Exam: ATRAUMATIC, NORMAL INSPECTION, NORMOCEPHALIC - Eye Exam Eye Exam: EOMI, Normal appearance - ENT Exam ENT Exam: Mucous Membranes Moist, Normal Exam - Neck Exam Neck Exam: Normal Inspection - Respiratory Exam Respiratory Exam: Accessory Muscle Use, Rales, Rhonchi, Respiratory Distress - Cardiovascular Exam Cardiovascular Exam: Tachycardia, REGULAR RHYTHM - GI/Abdominal Exam GI & Abdominal Exam: Soft, Normal Bowel Sounds. absent: Tenderness - Extremities Exam Extremities Exam: Normal Inspection. absent: Calf Tenderness, Pedal Edema - Back Exam Additional comments: right thoracentesis site, C/D/I - Neurological Exam Neurological Exam: Alert, Awake, Oriented x3 - Psychiatric Exam Psychiatric exam: Normal Affect, Normal Mood - Skin Skin Exam: Dry, Intact, Normal Color, Warm Assessment and Plan - Assessment and Plan (Free Text) Assessment: 78 year old female with PMHx of CAD (CABG 2014), HTN, T2DM, COPD, and osteoporosis, presenting for evaluation of SOB, and admitted for treatment of an acute CHF exacerbation. Plan: CHF exacerbation, acute on chronic Echo 2015: Grade IV restrictive diastolic dysfunction and systolic dysfunction echo(06/2018): EF 20%, PFO, mod MR, calcified AV, LA dilation Troponins negative x3, BNP is 7020 on admission Lasix 20mg IVP BID Lopressor 25mg PO BID Hold CARMEL/ARb pending improved renal function ASA 81mg Solu-medrol 40mg IV Q6 Added spironolactone 25mg po QD Cardiology, Dr. Huerta, consulted. Recommendations appreciated. Suspected CAP CXR: Diffuse increased interstitial airspace opacities suggestive for edema/infiltrate, superimposed confluent consolidative changes in left mid to lower lung, and right lung apex and base CT chest:Markedly limited study degraded by motion artifact. The evaluation is also limited without IV contrast administration. Round consolidation versus localized pleural effusion noted at the medial aspect of the right upper chest. Reticular opacities and ground-glass opacities are noted in the upper lobes larger on the left. Moderate to large right pleural effusion. Calcified granuloma and calcified mediastinal and hilar lymphadenopathy are again noted. Findings likely due to prior granulomatosis disease or sarcoidosis. Moderate cardiomegaly. F/U repeat chest xray AP/Lat No leukocytosis/fevers Vapotherm PRN, not tolerating BiPAP Tylenol prn fever Aztreonam and Doxy Duonebs q4h Breo-Ellipta Pulmonology, Dr. High Suspected UTI UA contaminated F/U urine culture SCOUT Creatinine is 1.7 on admission, worsening, 2.6 today Consider adding CARMEL pending Cr Nephro, Dr. Rader Constipation starting Docusate 100mg PO TID DM2 Accucheck ACHS ISS medium ACHS Novolin 7 ACTID, elevated 2/2 IVCCS Hypoglycemia protocol Hx of HTN Continue to monitor, add CARMEL if Cr stable, otherwise maybe Hydralazine PPX PT/OT eval GI ppx: protonix 40 mg PO daily, 2/2 IVCCS VTE ppx: Heparin 5000 sc q8, SCDs CCD/HHD Discussed w/ Dr. Alonzo -Kathy Rivera, PGY-1 <Roscoe Alonzo H - Last Filed: 06/10/18 07:48> Objective - Vital Signs/Intake and Output Vital Signs (last 24 hours): Temp Pulse Resp BP Pulse Ox 97.4 F L 91 H 20 128/78 99 06/10/18 00:00 06/10/18 00:00 06/10/18 00:00 06/10/18 00:00 06/10/18 00:00 - Medications Medications: Current Medications Acetaminophen (Tylenol 325mg Tab) 650 mg PO Q6 PRN PRN Reason: Fever >100.4 F Acetaminophen (Tylenol 325mg Tab) 650 mg PO Q6 PRN PRN Reason: Pain, moderate (4-7) Last Admin: 06/06/18 00:55 Dose: 650 mg Albuterol/Ipratropium (Duoneb 3 Mg/0.5 Mg (3 Ml) Ud) 3 ml INH RQ4 [facility] Last Admin: 06/10/18 00:10 Dose: 3 ml Aspirin (Ecotrin) 81 mg PO DAILY [facility] Last Admin: 06/09/18 11:50 Dose: 81 mg Calcium Acetate (Phoslo) 1,334 mg PO TIDCC [facility] Dextrose (Glutose 15) 0 gm PO ONCE PRN; Protocol PRN Reason: Hypoglycemia Protocol Dextrose (Dextrose 50% Inj) 0 ml IV STAT PRN; Protocol PRN Reason: Hypoglycemia Protocol Docusate Sodium (Colace) 100 mg PO TID [facility] Last Admin: 06/09/18 20:05 Dose: 100 mg Fluticasone/Vilanterol (Breo Ellipta 100-25 Mcg Inh) 1 puff INH RQD [facility] Last Admin: 06/09/18 08:50 Dose: 1 puff Furosemide (Lasix) 20 mg IVP DAILY [facility] Glucagon (Glucagen Diagnostic Kit) 0 mg IM STAT PRN; Protocol PRN Reason: Hypoglycemia Protocol Heparin Sodium (Porcine) (Heparin) 5,000 units SC Q8 [facility] Last Admin: 06/10/18 06:44 Dose: 5,000 units Dextrose (Dextrose 5% In Water 1000 Ml) 1,000 mls @ 0 mls/hr IV .Q0M PRN; Protocol PRN Reason: Hypoglycemia Protocol Doxycycline Hyclate 100 mg/ (Sodium Chloride) 100 mls @ 100 mls/hr IVPB Q12H [facility]; Protocol Last Admin: 06/10/18 01:56 Dose: 100 mls/hr Aztreonam 1 gm/ Sodium (Chloride) 100 mls @ 100 mls/hr IVPB Q12H [facility]; Protocol Last Admin: 06/10/18 06:44 Dose: 100 mls/hr Insulin Human Isoph/Insulin Regular (Novolin 70/30 (70/30 Units/Ml) 10 Ml) 7 units SC ACTID [facility] Last Admin: 06/09/18 18:00 Dose: 7 units Insulin Human Regular (Novolin R) 0 unit SC ACHS [facility]; Protocol Last Admin: 06/09/18 21:51 Dose: Not Given Methylprednisolone (Solu-Medrol) 40 mg IVP Q6H [facility] Last Admin: 06/10/18 01:56 Dose: 40 mg Metoprolol Tartrate (Lopressor) 25 mg PO BID [facility] Last Admin: 06/09/18 18:00 Dose: 25 mg Pantoprazole Sodium (Protonix Ec Tab) 40 mg PO DAILY [facility] Last Admin: 06/09/18 11:50 Dose: 40 mg Rosuvastatin Calcium (Crestor) 5 mg PO HS [facility] Last Admin: 06/09/18 22:13 Dose: 5 mg Spironolactone (Aldactone) 25 mg PO DAILY [facility] Last Admin: 06/08/18 14:07 Dose: 25 mg - Labs Labs: 06/09/18 07:03 06/09/18 07:03 PT 12.7 SECONDS (9.7-12.2) H 06/07/18 07:23 INR 1.2 06/07/18 07:23 APTT 35 SECONDS (21-34) H 06/07/18 07:23 Attending/Attestation - Attestation I have personally seen and examined this patient.: Yes I have fully participated in the care of the patient.: Yes I have reviewed all pertinent clinical information, including history, physical exam and plan: Yes Notes (Text): 06/10/18 07:44 Medical attending: Patient was seen and examined by me, reviewed the above note with the medical receptionist assistant and agree with the above The repeat CXRAY shows still has a lot of venous congestion, likley related to history of the CHF As mentioned previously she recently had a thoracentesis done and removal of flu id The patient was on lasix, temporarily on hold at this time due to renal function. The patient also remains on the IV solumedrol as well Roscoe Alonzo
[2018-06-09 07:47] LABS: HEMOGLOBIN 11.2 g/dL (11.0-16.0); LYMPH # 0.3 K/uL (1.0-4.3); LYMPH % 2.3 % (20.0-40.0); MEAN CELL VOLUME 89.8 fL (81.0-99.0); MEAN CORPUSCULAR HEMOGLOBIN 29.7 pg (27.0-31.0); MEAN CORPUSCULAR HGB CONC 33.1 g/dL (33.0-37.0); MEAN PLATELET VOLUME 10.1 fL (7.2-11.7); MONO # 0.1 K/uL (0.0-0.8); MONO % 1.1 % (0.0-10.0); NEUT # 11.4 K/uL (1.8-7.0); NEUT % 96.6 % (50.0-75.0); PLATELET COUNT 273 K/uL (130-400); RBC 3.77 Mil/uL (3.80-5.20); RED CELL DISTRIBUTION WIDTH 14.6 % (11.5-14.5); WHITE BLOOD COUNT 11.8 K/uL (4.8-10.8)
[2018-06-09] MEDS: (Novolin R) Insulin Human Regular 100 units/ml vial SC SCH ×4 (08:22→21:51)
[2018-06-09] MEDS: (Novolin 70/30) NPH/Regular 70/30 Units/ml 10 ml vial SC SCH ×3 (08:22→18:00)
[2018-06-09] MEDS: Fluticasone-Vilanterol 100/25mcg Diskus INH SCH (08:50)
[2018-06-09 09:51] LABS: BANDS 1 % (0-2); LYMPHOCYTE 2 % (20-40); MONOCYTE 1 % (0-10); NEUTROPHIL 96 % (50-75); PLATELET ESTIMATE NORMAL (NORMAL); TOTAL CELLS COUNTED 100
[2018-06-09 09:52] LABS: OVALOCYTES SLIGHT
[2018-06-09] MEDS: Pantoprazole 40 mg EC Tab PO SCH (11:50)
[2018-06-09 14:52] LABS: ALBUMIN 3.5 g/dL (3.5-5.0); CALCIUM 8.8 mg/dl (8.6-10.4)
--- NOTE | 2018-06-09 16:33 | RAD ---
Date of service: 06/09/2018 HISTORY: SOB COMPARISON: Chest radiographs 06/08/2018. TECHNIQUE: Chest PA and lateral FINDINGS: LUNGS: Limited airspace disease mid left lung zone laterally again evident with right upper lobe/apical pulmonary nodules again evident. Chronic diffuse interstitial pulmonary disease again appreciated. PLEURA: Trace left pleural effusion not excluded. None is seen at the right. No pneumothorax bilaterally. CARDIOVASCULAR: Calcific atherosclerotic changes are seen related to the thoracic aorta. Stable cardiomegaly. Post CABG changes reiterated. No pulmonary vascular congestion. Calcified by hilar lymph nodes are again seen versus granulomata, left greater than right. OSSEOUS STRUCTURES: No significant abnormalities. VISUALIZED UPPER ABDOMEN: Normal. OTHER FINDINGS: None. IMPRESSION: Stable chest radiograph including right upper lung zone faint nodular changes, chronic interstitial pulmonary disease and limited patchy density mid left lung zone laterally.
--- NOTE | 2018-06-09 18:07 | CP.PCM.PN ---
Subjective - Date & Time of Evaluation Date of Evaluation: 06/09/18 Time of Evaluation: 10:00 - Subjective Subjective: Patient seen and examined at bedside. Patient complained of SOB, wheezing and a cough overnight. Patient denied chest pain, fever, chills, palpitations, nausea, vomiting, diarrhea. Physical Exam Gen: alert and awake and oriented x3, no acute distress Cardio: RRR, no murmur Pulm: diminished air movement, wheezing, no accessory muscle use GI: soft, nontender A and P 1. Pleural effusion - Most likely secondary to CHF exacerbation - Chest x-ray 06/08/18: no pneumothorax, improving aeration RLL - Chest x-ray 06/06/18: moderate right and small left pleural effusion; status post median sternotomy; b/l pleural effusion - Chest CT 06/06/18: moderate to large right pleural effusion; opacities in left upper lobe; calcified granuloma and hilar lymphadenopathy likely due to prior granulomatosis or sarcoidosis - Thoracentesis 06/07/18 by IR for small right effusion seen on u/s: 250cc straw- colored fluid removed - Pleural fluid gram stain 06/07/18: few WBCs, no organisms seen - Pleural fluid culture 06/07/18: no growth to date - Blood culture 06/05/18: no growth to date - Continue Duoneb 3ml rq4 - Continue Solu-medrol - Continue Fluticasone/Vilanterol - Continue Lasix 20 mg BID - Comsider to discontinue aztreonam, doxycycline 2. CHF exacerbation, consider LifeVest -Cardio consulted -Continue medications 3. SCOUT -Renal consulted -Lasix decreased Objective - Vital Signs/Intake and Output Vital Signs (last 24 hours): Temp Pulse Resp BP Pulse Ox 97.9 F 101 H 18 157/81 H 98 06/09/18 15:00 06/09/18 16:00 06/09/18 15:00 06/09/18 15:00 06/09/18 15:00 Intake and Output: 06/09/18 06/09/18 06:59 18:59 Intake Total 400 460 Output Total 600 Balance 400 -140 - Medications Medications: Current Medications Acetaminophen (Tylenol 325mg Tab) 650 mg PO Q6 PRN PRN Reason: Fever >100.4 F Acetaminophen (Tylenol 325mg Tab) 650 mg PO Q6 PRN PRN Reason: Pain, moderate (4-7) Last Admin: 06/06/18 00:55 Dose: 650 mg Albuterol/Ipratropium (Duoneb 3 Mg/0.5 Mg (3 Ml) Ud) 3 ml INH RQ4 [facility] Last Admin: 06/09/18 11:01 Dose: 3 ml Aspirin (Ecotrin) 81 mg PO DAILY [facility] Last Admin: 06/09/18 11:50 Dose: 81 mg Calcium Acetate (Phoslo) 667 mg PO TIDCC [facility] Last Admin: 06/09/18 12:55 Dose: 667 mg Dextrose (Glutose 15) 0 gm PO ONCE PRN; Protocol PRN Reason: Hypoglycemia Protocol Dextrose (Dextrose 50% Inj) 0 ml IV STAT PRN; Protocol PRN Reason: Hypoglycemia Protocol Fluticasone/Vilanterol (Breo Ellipta 100-25 Mcg Inh) 1 puff INH RQD [facility] Last Admin: 06/09/18 08:50 Dose: 1 puff Furosemide (Lasix) 20 mg IVP BID [facility] Last Admin: 06/08/18 17:23 Dose: 20 mg Glucagon (Glucagen Diagnostic Kit) 0 mg IM STAT PRN; Protocol PRN Reason: Hypoglycemia Protocol Heparin Sodium (Porcine) (Heparin) 5,000 units SC Q8 [facility] Last Admin: 06/09/18 14:32 Dose: 5,000 units Dextrose (Dextrose 5% In Water 1000 Ml) 1,000 mls @ 0 mls/hr IV .Q0M PRN; Protocol PRN Reason: Hypoglycemia Protocol Doxycycline Hyclate 100 mg/ (Sodium Chloride) 100 mls @ 100 mls/hr IVPB Q12H [facility]; Protocol Last Admin: 06/09/18 12:55 Dose: 100 mls/hr Aztreonam 1 gm/ Sodium (Chloride) 100 mls @ 100 mls/hr IVPB Q12H [facility]; Protocol Insulin Human Isoph/Insulin Regular (Novolin 70/30 (70/30 Units/Ml) 10 Ml) 7 units SC ACTID [facility] Last Admin: 06/09/18 12:54 Dose: 7 units Insulin Human Regular (Novolin R) 0 unit SC ACHS [facility]; Protocol Last Admin: 06/09/18 12:55 Dose: 12 units Methylprednisolone (Solu-Medrol) 40 mg IVP Q6H [facility] Last Admin: 06/09/18 14:32 Dose: 40 mg Metoprolol Tartrate (Lopressor) 25 mg PO BID [facility] Last Admin: 06/09/18 11:50 Dose: 25 mg Pantoprazole Sodium (Protonix Ec Tab) 40 mg PO DAILY [facility] Last Admin: 06/09/18 11:50 Dose: 40 mg Rosuvastatin Calcium (Crestor) 5 mg PO HS [facility] Last Admin: 06/08/18 21:19 Dose: 5 mg Spironolactone (Aldactone) 25 mg PO DAILY [facility] Last Admin: 06/08/18 14:07 Dose: 25 mg - Labs Labs: 06/09/18 07:03 06/09/18 07:03 PT 12.7 SECONDS (9.7-12.2) H 06/07/18 07:23 INR 1.2 06/07/18 07:23 APTT 35 SECONDS (21-34) H 06/07/18 07:23
--- NOTE | 2018-06-09 23:02 | CP.PCM.PN ---
Subjective - Date & Time of Evaluation Date of Evaluation: 06/09/18 Time of Evaluation: 13:00 - Subjective Subjective: Patient placed on high flow O2 today; dyspnea subsequently improved; Objective - Vital Signs/Intake and Output Vital Signs (last 24 hours): Temp Pulse Resp BP Pulse Ox 97.9 F 101 H 18 150/72 98 06/09/18 15:00 06/09/18 16:00 06/09/18 15:00 06/09/18 18:00 06/09/18 15:00 Intake and Output: 06/09/18 06/10/18 18:59 06:59 Intake Total 460 Output Total 600 Balance -140 - Medications Medications: Current Medications Acetaminophen (Tylenol 325mg Tab) 650 mg PO Q6 PRN PRN Reason: Fever >100.4 F Acetaminophen (Tylenol 325mg Tab) 650 mg PO Q6 PRN PRN Reason: Pain, moderate (4-7) Last Admin: 06/06/18 00:55 Dose: 650 mg Albuterol/Ipratropium (Duoneb 3 Mg/0.5 Mg (3 Ml) Ud) 3 ml INH RQ4 [facility] Last Admin: 06/09/18 21:05 Dose: 3 ml Aspirin (Ecotrin) 81 mg PO DAILY [facility] Last Admin: 06/09/18 11:50 Dose: 81 mg Calcium Acetate (Phoslo) 1,334 mg PO TIDCC [facility] Dextrose (Glutose 15) 0 gm PO ONCE PRN; Protocol PRN Reason: Hypoglycemia Protocol Dextrose (Dextrose 50% Inj) 0 ml IV STAT PRN; Protocol PRN Reason: Hypoglycemia Protocol Docusate Sodium (Colace) 100 mg PO TID [facility] Last Admin: 06/09/18 20:05 Dose: 100 mg Fluticasone/Vilanterol (Breo Ellipta 100-25 Mcg Inh) 1 puff INH RQD [facility] Last Admin: 06/09/18 08:50 Dose: 1 puff Furosemide (Lasix) 20 mg IVP DAILY [facility] Glucagon (Glucagen Diagnostic Kit) 0 mg IM STAT PRN; Protocol PRN Reason: Hypoglycemia Protocol Heparin Sodium (Porcine) (Heparin) 5,000 units SC Q8 [facility] Last Admin: 06/09/18 22:15 Dose: 5,000 units Dextrose (Dextrose 5% In Water 1000 Ml) 1,000 mls @ 0 mls/hr IV .Q0M PRN; Pr otocol PRN Reason: Hypoglycemia Protocol Doxycycline Hyclate 100 mg/ (Sodium Chloride) 100 mls @ 100 mls/hr IVPB Q12H [facility]; Protocol Last Admin: 06/09/18 12:55 Dose: 100 mls/hr Aztreonam 1 gm/ Sodium (Chloride) 100 mls @ 100 mls/hr IVPB Q12H [facility]; Protocol Last Admin: 06/09/18 18:00 Dose: 100 mls/hr Insulin Human Isoph/Insulin Regular (Novolin 70/30 (70/30 Units/Ml) 10 Ml) 7 units SC ACTID [facility] Last Admin: 06/09/18 18:00 Dose: 7 units Insulin Human Regular (Novolin R) 0 unit SC ACHS [facility]; Protocol Last Admin: 06/09/18 21:51 Dose: Not Given Methylprednisolone (Solu-Medrol) 40 mg IVP Q6H [facility] Last Admin: 06/09/18 20:05 Dose: 40 mg Metoprolol Tartrate (Lopressor) 25 mg PO BID [facility] Last Admin: 06/09/18 18:00 Dose: 25 mg Pantoprazole Sodium (Protonix Ec Tab) 40 mg PO DAILY [facility] Last Admin: 06/09/18 11:50 Dose: 40 mg Rosuvastatin Calcium (Crestor) 5 mg PO HS [facility] Last Admin: 06/09/18 22:13 Dose: 5 mg Spironolactone (Aldactone) 25 mg PO DAILY [facility] Last Admin: 06/08/18 14:07 Dose: 25 mg - Labs Labs: 06/09/18 07:03 06/09/18 07:03 PT 12.7 SECONDS (9.7-12.2) H 06/07/18 07:23 INR 1.2 06/07/18 07:23 APTT 35 SECONDS (21-34) H 06/07/18 07:23 - Constitutional Appears: Non-toxic, No Acute Distress - Eye Exam Eye Exam: Normal appearance - Respiratory Exam Respiratory Exam: absent: Respiratory Distress Additional comments: diffuse exp wheezes - Cardiovascular Exam Cardiovascular Exam: RRR, +S1, +S2 - GI/Abdominal Exam GI & Abdominal Exam: Soft. absent: Distended, Tenderness - Extremities Exam Additional comments: 1+ b/l lower ext edema - Neurological Exam Neurological Exam: Alert, Awake - Psychiatric Exam Psychiatric exam: Normal Mood. absent: Agitated - Skin Skin Exam: Warm. 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; worsened renal function in the setting of aggressive diuresis; renal function relatively stable after decreasing diuretic dose, currently held; underlying CKD likely due to diabetic kidney disease but will obtain 24 hr urine protein for better assessment, also awaiting results of serologic workup for CKD; Has CHF w/ severe systolic dysfunction; edema increased from 2 days ago; CXR appears stable; -Will restart diuretics with IV lasix 20 mg once daily; holding aldactone for now; -Avoid nephrotoxic agents (NSAIDS, etc); -Increasing phoslo to 2 tabs w/ meals (phos still significantly elevated); Status: Acute (2) CHF (congestive heart failure) Status: Acute (3) Chronic kidney disease-mineral and bone disorder Status: Acute (4) HTN (hypertension) Status: Acute (5) Pneumonia Assessment & Plan: On aztreonam and doxy; aztreonam dose decreased; continue to dose antibiotics for CrCl < 20 ml/min; Status: Acute
[2018-06-10] MEDS: Albuterol-Ipratrop 3 mg / 0.5 (3 ml) UD INH SCH ×6 (00:10→19:21)
[2018-06-10] MEDS: MethylPREDNISolone 40 mg Vial IVP SCH ×4 (01:56→22:01)
[2018-06-10] MEDS: Aztreonam 1 GM in Sodium Chloride 0.9% 100 ML IVPB SCH ×2 (06:44→18:06)
--- NOTE | 2018-06-10 06:58 | CP.PCM.PN ---
Subjective - Date & Time of Evaluation Date of Evaluation: 06/10/18 Time of Evaluation: 07:10 - Subjective Subjective: Patient examined at bedside. No acute overnight events. Patient reports she is itchy, hot, sweaty and feels dirty. Pt reports breathing is much improved now on vapotherm. Denies chest pain, nausea, productive cough. Objective - Vital Signs/Intake and Output Vital Signs (last 24 hours): Temp Pulse Resp BP Pulse Ox 97.4 F L 91 H 20 128/78 99 06/10/18 00:00 06/10/18 00:00 06/10/18 00:00 06/10/18 00:00 06/10/18 00:00 Intake and Output: 06/09/18 06/10/18 18:59 06:59 Intake Total 460 Output Total 600 Balance -140 - Medications Medications: Current Medications Acetaminophen (Tylenol 325mg Tab) 650 mg PO Q6 PRN PRN Reason: Fever >100.4 F Acetaminophen (Tylenol 325mg Tab) 650 mg PO Q6 PRN PRN Reason: Pain, moderate (4-7) Last Admin: 06/06/18 00:55 Dose: 650 mg Albuterol/Ipratropium (Duoneb 3 Mg/0.5 Mg (3 Ml) Ud) 3 ml INH RQ4 [facility] Last Admin: 06/10/18 00:10 Dose: 3 ml Aspirin (Ecotrin) 81 mg PO DAILY [facility] Last Admin: 06/09/18 11:50 Dose: 81 mg Calcium Acetate (Phoslo) 1,334 mg PO TIDCC [facility] Dextrose (Glutose 15) 0 gm PO ONCE PRN; Protocol PRN Reason: Hypoglycemia Protocol Dextrose (Dextrose 50% Inj) 0 ml IV STAT PRN; Protocol PRN Reason: Hypoglycemia Protocol Docusate Sodium (Colace) 100 mg PO TID [facility] Last Admin: 06/09/18 20:05 Dose: 100 mg Fluticasone/Vilanterol (Breo Ellipta 100-25 Mcg Inh) 1 puff INH RQD [facility] Last Admin: 06/09/18 08:50 Dose: 1 puff Furosemide (Lasix) 20 mg IVP DAILY [facility] Glucagon (Glucagen Diagnostic Kit) 0 mg IM STAT PRN; Protocol PRN Reason: Hypoglycemia Protocol Heparin Sodium (Porcine) (Heparin) 5,000 units SC Q8 [facility] Last Admin: 06/10/18 06:44 Dose: 5,000 units Dextrose (Dextrose 5% In Water 1000 Ml) 1,000 mls @ 0 mls/hr IV .Q0M PRN; Protocol PRN Reason: Hypoglycemia Protocol Doxycycline Hyclate 100 mg/ (Sodium Chloride) 100 mls @ 100 mls/hr IVPB Q12H [facility]; Protocol Last Admin: 06/10/18 01:56 Dose: 100 mls/hr Aztreonam 1 gm/ Sodium (Chloride) 100 mls @ 100 mls/hr IVPB Q12H [facility]; Protocol Last Admin: 06/10/18 06:44 Dose: 100 mls/hr Insulin Human Isoph/Insulin Regular (Novolin 70/30 (70/30 Units/Ml) 10 Ml) 7 units SC ACTID [facility] Last Admin: 06/09/18 18:00 Dose: 7 units Insulin Human Regular (Novolin R) 0 unit SC ACHS [facility]; Protocol Last Admin: 06/09/18 21:51 Dose: Not Given Methylprednisolone (Solu-Medrol) 40 mg IVP Q6H [facility] Last Admin: 06/10/18 01:56 Dose: 40 mg Metoprolol Tartrate (Lopressor) 25 mg PO BID [facility] Last Admin: 06/09/18 18:00 Dose: 25 mg Pantoprazole Sodium (Protonix Ec Tab) 40 mg PO DAILY [facility] Last Admin: 06/09/18 11:50 Dose: 40 mg Rosuvastatin Calcium (Crestor) 5 mg PO HS [facility] Last Admin: 06/09/18 22:13 Dose: 5 mg Spironolactone (Aldactone) 25 mg PO DAILY [facility] Last Admin: 06/08/18 14:07 Dose: 25 mg - Labs Labs: 06/09/18 07:03 06/09/18 07:03 PT 12.7 SECONDS (9.7-12.2) H 06/07/18 07:23 INR 1.2 06/07/18 07:23 APTT 35 SECONDS (21-34) H 06/07/18 07:23 - Constitutional Appears: Non-toxic, No Acute Distress - Head Exam Head Exam: ATRAUMATIC, NORMAL INSPECTION, NORMOCEPHALIC - Eye Exam Eye Exam: EOMI, Normal appearance - ENT Exam ENT Exam: Mucous Membranes Moist, Normal Exam - Neck Exam Neck Exam: Normal Inspection - Respiratory Exam Respiratory Exam: Rhonchi, NORMAL BREATHING PATTERN. absent: Wheezes, Respiratory Distress - Cardiovascular Exam Cardiovascular Exam: Tachycardia, REGULAR RHYTHM - GI/Abdominal Exam GI & Abdominal Exam: Soft, Normal Bowel Sounds. absent: Tenderness - Extremities Exam Extremities Exam: Normal Inspection. absent: Calf Tenderness, Pedal Edema - Neurological Exam Neurological Exam: Alert, Awake, Oriented x3 - Psychiatric Exam Psychiatric exam: Normal Affect, Normal Mood - Skin Skin Exam: Dry, Intact, Normal Color, Warm Assessment and Plan - Assessment and Plan (Free Text) Assessment: 78 year old female with PMHx of CAD (CABG 2014), HTN, T2DM, COPD, and osteoporosis, presenting for evaluation of SOB, and admitted for treatment of an acute CHF exacerbation. Plan: CHF exacerbation, acute on chronic Echo 2014: Grade IV restrictive diastolic dysfunction and systolic dysfunction echo(06/2018): EF 20%, PFO, mod MR, calcified AV, LA dilation Troponins negative x3, BNP is 7020 on admission Lasix 20mg IVP QD Lopressor 25mg PO BID Hold CARMEL/ARb pending improved renal function ASA 81mg Spironolactone 25mg po QD-held Cardiology, Dr. Huerta, consulted, no cardiac intervention at this time, c/w medical management Suspected CAP CXR: Diffuse increased interstitial airspace opacities suggestive for edema/infiltrate, superimposed confluent consolidative changes in left mid to lower lung, and right lung apex and base CT chest:Markedly limited study degraded by motion artifact. The evaluation is also limited without IV contrast administration. Round consolidation versus localized pleural effusion noted at the medial aspect of the right upper chest. Reticular opacities and ground-glass opacities are noted in the upper lobes larger on the left. Moderate to large right pleural effusion. Calcified granuloma and calcified mediastinal and hilar lymphadenopathy are again noted. Findings likely due to prior granulomatosis disease or sarcoidosis. Moderate cardiomegaly. Vapotherm PRN, not tolerating BiPAP Sputum cx negative for mycobacteria Tylenol prn fever Aztreonam and Doxy Solu-medrol 40mg IV Q6H Duonebs q4h Breo-Ellipta Pulmonology, Dr. High SCOUT Creatinine is 1.7 on admission, worsening, 3.0 today Consider adding CARMEL pending Cr Nephro, Dr. Rader F/U UA Hyperphosphatemia, wosening 8.0-Phoslo 1334 mg po TID Constipation starting Docusate 100mg PO TID DM2 Accucheck ACHS ISS medium ACHS Novolin 7 ACTID, elevated 2/2 IVCCS Hypoglycemia protocol Hx of HTN Continue to monitor, add CARMEL if Cr stable, otherwise maybe Hydralazine Suspected UTI, resolved UA contaminated Urine cx negative PPX PT/OT eval GI ppx: protonix 40 mg PO daily, 2/2 IVCCS VTE ppx: Heparin 5000 sc q8, SCDs CCD/HHD Case discussed w/ Dr. Alonzo -Kathy Rivera, PGY-1
[2018-06-10] MEDS: Fluticasone-Vilanterol 100/25mcg Diskus INH SCH (07:45)
--- NOTE | 2018-06-10 08:00 | CP.PCM.PN ---
<Yariel August - Last Filed: 06/10/18 13:43> Subjective - Date & Time of Evaluation Date of Evaluation: 06/10/18 Time of Evaluation: 08:11 - Subjective Subjective: Yariel August PGY2 Nephrology Progress Note for Dr. Rader Patient was seen and examined at bedside. She is only complaining of having not passed her bowels in 5 days, which she states is normal for her. Aside from mild abdominal discomfort due to her constipation, she denies any dysuria, urinary frequency changes , fevers/chills, n/v/d. Her breathing has improved with continued breathing treatments. 24hr urine collection could not be completed, so was restarted this AM. Objective - Vital Signs/Intake and Output Vital Signs (last 24 hours): Temp Pulse Resp BP Pulse Ox 97.4 F L 91 H 20 128/78 99 06/10/18 00:00 06/10/18 00:00 06/10/18 00:00 06/10/18 00:00 06/10/18 00:00 - Medications Medications: Current Medications Acetaminophen (Tylenol 325mg Tab) 650 mg PO Q6 PRN PRN Reason: Fever >100.4 F Acetaminophen (Tylenol 325mg Tab) 650 mg PO Q6 PRN PRN Reason: Pain, moderate (4-7) Last Admin: 06/06/18 00:55 Dose: 650 mg Albuterol/Ipratropium (Duoneb 3 Mg/0.5 Mg (3 Ml) Ud) 3 ml INH RQ4 [facility] Last Admin: 06/10/18 00:10 Dose: 3 ml Aspirin (Ecotrin) 81 mg PO DAILY [facility] Last Admin: 06/09/18 11:50 Dose: 81 mg Calcium Acetate (Phoslo) 1,334 mg PO TIDCC [facility] Dextrose (Glutose 15) 0 gm PO ONCE PRN; Protocol PRN Reason: Hypoglycemia Protocol Dextrose (Dextrose 50% Inj) 0 ml IV STAT PRN; Protocol PRN Reason: Hypoglycemia Protocol Docusate Sodium (Colace) 100 mg PO TID [facility] Last Admin: 06/09/18 20:05 Dose: 100 mg Fluticasone/Vilanterol (Breo Ellipta 100-25 Mcg Inh) 1 puff INH RQD [facility] Last Admin: 06/09/18 08:50 Dose: 1 puff Furosemide (Lasix) 20 mg IVP DAILY [facility] Glucagon (Glucagen Diagnostic Kit) 0 mg IM STAT PRN; Protocol PRN Reason: Hypoglycemia Protocol Heparin Sodium (Porcine) (Heparin) 5,000 units SC Q8 [facility] Last Admin: 06/10/18 06:44 Dose: 5,000 units Dextrose (Dextrose 5% In Water 1000 Ml) 1,000 mls @ 0 mls/hr IV .Q0M PRN; Protocol PRN Reason: Hypoglycemia Protocol Doxycycline Hyclate 100 mg/ (Sodium Chloride) 100 mls @ 100 mls/hr IVPB Q12H [facility]; Protocol Last Admin: 06/10/18 01:56 Dose: 100 mls/hr Aztreonam 1 gm/ Sodium (Chloride) 100 mls @ 100 mls/hr IVPB Q12H [facility]; Protocol Last Admin: 06/10/18 06:44 Dose: 100 mls/hr Insulin Human Isoph/Insulin Regular (Novolin 70/30 (70/30 Units/Ml) 10 Ml) 7 units SC ACTID [facility] Last Admin: 06/09/18 18:00 Dose: 7 units Insulin Human Regular (Novolin R) 0 unit SC ACHS [facility]; Protocol Last Admin: 06/09/18 21:51 Dose: Not Given Methylprednisolone (Solu-Medrol) 40 mg IVP Q6H [facility] Last Admin: 06/10/18 01:56 Dose: 40 mg Metoprolol Tartrate (Lopressor) 25 mg PO BID [facility] Last Admin: 06/09/18 18:00 Dose: 25 mg Pantoprazole Sodium (Protonix Ec Tab) 40 mg PO DAILY [facility] Last Admin: 06/09/18 11:50 Dose: 40 mg Rosuvastatin Calcium (Crestor) 5 mg PO HS [facility] Last Admin: 06/09/18 22:13 Dose: 5 mg Spironolactone (Aldactone) 25 mg PO DAILY [facility] Last Admin: 06/08/18 14:07 Dose: 25 mg - Labs Labs: 06/09/18 07:03 06/09/18 07:03 PT 12.7 SECONDS (9.7-12.2) H 06/07/18 07:23 INR 1.2 06/07/18 07:23 APTT 35 SECONDS (21-34) H 06/07/18 07:23 - Constitutional Appears: Well, Non-toxic, No Acute Distress - Head Exam Head Exam: ATRAUMATIC, NORMAL INSPECTION - Eye Exam Eye Exam: EOMI, Normal appearance, PERRL Pupil Exam: NORMAL ACCOMODATION, PERRL - ENT Exam ENT Exam: Mucous Membranes Moist, Normal Exam - Neck Exam Neck Exam: Full ROM, Normal Inspection. absent: Lymphadenopathy - Respiratory Exam Respiratory Exam: Prolonged Expiratory Phase, Wheezes. absent: Respiratory Distress - Cardiovascular Exam Cardiovascular Exam: Tachycardia, +S1, +S2. absent: Murmur - GI/Abdominal Exam GI & Abdominal Exam: Soft, Tenderness (mild diffuse), Hypoactive Bowel Sounds. absent: Distended - Rectal Exam Rectal Exam: NORMAL INSPECTION - Extremities Exam Extremities Exam: Full ROM, Normal Capillary Refill, Normal Inspection. absent: Joint Swelling, Pedal Edema - Back Exam Back Exam: NORMAL INSPECTION - Neurological Exam Neurological Exam: Alert, Awake, CN II-XII Intact, Normal Gait, Oriented x3 - Psychiatric Exam Psychiatric exam: Normal Affect, Normal Mood - Skin Skin Exam: Dry, Intact, Normal Color, Warm Assessment and Plan - Assessment and Plan (Free Text) Assessment: 78 year old Female with a PMH of CAD s/p CABG, DM2, COPD, CHF w/ systolic and diastolic dysfunction, HTN and pneumonia who is admitted for shortness of breath likely due to CHF exacerbation and possible pneumonia. Nephrology is consulted for SCOUT. 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) - likely pre-renal in nature given excess diuresis - Lasix decreased to 20mg IVP daily - CKD likely due to diabetic kidney disease given her A1C - awaiting 24hr urine protein - avoid nephrotoxic agents - Phoslo increased to 3 tabs w/ meals for hyperphosphatemia - Vit D supplementation started - PTH pending - uric acid and CMP pending HTN - holding ACEi/ARBs at this time due to SCOUT - cont Lopressor - monitor VS CHF/CAD - cont diuresis as described above - cont BB, statin and ASA - holding MEGHAN blockage and aldactone at this time due to SCOUT - cardiology is following COPD/pneumonia - cont Abx w/ decrease Azactam dose - dose abx for CrCl <20 - cont steroids and breathing treatments Case was reviewed and discussed with Dr. Rader <Naun Rader - Last Filed: 06/10/18 22:53> Objective - Vital Signs/Intake and Output Vital Signs (last 24 hours): Temp Pulse Resp BP Pulse Ox 98.2 F 86 20 134/62 99 06/10/18 15:00 06/10/18 16:09 06/10/18 15:00 06/10/18 18:05 06/10/18 15:00 - Medications Medications: Current Medications Acetaminophen (Tylenol 325mg Tab) 650 mg PO Q6 PRN PRN Reason: Fever >100.4 F Acetaminophen (Tylenol 325mg Tab) 650 mg PO Q6 PRN PRN Reason: Pain, moderate (4-7) Last Admin: 06/06/18 00:55 Dose: 650 mg Albuterol/Ipratropium (Duoneb 3 Mg/0.5 Mg (3 Ml) Ud) 3 ml INH RQ4 [facility] Last Admin: 06/10/18 19:21 Dose: 3 ml Aspirin (Ecotrin) 81 mg PO DAILY [facility] Last Admin: 06/10/18 09:04 Dose: 81 mg Calcium Acetate (Phoslo) 2,001 mg PO TIDCC [facility] Last Admin: 06/10/18 18:04 Dose: 2,001 mg Dextrose (Glutose 15) 0 gm PO ONCE PRN; Protocol PRN Reason: Hypoglycemia Protocol Dextrose (Dextrose 50% Inj) 0 ml IV STAT PRN; Protocol PRN Reason: Hypoglycemia Protocol Docusate Sodium (Colace) 100 mg PO TID [facility] Last Admin: 06/10/18 18:05 Dose: 100 mg Ergocalciferol (Drisdol 50,000 Intl Units Cap) 1 cap PO Q7D [facility] Last Admin: 06/10/18 22:01 Dose: 1 cap Fluticasone/Vilanterol (Breo Ellipta 100-25 Mcg Inh) 1 puff INH RQD [facility] Last Admin: 06/10/18 07:45 Dose: 1 puff Furosemide (Lasix) 20 mg IVP DAILY [facility] Last Admin: 06/10/18 09:04 Dose: 20 mg Glucagon (Glucagen Diagnostic Kit) 0 mg IM STAT PRN; Protocol PRN Reason: Hypoglycemia Protocol Heparin Sodium (Porcine) (Heparin) 5,000 units SC Q8 [facility] Last Admin: 06/10/18 22:01 Dose: 5,000 units Dextrose (Dextrose 5% In Water 1000 Ml) 1,000 mls @ 0 mls/hr IV .Q0M PRN; Protocol PRN Reason: Hypoglycemia Protocol Doxycycline Hyclate 100 mg/ (Sodium Chloride) 100 mls @ 100 mls/hr IVPB Q12H [facility]; Protocol Last Admin: 06/10/18 12:58 Dose: 100 mls/hr Aztreonam 1 gm/ Sodium (Chloride) 100 mls @ 100 mls/hr IVPB Q12H [facility]; Protocol Last Admin: 06/10/18 18:06 Dose: 100 mls/hr Insulin Human Isoph/Insulin Regular (Novolin 70/30 (70/30 Units/Ml) 10 Ml) 7 units SC ACTID [facility] Last Admin: 06/10/18 18:05 Dose: 7 units Insulin Human Regular (Novolin R) 0 unit SC ACHS [facility]; Protocol Last Admin: 06/10/18 22:01 Dose: 3 unit Methylprednisolone (Solu-Medrol) 40 mg IVP Q6H [facility] Last Admin: 06/10/18 22:01 Dose: 40 mg Metoprolol Tartrate (Lopressor) 25 mg PO BID [facility] Last Admin: 06/10/18 18:05 Dose: 25 mg Pantoprazole Sodium (Protonix Ec Tab) 40 mg PO DAILY [facility] Last Admin: 06/10/18 09:04 Dose: 40 mg Rosuvastatin Calcium (Crestor) 5 mg PO HS [facility] Last Admin: 06/10/18 22:03 Dose: 5 mg Spironolactone (Aldactone) 25 mg PO DAILY [facility] Last Admin: 06/08/18 14:07 Dose: 25 mg - Labs Labs: 06/10/18 08:23 06/10/18 08:23 PT 12.7 SECONDS (9.7-12.2) H 06/07/18 07:23 INR 1.2 06/07/18 07:23 APTT 35 SECONDS (21-34) H 06/07/18 07:23 Assessment and Plan (1) Acute kidney injury superimposed on chronic kidney disease Status: Acute (2) CHF (congestive heart failure) Status: Acute (3) Chronic kidney disease-mineral and bone disorder Status: Acute (4) HTN (hypertension) Status: Acute (5) Pneumonia Status: Acute Attending/Attestation - Attestation I have personally seen and examined this patient.: Yes I have fully participated in the care of the patient.: Yes I have reviewed all pertinent clinical information, including history, physical exam and plan: Yes Notes (Text): Patient seen and examined; I agree with the resident's note as above with the following additions/edits: 78 yo F with history of htn, dm, CAD s/p CABG, CHF w/ systolic dysfunction, and CKD, admitted with dyspnea, nephrology following for advanced renal insufficiency; 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, renal function again worsening despite diuretics being held yesterday; likely has tubular injury superimposed on chronic diabetic kidney di sease; repeat UA not showing any hematuria/pyuria that would be suggestive of another process; relatively stable electrolyte status (mild metabolic acidosis noted); 1+ lower ext edema but otherwise stable volume status on exam despite severe systolic dysfunction and hypoxemic resp failure with patient still on high flow O2; BP well controlled, will continue current meds; -continue lasix 20 mg IV once daily; -avoid nephrotoxic agents; -increasing phoslo to 3 tabs w/ meals; 06/10/18 22:48
[2018-06-10 08:35] LABS: BASO % 0.2 % (0.0-2.0); HEMOGLOBIN 11.8 g/dL (11.0-16.0); LYMPH # 0.4 K/uL (1.0-4.3); LYMPH % 3.2 % (20.0-40.0); MEAN CELL VOLUME 90.3 fL (81.0-99.0); MEAN CORPUSCULAR HEMOGLOBIN 29.8 pg (27.0-31.0); MONO # 0.2 K/uL (0.0-0.8); MONO % 1.7 % (0.0-10.0); NEUT # 12.2 K/uL (1.8-7.0); NEUT % 94.9 % (50.0-75.0); PLATELET COUNT 282 K/uL (130-400); RBC 3.95 Mil/uL (3.80-5.20); RED CELL DISTRIBUTION WIDTH 14.8 % (11.5-14.5); WHITE BLOOD COUNT 12.8 K/uL (4.8-10.8)
[2018-06-10] MEDS: (Novolin 70/30) NPH/Regular 70/30 Units/ml 10 ml vial SC SCH ×3 (08:52→18:05)
[2018-06-10] MEDS: (Novolin R) Insulin Human Regular 100 units/ml vial SC SCH ×4 (08:52→22:01)
[2018-06-10] MEDS: Pantoprazole 40 mg EC Tab PO SCH (09:04)
[2018-06-10 09:57] LABS: LYMPHOCYTE 5 % (20-40); MONOCYTE 1 % (0-10); NEUTROPHIL 94 % (50-75); PLATELET ESTIMATE NORMAL (NORMAL); TOTAL CELLS COUNTED 100
[2018-06-10 09:58] LABS: ANISOCYTOSIS SLIGHT; HYPOCHROMIC SLIGHT; POIKILOCYTOSIS SLIGHT
[2018-06-10] MEDS ORDERED: Ergocalciferol 50,000 Intl Units Cap PO SCH (13:45)
[2018-06-10 14:39] LABS: ALB/GLOB RATIO 1.1 (1.0-2.1); ALBUMIN 3.7 g/dL (3.5-5.0); CALCIUM 9.1 mg/dl (8.6-10.4); URIC ACID 9.7 mg/dL (2.2-7.5)
[2018-06-10 22:05] LABS: SQUAMOUS EPITHIAL 1 /hpf (0-5); URINE BACTERIA RARE (<OCC); URINE BILIRUBIN NEGATIVE (NEGATIVE); URINE BLOOD NEGATIVE (NEGATIVE); URINE CLARITY Clear (Clear); URINE COLOR Yellow (YELLOW); URINE GLUCOSE (UA) 1+ mg/dL (Normal); URINE LEUKOCYTE ESTERASE NEG Leu/uL (Negative); URINE PROTEIN 2+ mg/dL (NEGATIVE); URINE UROBILINOGEN NORMAL mg/dL (0.2-1.0)
[2018-06-11] MEDS: Albuterol-Ipratrop 3 mg / 0.5 (3 ml) UD INH SCH ×6 (00:44→20:32)
[2018-06-11] MEDS: MethylPREDNISolone 40 mg Vial IVP SCH ×4 (01:11→21:39)
[2018-06-11] MEDS: Aztreonam 1 GM in Sodium Chloride 0.9% 100 ML IVPB SCH ×2 (06:02→18:00)
[2018-06-11] MEDS: (Novolin R) Insulin Human Regular 100 units/ml vial SC SCH ×4 (07:06→21:42)
[2018-06-11] MEDS: Fluticasone-Vilanterol 100/25mcg Diskus INH SCH (07:25)
[2018-06-11 07:30] LABS: BASO % 0.2 % (0.0-2.0); HEMOGLOBIN 11.9 g/dL (11.0-16.0); LYMPH # 0.3 K/uL (1.0-4.3); LYMPH % 3.4 % (20.0-40.0); MEAN CELL VOLUME 90.3 fL (81.0-99.0); MEAN CORPUSCULAR HEMOGLOBIN 30.1 pg (27.0-31.0); MEAN CORPUSCULAR HGB CONC 33.4 g/dL (33.0-37.0); MEAN PLATELET VOLUME 10.3 fL (7.2-11.7); MONO # 0.2 K/uL (0.0-0.8); MONO % 1.7 % (0.0-10.0); NEUT # 9.7 K/uL (1.8-7.0); NEUT % 94.7 % (50.0-75.0); PLATELET COUNT 277 K/uL (130-400); RBC 3.96 Mil/uL (3.80-5.20); RED CELL DISTRIBUTION WIDTH 14.8 % (11.5-14.5); WHITE BLOOD COUNT 10.2 K/uL (4.8-10.8)
[2018-06-11 09:03] LABS: LYMPHOCYTE 5 % (20-40); MONOCYTE 1 % (0-10); NEUTROPHIL 94 % (50-75); TOTAL CELLS COUNTED 100
[2018-06-11 09:04] LABS: ANISOCYTOSIS SLIGHT; PLATELET ESTIMATE NORMAL (NORMAL)
[2018-06-11 09:05] LABS: HYPOCHROMIC SLIGHT; LARGE PLATELETS PRESENT; OVALOCYTES SLIGHT; POIKILOCYTOSIS SLIGHT; POLYCHROMIC SLIGHT
[2018-06-11 09:06] LABS: TOXIC GRANULATION PRESENT
[2018-06-11] MEDS: (Novolin 70/30) NPH/Regular 70/30 Units/ml 10 ml vial SC SCH ×3 (09:06→17:46)
--- NOTE | 2018-06-11 09:55 | CP.PCM.PN ---
Subjective - Date & Time of Evaluation Date of Evaluation: 06/11/18 Time of Evaluation: 09:45 - Subjective Subjective: Patient was reported she did very well overnight however had one episode of vommitting this morning. She had a large BM yesterday and she reported abdomen feels much better until this morning The CXRAYs reportedly with the pulmonary fibrosis and she has been on the Solumedrol IV as well as Breo/Ellita inhaler, and Albuterl/Ipatropium nebulizer She remains on the vapotherm oxygen. Objective - Vital Signs/Intake and Output Vital Signs (last 24 hours): Temp Pulse Resp BP Pulse Ox 98.2 F 87 18 144/79 99 06/10/18 23:25 06/10/18 23:25 06/10/18 23:25 06/10/18 23:25 06/10/18 23:25 - Medications Medications: Current Medications Acetaminophen (Tylenol 325mg Tab) 650 mg PO Q6 PRN PRN Reason: Fever >100.4 F Acetaminophen (Tylenol 325mg Tab) 650 mg PO Q6 PRN PRN Reason: Pain, moderate (4-7) Last Admin: 06/06/18 00:55 Dose: 650 mg Albuterol/Ipratropium (Duoneb 3 Mg/0.5 Mg (3 Ml) Ud) 3 ml INH RQ4 [facility] Last Admin: 06/11/18 04:35 Dose: Not Given Aspirin (Ecotrin) 81 mg PO DAILY [facility] Last Admin: 06/10/18 09:04 Dose: 81 mg Calcium Acetate (Phoslo) 2,001 mg PO TIDCC [facility] Last Admin: 06/11/18 08:03 Dose: 2,001 mg Dextrose (Glutose 15) 0 gm PO ONCE PRN; Protocol PRN Reason: Hypoglycemia Protocol Dextrose (Dextrose 50% Inj) 0 ml IV STAT PRN; Protocol PRN Reason: Hypoglycemia Protocol Docusate Sodium (Colace) 100 mg PO TID [facility] Last Admin: 06/10/18 18:05 Dose: 100 mg Ergocalciferol (Drisdol 50,000 Intl Units Cap) 1 cap PO Q7D [facility] Last Admin: 06/10/18 22:01 Dose: 1 cap Fluticasone/Vilanterol (Breo Ellipta 100-25 Mcg Inh) 1 puff INH RQD [facility] Last Admin: 06/10/18 07:45 Dose: 1 puff Furosemide (Lasix) 20 mg IVP DAILY [facility] Last Admin: 06/10/18 09:04 Dose: 20 mg Glucagon (Glucagen Diagnostic Kit) 0 mg IM STAT PRN; Protocol PRN Reason: Hypoglycemia Protocol Heparin Sodium (Porcine) (Heparin) 5,000 units SC Q8 [facility] Last Admin: 06/11/18 06:02 Dose: 5,000 units Dextrose (Dextrose 5% In Water 1000 Ml) 1,000 mls @ 0 mls/hr IV .Q0M PRN; Protocol PRN Reason: Hypoglycemia Protocol Aztreonam 1 gm/ Sodium (Chloride) 100 mls @ 100 mls/hr IVPB Q12H [facility]; Protocol Last Admin: 06/11/18 06:02 Dose: 100 mls/hr Insulin Human Isoph/Insulin Regular (Novolin 70/30 (70/30 Units/Ml) 10 Ml) 12 units SC ACTID [facility] Insulin Human Regular (Novolin R) 0 unit SC ACHS [facility]; Protocol Last Admin: 06/11/18 07:06 Dose: Not Given Methylprednisolone (Solu-Medrol) 40 mg IVP Q6H [facility] Last Admin: 06/11/18 08:03 Dose: 40 mg Metoprolol Tartrate (Lopressor) 25 mg PO BID [facility] Last Admin: 06/10/18 18:05 Dose: 25 mg Ondansetron HCl (Zofran Inj) 4 mg IVP DAILY@ONCE PRN PRN Reason: Nausea/Vomiting Last Admin: 06/11/18 09:18 Dose: 4 mg Ondansetron HCl (Zofran Inj) 4 mg IVP Q8 PRN PRN Reason: Nausea/Vomiting Pantoprazole Sodium (Protonix Ec Tab) 40 mg PO DAILY [facility] Last Admin: 06/10/18 09:04 Dose: 40 mg Rosuvastatin Calcium (Crestor) 5 mg PO HS [facility] Last Admin: 06/10/18 22:03 Dose: 5 mg Spironolactone (Aldactone) 25 mg PO DAILY [facility] Last Admin: 06/08/18 14:07 Dose: 25 mg - Labs Labs: 06/11/18 07:01 PT 12.7 SECONDS (9.7-12.2) H 06/07/18 07:23 INR 1.2 06/07/18 07:23 APTT 35 SECONDS (21-34) H 06/07/18 07:23 - Constitutional Appears: Cachectic, Chronically Ill - Head Exam Head Exam: NORMAL INSPECTION, NORMOCEPHALIC - Eye Exam Eye Exam: EOMI, Normal appearance - ENT Exam ENT Exam: Mucous Membranes Moist - Cardiovascular Exam Cardiovascular Exam: REGULAR RHYTHM - GI/Abdominal Exam GI & Abdominal Exam: Soft. absent: Guarding, Rigid, Tenderness - Neurological Exam Neurological Exam: Alert, Awake, Oriented x3 Neuro motor strength exam: Left Upper Extremity: 5, Right Upper Extremity: 5 - Psychiatric Exam Psychiatric exam: Normal Affect, Normal Mood - Skin Skin Exam: Normal Color, Warm Assessment and Plan - Assessment and Plan (Free Text) Assessment: 78 year old female with PMHx of CAD (CABG 2014), HTN, T2DM, COPD, and osteoporosis, presenting for evaluation of SOB, and admitted for treatment of an acute CHF exacerbation. Plan: Chronic Interstial Lung disease / granulomatosis or sarcordosis 06/11: Remains on the IV solumedrol, Breo Ellipta Inhaler, Albuterol Ipatropium nebulizer treatments. She remains on the Vapotherm Hiflo O2 The CXRAY yesterday reported chronic interstital lung disease, the pleural effusion was resolved. Chest CT 06/06/18: moderate to large right pleural effusion; opacities in left upper lobe; calcified granuloma and hilar lymphadenopathy likely due to prior granulomatosis or sarcoidosis Suspected CAP, Pleural effusion 06/11: So far cultures have remained negative, the pleural cultures are negative as well. Afebrile Currently on Doxycylcine and Aztrenam, we let the doxycycline fall off for now. CXR: Diffuse increased interstitial airspace opacities suggestive for ed luis/infiltrate, superimposed confluent consolidative changes in left mid to lower lung, and right lung apex and base CT chest:Markedly limited study degraded by motion artifact. The evaluation is also limited without IV contrast administration. Round consolidation versus localized pleural effusion noted at the medial aspect of the right upper chest. Reticular opacities and ground-glass opacities are noted in the upper lobes larger on the left. Moderate to large right pleural effusion. Calcified granuloma and calcified mediastinal and hilar lymphadenopathy are again noted. Findings likely due to prior granulomatosis disease or sarcoidosis. Moderate cardiomegaly. Vapotherm PRN, not tolerating BiPAP Sputum cx negative for mycobacteria Tylenol prn fever Aztreonam and Doxy SCOUT on Chronic disease 06/11: Per nephrology renal function worseing due to diuretics Creatinine is 1.7 on admission, worsening, 3.0 today She is on Phoslo, the lasix was changed from IV to PO once a day The renal ultrasound was negative for obstruction, negative hydronephrosis CHF exacerbation, acute on chronic Echo 2014: Grade IV restrictive diastolic dysfunction and systolic dysfunction echo(06/2018): EF 20%, PFO, mod MR, calcified AV, LA dilation Troponins negative x3, BNP is 7020 on admission Lasix 20mg IVP daily Lopressor 25mg PO BID Hold CARMEL/ARb pending improved renal function ASA 81mg Spironolactone 25mg po QD-held Cardiology, Dr. Huerta, consulted, no cardiac intervention at this time, c/w medical management Constipation 06/11: She reports having a BIG bowel movement last night on 06/10 and reported a lot of relief DM2 06/11: Reviewed accuchecks - her 70/30 Novolin Insulin was increased to 12 units Accucheck ACHS ISS medium ACHS Hx of HTN Continue to monitor, add CARMEL if Cr stable, otherwise maybe Hydralazine Suspected UTI, resolved UA contaminated Urine cx negative PPX PT/OT eval GI ppx: protonix 40 mg PO daily, 2/ IVCCS VTE ppx: Heparin 5000 sc q8, SCDs CCD/HHD
[2018-06-11] MEDS: Pantoprazole 40 mg EC Tab PO SCH ×2 (10:12→12:17)
[2018-06-11 10:34] LABS: ALBUMIN 3.4 g/dL (3.5-5.0); CALCIUM 9.3 mg/dl (8.6-10.4)
--- NOTE | 2018-06-11 18:50 | CP.PCM.PN ---
Subjective - Date & Time of Evaluation Date of Evaluation: 06/11/18 Time of Evaluation: 16:00 - Subjective Subjective: Reports breathing improved, off high flow O2 and on nasal cannula; vomiting today that she attributes to "blue and white" pill; Objective - Vital Signs/Intake and Output Vital Signs (last 24 hours): Temp Pulse Resp BP Pulse Ox 97.5 F L 100 H 18 149/80 100 06/11/18 15:00 06/11/18 16:31 06/11/18 15:00 06/11/18 17:45 06/11/18 15:00 - Medications Medications: Current Medications Acetaminophen (Tylenol 325mg Tab) 650 mg PO Q6 PRN PRN Reason: Fever >100.4 F Acetaminophen (Tylenol 325mg Tab) 650 mg PO Q6 PRN PRN Reason: Pain, moderate (4-7) Last Admin: 06/06/18 00:55 Dose: 650 mg Albuterol/Ipratropium (Duoneb 3 Mg/0.5 Mg (3 Ml) Ud) 3 ml INH RQ4 [facility] Last Admin: 06/11/18 17:03 Dose: 3 ml Aspirin (Ecotrin) 81 mg PO DAILY [facility] Last Admin: 06/11/18 12:17 Dose: 81 mg Calcium Acetate (Phoslo) 2,001 mg PO TIDCC [facility] Last Admin: 06/11/18 11:45 Dose: Not Given Dextrose (Glutose 15) 0 gm PO ONCE PRN; Protocol PRN Reason: Hypoglycemia Protocol Dextrose (Dextrose 50% Inj) 0 ml IV STAT PRN; Protocol PRN Reason: Hypoglycemia Protocol Docusate Sodium (Colace) 100 mg PO TID [facility] Last Admin: 06/10/18 18:05 Dose: 100 mg Ergocalciferol (Drisdol 50,000 Intl Units Cap) 1 cap PO Q7D [facility] Last Admin: 06/10/18 22:01 Dose: 1 cap Fluticasone/Vilanterol (Breo Ellipta 100-25 Mcg Inh) 1 puff INH RQD [facility] Last Admin: 06/11/18 07:25 Dose: 1 puff Furosemide (Lasix) 20 mg IVP DAILY [facility] Last Admin: 06/11/18 12:17 Dose: 20 mg Glucagon (Glucagen Diagnostic Kit) 0 mg IM STAT PRN; Protocol PRN Reason: Hypoglycemia Protocol Heparin Sodium (Porcine) (Heparin) 5,000 units SC Q8 [facility] Last Admin: 06/11/18 13:50 Dose: 5,000 units Dextrose (Dextrose 5% In Water 1000 Ml) 1,000 mls @ 0 mls/hr IV .Q0M PRN; Protocol PRN Reason: Hypoglycemia Protocol Aztreonam 1 gm/ Sodium (Chloride) 100 mls @ 100 mls/hr IVPB Q12H [facility]; Protocol Last Admin: 06/11/18 06:02 Dose: 100 mls/hr Insulin Human Isoph/Insulin Regular (Novolin 70/30 (70/30 Units/Ml) 10 Ml) 12 units SC ACTID [facility] Last Admin: 06/11/18 17:46 Dose: 12 unit Insulin Human Regular (Novolin R) 0 unit SC ACHS [facility]; Protocol Last Admin: 06/11/18 17:45 Dose: 8 unit Methylprednisolone (Solu-Medrol) 40 mg IVP Q6H [facility] Last Admin: 06/11/18 13:50 Dose: 40 mg Metoprolol Tartrate (Lopressor) 25 mg PO BID [facility] Last Admin: 06/11/18 17:45 Dose: 25 mg Ondansetron HCl (Zofran Inj) 4 mg IVP DAILY@ONCE PRN PRN Reason: Nausea/Vomiting Last Admin: 06/11/18 09:18 Dose: 4 mg Ondansetron HCl (Zofran Inj) 4 mg IVP Q8 PRN PRN Reason: Nausea/Vomiting Pantoprazole Sodium (Protonix Ec Tab) 40 mg PO DAILY [facility] Last Admin: 06/11/18 12:17 Dose: 40 mg Rosuvastatin Calcium (Crestor) 5 mg PO HS [facility] Last Admin: 06/10/18 22:03 Dose: 5 mg Spironolactone (Aldactone) 25 mg PO DAILY [facility] Last Admin: 06/08/18 14:07 Dose: 25 mg - Labs Labs: 06/11/18 07:01 06/11/18 07:01 PT 12.7 SECONDS (9.7-12.2) H 06/07/18 07:23 INR 1.2 06/07/18 07:23 APTT 35 SECONDS (21-34) H 06/07/18 07:23 - Constitutional Appears: Non-toxic, No Acute Distress - Eye Exam Eye Exam: Normal appearance - Respiratory Exam Respiratory Exam: absent: Respiratory Distress Additional comments: wheezing much improved; - Cardiovascular Exam Cardiovascular Exam: RRR, +S1, +S2. absent: Gallop, Rubs - GI/Abdominal Exam GI & Abdominal Exam: Soft. absent: Distended, Tenderness - Extremities Exam Additional comments: bilateral lower leg edema L >> R; - Neurological Exam Neurological Exam: Alert, Awake - Psychiatric Exam Psychiatric exam: Normal Affect, Normal Mood. absent: Agitated - Skin Skin Exam: Warm. 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; likely with underlying diabetic kidney disease with some degree of superimposed ATN, renal function now improving; stable electrolyte status; will keep on gentle diuresis given severe systolic CHF (currently stable volume status); -avoid nephrotoxic agents; -continue lasix 20 mg IVP daily; -will d/c phoslo (possibly causing her nausea/vomiting); -awaiting 24 hr UPEP; Status: Acute (2) CHF (congestive heart failure) Assessment & Plan: See above; continue to optimize with B-blockers; continue to hold CARMEL inhibitor/ARB and aldactone until renal function close to baseline; Status: Acute (3) Chronic kidney disease-mineral and bone disorder Assessment & Plan: Holding phos binder for now, will re-assess once renal function closer to baseline; continue ergocalciferol 50,000 u weekly; Status: Acute (4) HTN (hypertension) Assessment & Plan: BP controlled, continue current meds; Status: Acute (5) Pneumonia Assessment & Plan: Continue to dose antibiotics for CrCl < 20 ml/min; Status: Acute
[2018-06-12] MEDS: Albuterol-Ipratrop 3 mg / 0.5 (3 ml) UD INH SCH ×6 (00:08→19:22)
[2018-06-12] MEDS: MethylPREDNISolone 40 mg Vial IVP SCH ×4 (02:07→20:03)
[2018-06-12] MEDS: Aztreonam 1 GM in Sodium Chloride 0.9% 100 ML IVPB SCH ×2 (05:40→17:35)
[2018-06-12] MEDS: Fluticasone-Vilanterol 100/25mcg Diskus INH SCH (07:30)
[2018-06-12] MEDS: (Novolin R) Insulin Human Regular 100 units/ml vial SC SCH ×4 (07:39→21:51)
[2018-06-12 08:00] LABS: BASO % 0.3 % (0.0-2.0); LYMPH # 0.3 K/uL (1.0-4.3); MEAN CELL VOLUME 89.9 fL (81.0-99.0); MEAN CORPUSCULAR HEMOGLOBIN 29.3 pg (27.0-31.0); MEAN CORPUSCULAR HGB CONC 32.6 g/dL (33.0-37.0); MEAN PLATELET VOLUME 10.3 fL (7.2-11.7); MONO # 0.2 K/uL (0.0-0.8); MONO % 2.4 % (0.0-10.0); NEUT # 8.6 K/uL (1.8-7.0); NEUT % 94.3 % (50.0-75.0); PLATELET COUNT 273 K/uL (130-400); RBC 4.07 Mil/uL (3.80-5.20); RED CELL DISTRIBUTION WIDTH 14.6 % (11.5-14.5); WHITE BLOOD COUNT 9.1 K/uL (4.8-10.8)
[2018-06-12 08:13] LABS: ALBUMIN 3.3 g/dL (3.5-5.0); CALCIUM 9.3 mg/dl (8.6-10.4)
[2018-06-12] MEDS: (Novolin 70/30) NPH/Regular 70/30 Units/ml 10 ml vial SC SCH ×3 (08:28→16:37)
--- NOTE | 2018-06-12 08:30 | CP.PCM.PN ---
Subjective - Date & Time of Evaluation Date of Evaluation: 06/12/18 Time of Evaluation: 09:45 - Subjective Subjective: Patient examined in room, sitting in chair. Pt reports she had a difficult night as she was vomiting which she believes is due to some of her medications she takes with meals. Pt then reports her chest was sore from all the retching. Pt also reports itching all over her body at night. Patient denies chest pressure, SOB, diarrhea. Pt reports her nausea is well controlled with antiemetic, and thus discussion was had regarding giving the medication 30 minutes before meals. Objective - Vital Signs/Intake and Output Vital Signs (last 24 hours): Temp Pulse Resp BP Pulse Ox 97.6 F 97 H 18 153/81 H 100 06/12/18 07:00 06/12/18 07:54 06/12/18 07:00 06/12/18 07:00 06/12/18 07:00 - Medications Medications: Current Medications Acetaminophen (Tylenol 325mg Tab) 650 mg PO Q6 PRN PRN Reason: Fever >100.4 F Acetaminophen (Tylenol 325mg Tab) 650 mg PO Q6 PRN PRN Reason: Pain, moderate (4-7) Last Admin: 06/06/18 00:55 Dose: 650 mg Albuterol/Ipratropium (Duoneb 3 Mg/0.5 Mg (3 Ml) Ud) 3 ml INH RQ4 [facility] Last Admin: 06/12/18 03:24 Dose: 3 ml Aspirin (Ecotrin) 81 mg PO DAILY [facility] Last Admin: 06/11/18 12:17 Dose: 81 mg Calcium Acetate (Phoslo) 2,001 mg PO TIDCC [facility] Last Admin: 06/11/18 11:45 Dose: Not Given Dextrose (Glutose 15) 0 gm PO ONCE PRN; Protocol PRN Reason: Hypoglycemia Protocol Dextrose (Dextrose 50% Inj) 0 ml IV STAT PRN; Protocol PRN Reason: Hypoglycemia Protocol Docusate Sodium (Colace) 100 mg PO TID [facility] Last Admin: 06/10/18 18:05 Dose: 100 mg Ergocalciferol (Drisdol 50,000 Intl Units Cap) 1 cap PO Q7D [facility] Last Admin: 06/10/18 22:01 Dose: 1 cap Fluticasone/Vilanterol (Breo Ellipta 100-25 Mcg Inh) 1 puff INH RQD [facility] Last Admin: 06/11/18 07:25 Dose: 1 puff Furosemide (Lasix) 20 mg IVP DAILY [facility] Last Admin: 06/11/18 12:17 Dose: 20 mg Glucagon (Glucagen Diagnostic Kit) 0 mg IM STAT PRN; Protocol PRN Reason: Hypoglycemia Protocol Heparin Sodium (Porcine) (Heparin) 5,000 units SC Q8 [facility] Last Admin: 06/12/18 05:31 Dose: 5,000 units Dextrose (Dextrose 5% In Water 1000 Ml) 1,000 mls @ 0 mls/hr IV .Q0M PRN; Protocol PRN Reason: Hypoglycemia Protocol Aztreonam 1 gm/ Sodium (Chloride) 100 mls @ 100 mls/hr IVPB Q12H [facility]; Protocol Last Admin: 06/12/18 05:40 Dose: 100 mls/hr Insulin Human Isoph/Insulin Regular (Novolin 70/30 (70/30 Units/Ml) 10 Ml) 12 units SC ACTID [facility] Last Admin: 06/12/18 08:28 Dose: 12 unit Insulin Human Regular (Novolin R) 0 unit SC ACHS [facility]; Protocol Last Admin: 06/12/18 07:39 Dose: Not Given Methylprednisolone (Solu-Medrol) 40 mg IVP Q6H [facility] Last Admin: 06/12/18 08:28 Dose: 40 mg Metoprolol Tartrate (Lopressor) 25 mg PO BID [facility] Last Admin: 06/11/18 17:45 Dose: 25 mg Ondansetron HCl (Zofran Inj) 4 mg IVP DAILY@ONCE PRN PRN Reason: Nausea/Vomiting Last Admin: 06/11/18 09:18 Dose: 4 mg Ondansetron HCl (Zofran Inj) 4 mg IVP Q8 PRN PRN Reason: Nausea/Vomiting Pantoprazole Sodium (Protonix Ec Tab) 40 mg PO DAILY [facility] Last Admin: 06/11/18 12:17 Dose: 40 mg Rosuvastatin Calcium (Crestor) 5 mg PO HS [facility] Last Admin: 06/11/18 21:42 Dose: 5 mg Spironolactone (Aldactone) 25 mg PO DAILY [facility] Last Admin: 06/08/18 14:07 Dose: 25 mg - Labs Labs: 06/12/18 07:52 06/12/18 07:52 PT 12.7 SECONDS (9.7-12.2) H 06/07/18 07:23 INR 1.2 06/07/18 07:23 APTT 35 SECONDS (21-34) H 06/07/18 07:23 - Constitutional Appears: Non-toxic, No Acute Distress - Head Exam Head Exam: ATRAUMATIC, NORMAL INSPECTION, NORMOCEPHALIC - Eye Exam Eye Exam: EOMI, Normal appearance - ENT Exam ENT Exam: Mucous Membranes Moist, Normal Exam - Neck Exam Neck Exam: Normal Inspection - Respiratory Exam Respiratory Exam: NORMAL BREATHING PATTERN. absent: Accessory Muscle Use, Chest Wall Tenderness, Rales, Rhonchi, Wheezes Additional comments: vertical sternotomy scar well healed - Cardiovascular Exam Cardiovascular Exam: Tachycardia, REGULAR RHYTHM - GI/Abdominal Exam GI & Abdominal Exam: Soft, Tenderness, Normal Bowel Sounds. absent: Distended - Extremities Exam Extremities Exam: Normal Inspection. absent: Calf Tenderness, Pedal Edema - Neurological Exam Neurological Exam: Alert, Awake, Normal Gait, Oriented x3 - Psychiatric Exam Psychiatric exam: Normal Affect, Normal Mood - Skin Skin Exam: Dry, Intact, Normal Color, Warm. absent: Rash Assessment and Plan - Assessment and Plan (Free Text) Assessment: 78 year old female with PMHx of CAD (CABG 2014), HTN, T2DM, COPD, and osteoporosis, presenting for evaluation of SOB, and admitted for treatment of an acute CHF exacerbation. Plan: R/O ACS Troponins elevated, likely 2/2 CHF and SCOUT EKG shows no acute changes Continue to monitor symptomatically CHF exacerbation, acute on chronic Echo 2015: Grade IV restrictive diastolic dysfunction and systolic dysfunction echo(06/2018): EF 20%, PFO, mod MR, calcified AV, LA dilation Troponins negative x3, BNP is 7020 on admission Lasix 20mg IVP QD Lopressor 25mg PO BID Hold CARMEL/ARb pending improved renal function ASA 81mg Spironolactone 25mg po QD-held Cardiology, Dr. Huerta, consulted, no cardiac intervention at this time, c/w medical management Suspected CAP CXR: Diffuse increased interstitial airspace opacities suggestive for edema/infiltrate, superimposed confluent consolidative changes in left mid to l ower lung, and right lung apex and base CT chest:Markedly limited study degraded by motion artifact. The evaluation is also limited without IV contrast administration. Round consolidation versus loca lized pleural effusion noted at the medial aspect of the right upper chest. Reticular opacities and ground-glass opacities are noted in the upper lobes larger on the left. Moderate to large right pleural effusion. Calcified granuloma and calcified mediastinal and hilar lymphadenopathy are again noted. Findings likely due to prior granulomatosis disease or sarcoidosis. Moderate cardiomegaly. Maintaining spO2 on NC, Vapotherm d/c-ed Sputum cx negative for mycobacteria Tylenol prn fever Continue Aztreonam 1g q12h, Doxy completed Solu-medrol 40mg IV Q6H Duonebs q4h Breo-Ellipta Pulmonology, Dr. High CAD CABG 2014 ASA 81mg po QD Crestor 5mg PO QD SCOUT Creatinine improving at 2.5 today Consider adding CARMEL pending Cr Nephro, Dr. Rader Hyperphosphatemia, improving 6.1 today-Phoslo 2,001 mg po-held DM2 Accucheck ACHS ISS medium ACHS Novolin 12 ACTID, elevated 2/2 IVCCS Hypoglycemia protocol Nausea/Vomiting Zofran 4mg IV Q6H prn Nursing communication to give 30 min pre-meals Hx of HTN Continue to monitor, add CARMEL if Cr stable, otherwise maybe Hydralazine Suspected UTI, resolved UA contaminated Urine cx negative Constipation, resolved Docusate 100mg PO TID-held PPX PT/OT eval GI ppx: protonix 40 mg PO daily, 2/2 IVCCS VTE ppx: Heparin 5000 sc q8, SCDs CCD/HHD Dispo: Patient is improving, consider spO2 walk test to see if pt can maintain saturation off O2 Case discussed w/ Dr. Alonzo -Kathy Rivera, PGY-1
[2018-06-12 08:34] LABS: CK-MB 3.51 ng/mL (0.0-3.38); TROPONIN I 0.154 ng/mL (0.00-0.120)
[2018-06-12 09:14] LABS: CREATININE, 24 HOUR URINE 0.48 g/24 h (0.50-2.15)
[2018-06-12] MEDS: Pantoprazole 40 mg EC Tab PO SCH (09:21)
[2018-06-12 11:30] LABS: LYMPHOCYTE 2 % (20-40); MONOCYTE 2 % (0-10); NEUTROPHIL 96 % (50-75); PLATELET ESTIMATE NORMAL (NORMAL); TOTAL CELLS COUNTED 100
[2018-06-12 11:31] LABS: ANISOCYTOSIS SLIGHT; OVALOCYTES SLIGHT; POIKILOCYTOSIS SLIGHT
[2018-06-12 11:32] LABS: HYPOCHROMIC SLIGHT; LARGE PLATELETS PRESENT; POLYCHROMIC SLIGHT; TOXIC GRANULATION PRESENT
[2018-06-12 11:33] LABS: GIANT PLATELETS PRESENT
[2018-06-13] MEDS: Albuterol-Ipratrop 3 mg / 0.5 (3 ml) UD INH SCH ×6 (00:01→19:13)
[2018-06-13] MEDS: MethylPREDNISolone 40 mg Vial IVP SCH ×4 (01:28→21:09)
[2018-06-13] MEDS: Aztreonam 1 GM in Sodium Chloride 0.9% 100 ML IVPB SCH ×2 (05:06→18:07)
[2018-06-13] MEDS: (Novolin R) Insulin Human Regular 100 units/ml vial SC SCH ×4 (07:24→21:44)
--- NOTE | 2018-06-13 07:40 | CP.PCM.PN ---
Subjective - Date & Time of Evaluation Date of Evaluation: 06/13/18 Time of Evaluation: 07:39 - Subjective Subjective: PGY-1 Medicine Progress Note for Dr. Venegas Patient seen and examined at bedside this AM. No acute overnight events reported. Shortness of breath is improved on NC. Also complains of bloating sensation in belly, but denies any constipation or difficulties going to bathroom. No fevers/chills, headaches, dizziness, chest pain, palpitations, cough, abdominal pain, n/v/d/c, dysuria. Objective - Vital Signs/Intake and Output Vital Signs (last 24 hours): Temp Pulse Resp BP Pulse Ox 97.5 F L 85 20 154/77 H 100 06/12/18 23:53 06/12/18 23:53 06/12/18 23:53 06/12/18 23:53 06/12/18 23:53 Intake and Output: 06/13/18 06/13/18 06:59 18:59 Intake Total 400 Balance 400 - Medications Medications: Current Medications Acetaminophen (Tylenol 325mg Tab) 650 mg PO Q6 PRN PRN Reason: Fever >100.4 F Acetaminophen (Tylenol 325mg Tab) 650 mg PO Q6 PRN PRN Reason: Pain, moderate (4-7) Last Admin: 06/06/18 00:55 Dose: 650 mg Albuterol/Ipratropium (Duoneb 3 Mg/0.5 Mg (3 Ml) Ud) 3 ml INH RQ4 [facility] Last Admin: 06/13/18 03:17 Dose: 3 ml Aspirin (Ecotrin) 81 mg PO DAILY [facility] Last Admin: 06/12/18 09:21 Dose: 81 mg Calcium Acetate (Phoslo) 2,001 mg PO TIDCC [facility] Last Admin: 06/11/18 11:45 Dose: Not Given Dextrose (Glutose 15) 0 gm PO ONCE PRN; Protocol PRN Reason: Hypoglycemia Protocol Dextrose (Dextrose 50% Inj) 0 ml IV STAT PRN; Protocol PRN Reason: Hypoglycemia Protocol Docusate Sodium (Colace) 100 mg PO TID [facility] Last Admin: 06/10/18 18:05 Dose: 100 mg Ergocalciferol (Drisdol 50,000 Intl Units Cap) 1 cap PO Q7D [facility] Last Admin: 06/10/18 22:01 Dose: 1 cap Fluticasone/Vilanterol (Breo Ellipta 100-25 Mcg Inh) 1 puff INH RQD [facility] Last Admin: 06/12/18 07:30 Dose: 1 puff Furosemide (Lasix) 20 mg IVP DAILY [facility] Last Admin: 06/12/18 09:22 Dose: 20 mg Glucagon (Glucagen Diagnostic Kit) 0 mg IM STAT PRN; Protocol PRN Reason: Hypoglycemia Protocol Heparin Sodium (Porcine) (Heparin) 5,000 units SC Q8 [facility] Last Admin: 06/13/18 05:05 Dose: 5,000 units Dextrose (Dextrose 5% In Water 1000 Ml) 1,000 mls @ 0 mls/hr IV .Q0M PRN; Protocol PRN Reason: Hypoglycemia Protocol Aztreonam 1 gm/ Sodium (Chloride) 100 mls @ 100 mls/hr IVPB Q12H [facility]; Protocol Last Admin: 06/13/18 05:06 Dose: 100 mls/hr Insulin Human Isoph/Insulin Regular (Novolin 70/30 (70/30 Units/Ml) 10 Ml) 12 units SC ACTID [facility] Last Admin: 06/12/18 16:37 Dose: 12 unit Insulin Human Regular (Novolin R) 0 unit SC ACHS [facility]; Protocol Last Admin: 06/13/18 07:24 Dose: Not Given Methylprednisolone (Solu-Medrol) 40 mg IVP Q6H [facility] Last Admin: 06/13/18 01:28 Dose: 40 mg Metoprolol Tartrate (Lopressor) 25 mg PO BID [facility] Last Admin: 06/12/18 17:41 Dose: 25 mg Ondansetron HCl (Zofran Inj) 4 mg IVP DAILY@ONCE PRN PRN Reason: Nausea/Vomiting Last Admin: 06/11/18 09:18 Dose: 4 mg Ondansetron HCl (Zofran Inj) 4 mg IVP Q6H PRN PRN Reason: Nausea/Vomiting Pantoprazole Sodium (Protonix Ec Tab) 40 mg PO DAILY [facility] Last Admin: 06/12/18 09:21 Dose: 40 mg Rosuvastatin Calcium (Crestor) 5 mg PO HS [facility] Last Admin: 06/12/18 21:49 Dose: 5 mg Spironolactone (Aldactone) 25 mg PO DAILY [facility] Last Admin: 06/08/18 14:07 Dose: 25 mg - Labs Labs: 06/12/18 07:52 06/12/18 07:52 PT 12.7 SECONDS (9.7-12.2) H 06/07/18 07:23 INR 1.2 06/07/18 07:23 APTT 35 SECONDS (21-34) H 06/07/18 07:23 - Constitutional Appears: Non-toxic, No Acute Distress - Head Exam Head Exam: ATRAUMATIC, NORMAL INSPECTION, NORMOCEPHALIC - Eye Exam Eye Exam: EOMI, Normal appearance, PERRL Pupil Exam: NORMAL ACCOMODATION - ENT Exam ENT Exam: Mucous Membranes Moist, Normal Exam - Neck Exam Neck Exam: Full ROM, Normal Inspection. absent: Tenderness - Respiratory Exam Respiratory Exam: Clear to Ausculation Bilateral, NORMAL BREATHING PATTERN. absent: Accessory Muscle Use, Rales, Rhonchi, Wheezes, Respiratory Distress, Stridor - Cardiovascular Exam Cardiovascular Exam: REGULAR RHYTHM, +S1, +S2 - GI/Abdominal Exam GI & Abdominal Exam: Soft, Normal Bowel Sounds. absent: Distended, Firm, Guarding, Rigid, Tenderness, Rebound - Extremities Exam Extremities Exam: Full ROM, Normal Capillary Refill, Normal Inspection, Pedal Edema (b/l pitting edema). absent: Calf Tenderness - Neurological Exam Neurological Exam: Alert, Awake, Normal Gait, Oriented x3 - Psychiatric Exam Psychiatric exam: Normal Affect, Normal Mood - Skin Skin Exam: Dry, Intact, Normal Color, Warm Assessment and Plan - Assessment and Plan (Free Text) Assessment: 78 year old female with PMHx of CAD (CABG 2014), HTN, T2DM, COPD, and osteoporosis, presenting for evaluation of SOB, and admitted for treatment of an acute CHF exacerbation. Plan: CHF exacerbation, acute on chronic -Echo (2014): Grade IV restrictive diastolic dysfunction and systolic dysfunction -Echo (06/05): EF 20%, PFO, mod MR, calcified AV, LA dilation -Trop series x3 negative -BNP is 7020 on admission -Lasix 20mg IVP daily -Lopressor 25mg PO BID -ASA 81 mg PO daily -CARMEL/ARb, Aldactone held pending improved renal function per Nephro recs -Cardiology (Dr. Huerta) recs appreciated - no cardiac intervention at this time, c/w medical management Suspected CAP -Imaging -CXR: Diffuse increased interstitial airspace opacities suggestive for edema/infiltrate, superimposed confluent consolidative changes in left mid to lower lung, and right lung apex and base -CT chest: Markedly limited study degraded by motion artifact. The evaluation is also limited without IV contrast administration. Round consolidation versus localized pleural effusion noted at the medial aspect of the right upper chest. Reticular opacities and ground-glass opacities are noted in the upper lobes larger on the left. Moderate to large right pleural effusion. Calcified granuloma and calcified mediastinal and hilar lymphadenopathy are again noted. Findings likely due to prior granulomatosis disease or sarcoidosis. Moderate cardiomegaly. -Maintaining spO2 on NC, -Sputum cx negative for mycobacteria -Tylenol prn fever -c/w Aztreonam 1g q12h, -Solu-medrol 40mg IV Q6H -Duonebs q4h -Breo-Ellipta -Pulmonology, Dr. High CAD -CABG 2014 -ASA 81mg po QD -Crestor 5mg PO QD SCOUT -Cr 2.5, downtrending. Continue to monitor -Consider adding ACEi pending improved renal function -Nephro (Dr. Rader) recs appreciated -hyperphosphatemia, improved; Phoslo held per Nephro DM -ISS medium -Novolin 12 ACTID -accucheck ACHS -hypoglycemia protocol Nausea/Vomiting -Zofran 4mg IV Q6H prn -Nursing communication to give 30 min pre-meals HTN -Continue to monitor, add CARMEL if Cr stable, otherwise maybe Hydralazine Suspected UTI, resolved -UA contaminated -Urine cx negative Constipation, resolved -Docusate 100mg PO TID-held PPx, Diet, Disposition -DVT ppx: scds, heparin 5000 units SC -GI ppx: protonix 40 mg PO daily -Diet: HHD -PT/OT eval -Dispo: patient not currently maintaining saturation off O2 on walk test. F/u PT. Case discussed with Dr. Theo Alex DO, PGY-1
[2018-06-13] MEDS: Fluticasone-Vilanterol 100/25mcg Diskus INH SCH (07:46)
[2018-06-13] MEDS: (Novolin 70/30) NPH/Regular 70/30 Units/ml 10 ml vial SC SCH ×3 (08:00→17:05)
[2018-06-13 08:19] LABS: BASO % 0.2 % (0.0-2.0); HEMOGLOBIN 12.3 g/dL (11.0-16.0); LYMPH # 0.3 K/uL (1.0-4.3); MEAN CELL VOLUME 90.4 fL (81.0-99.0); MEAN CORPUSCULAR HEMOGLOBIN 30.1 pg (27.0-31.0); MEAN CORPUSCULAR HGB CONC 33.3 g/dL (33.0-37.0); MEAN PLATELET VOLUME 10.4 fL (7.2-11.7); MONO # 0.2 K/uL (0.0-0.8); MONO % 2.4 % (0.0-10.0); NEUT # 8.9 K/uL (1.8-7.0); NEUT % 94.4 % (50.0-75.0); PLATELET COUNT 275 K/uL (130-400); WHITE BLOOD COUNT 9.4 K/uL (4.8-10.8)
[2018-06-13 08:30] LABS: ALBUMIN 3.3 g/dL (3.5-5.0); CALCIUM 9.1 mg/dl (8.6-10.4)
[2018-06-13 10:43] LABS: ANISOCYTOSIS SLIGHT; LYMPHOCYTE 3 % (20-40); MONOCYTE 1 % (0-10); NEUTROPHIL 96 % (50-75); PLATELET ESTIMATE NORMAL (NORMAL); TOTAL CELLS COUNTED 100
[2018-06-13] MEDS: Pantoprazole 40 mg EC Tab PO SCH (10:50)
--- NOTE | 2018-06-13 14:23 | CARD ---
APPROVED REPORT Date of service: 06/11/2018 EKG Measurement Heart [id number] <Conclusion> Sinus rhythm with occasional premature ventricular complexes Biatrial enlargement Cannot rule out Inferior infarct, age undetermined Anterior infarct, age undetermined Abnormal ECG
--- NOTE | 2018-06-13 17:51 | CP.PCM.PN ---
Subjective - Date & Time of Evaluation Date of Evaluation: 06/13/18 Time of Evaluation: 11:00 - Subjective Subjective: Patient seen and examined at bedside. Patient stated SOB, wheezing and cough improving. Patient complained of chest tightness. Patient denied chest pain, fever, chills, palpitations, nausea, vomiting, diarrhea. Physical Exam Gen: alert and awake and oriented x3, no acute distress Cardio: RRR, no murmur Pulm: diminished air movement, wheezing, no accessory muscle use GI: soft, nontender A and P 1. Pleural effusion - Most likely secondary to CHF exacerbation - Chest x-ray 06/09/18: stable; RUL faint nodular changes; chronic interstitial pulm disease and limited patchy density mid left lung zone laterally - Chest x-ray 06/08/18: no pneumothorax, improving aeration RLL - Chest x-ray 06/06/18: moderate right and small left pleural effusion; status post median sternotomy; b/l pleural effusion - Chest CT 06/06/18: moderate to large right pleural effusion; opacities in left upper lobe; calcified granuloma and hilar lymphadenopathy likely due to prior granulomatosis or sarcoidosis - Thoracentesis 06/07/18 by IR for small right effusion seen on u/s: 250cc straw- colored fluid removed - Pleural fluid gram stain 06/07/18: few WBCs, no organisms seen - Pleural fluid culture 06/07/18: no growth to date; no anaerobes isolated - Blood culture 06/05/18: no growth to date - Continue Duoneb 3ml rq4 - Continue Solu-medrol - Continue Fluticasone/Vilanterol - Continue Lasix 20 mg BID - Continue aztreonam 2. CHF exacerbation -Cardio consulted -Continue medications Objective - Vital Signs/Intake and Output Vital Signs (last 24 hours): Temp Pulse Resp BP Pulse Ox 97.8 F 94 H 18 145/80 100 06/13/18 15:00 06/13/18 16:00 06/13/18 15:00 06/13/18 15:00 06/13/18 15:00 Intake and Output: 06/13/18 06/13/18 06:59 18:59 Intake Total 400 Balance 400 - Medications Medications: Current Medications Acetaminophen (Tylenol 325mg Tab) 650 mg PO Q6 PRN PRN Reason: Fever >100.4 F Acetaminophen (Tylenol 325mg Tab) 650 mg PO Q6 PRN PRN Reason: Pain, moderate (4-7) Last Admin: 06/06/18 00:55 Dose: 650 mg Albuterol/Ipratropium (Duoneb 3 Mg/0.5 Mg (3 Ml) Ud) 3 ml INH RQ4 [facility] Last Admin: 06/13/18 11:17 Dose: 3 ml Aspirin (Ecotrin) 81 mg PO DAILY [facility] Last Admin: 06/13/18 10:49 Dose: 81 mg Calcium Acetate (Phoslo) 2,001 mg PO TIDCC [facility] Last Admin: 06/11/18 11:45 Dose: Not Given Dextrose (Glutose 15) 0 gm PO ONCE PRN; Protocol PRN Reason: Hypoglycemia Protocol Dextrose (Dextrose 50% Inj) 0 ml IV STAT PRN; Protocol PRN Reason: Hypoglycemia Protocol Docusate Sodium (Colace) 100 mg PO TID [facility] Last Admin: 06/10/18 18:05 Dose: 100 mg Ergocalciferol (Drisdol 50,000 Intl Units Cap) 1 cap PO Q7D [facility] Last Admin: 06/10/18 22:01 Dose: 1 cap Fluticasone/Vilanterol (Breo Ellipta 100-25 Mcg Inh) 1 puff INH RQD [facility] Last Admin: 06/13/18 07:46 Dose: 1 puff Furosemide (Lasix) 20 mg IVP DAILY [facility] Last Admin: 06/13/18 10:48 Dose: 20 mg Glucagon (Glucagen Diagnostic Kit) 0 mg IM STAT PRN; Protocol PRN Reason: Hypoglycemia Protocol Heparin Sodium (Porcine) (Heparin) 5,000 units SC Q8 [facility] Last Admin: 06/13/18 13:34 Dose: 5,000 units Dextrose (Dextrose 5% In Water 1000 Ml) 1,000 mls @ 0 mls/hr IV .Q0M PRN; Protocol PRN Reason: Hypoglycemia Protocol Aztreonam 1 gm/ Sodium (Chloride) 100 mls @ 100 mls/hr IVPB Q12H [facility]; Protocol Last Admin: 06/13/18 05:06 Dose: 100 mls/hr Insulin Human Isoph/Insulin Regular (Novolin 70/30 (70/30 Units/Ml) 10 Ml) 12 units SC ACTID [facility] Last Admin: 06/13/18 17:05 Dose: 12 unit Insulin Human Regular (Novolin R) 0 unit SC ACHS [facility]; Protocol Last Admin: 06/13/18 12:22 Dose: 2 unit Methylprednisolone (Solu-Medrol) 40 mg IVP Q6H [facility] Last Admin: 06/13/18 13:35 Dose: 40 mg Metoprolol Tartrate (Lopressor) 25 mg PO BID [facility] Last Admin: 06/13/18 10:49 Dose: 25 mg Ondansetron HCl (Zofran Inj) 4 mg IVP DAILY@ONCE PRN PRN Reason: Nausea/Vomiting Last Admin: 06/11/18 09:18 Dose: 4 mg Ondansetron HCl (Zofran Inj) 4 mg IVP Q6H PRN PRN Reason: Nausea/Vomiting Last Admin: 06/13/18 13:33 Dose: 4 mg Pantoprazole Sodium (Protonix Ec Tab) 40 mg PO DAILY [facility] Last Admin: 06/13/18 10:50 Dose: 40 mg Rosuvastatin Calcium (Crestor) 5 mg PO HS [facility] Last Admin: 06/12/18 21:49 Dose: 5 mg Spironolactone (Aldactone) 25 mg PO DAILY [facility] Last Admin: 06/08/18 14:07 Dose: 25 mg - Labs Labs: 06/13/18 08:08 06/13/18 08:08 PT 12.7 SECONDS (9.7-12.2) H 06/07/18 07:23 INR 1.2 06/07/18 07:23 APTT 35 SECONDS (21-34) H 06/07/18 07:23
--- NOTE | 2018-06-13 19:10 | CP.PCM.PN ---
<Micha Moscoso - Last Filed: 06/13/18 19:08> Subjective - Date & Time of Evaluation Date of Evaluation: 06/13/18 Time of Evaluation: 06:00 - Subjective Subjective: Patient seen and evaluated bedside. Patient states breathing has improved and she is walking around with minimal SOB. Objective - Vital Signs/Intake and Output Vital Signs (last 24 hours): Temp Pulse Resp BP Pulse Ox 97.8 F 94 H 18 145/80 100 06/13/18 15:00 06/13/18 16:00 06/13/18 15:00 06/13/18 18:08 06/13/18 15:00 - Medications Medications: Current Medications Acetaminophen (Tylenol 325mg Tab) 650 mg PO Q6 PRN PRN Reason: Fever >100.4 F Acetaminophen (Tylenol 325mg Tab) 650 mg PO Q6 PRN PRN Reason: Pain, moderate (4-7) Last Admin: 06/06/18 00:55 Dose: 650 mg Albuterol/Ipratropium (Duoneb 3 Mg/0.5 Mg (3 Ml) Ud) 3 ml INH RQ4 [facility] Last Admin: 06/13/18 11:17 Dose: 3 ml Aspirin (Ecotrin) 81 mg PO DAILY [facility] Last Admin: 06/13/18 10:49 Dose: 81 mg Calcium Acetate (Phoslo) 2,001 mg PO TIDCC [facility] Last Admin: 06/11/18 11:45 Dose: Not Given Dextrose (Glutose 15) 0 gm PO ONCE PRN; Protocol PRN Reason: Hypoglycemia Protocol Dextrose (Dextrose 50% Inj) 0 ml IV STAT PRN; Protocol PRN Reason: Hypoglycemia Protocol Docusate Sodium (Colace) 100 mg PO TID [facility] Last Admin: 06/10/18 18:05 Dose: 100 mg Ergocalciferol (Drisdol 50,000 Intl Units Cap) 1 cap PO Q7D [facility] Last Admin: 06/10/18 22:01 Dose: 1 cap Fluticasone/Vilanterol (Breo Ellipta 100-25 Mcg Inh) 1 puff INH RQD [facility] Last Admin: 06/13/18 07:46 Dose: 1 puff Furosemide (Lasix) 20 mg IVP DAILY [facility] Last Admin: 06/13/18 10:48 Dose: 20 mg Glucagon (Glucagen Diagnostic Kit) 0 mg IM STAT PRN; Protocol PRN Reason: Hypoglycemia Protocol Heparin Sodium (Porcine) (Heparin) 5,000 units SC Q8 [facility] Last Admin: 06/13/18 13:34 Dose: 5,000 units Dextrose (Dextrose 5% In Water 1000 Ml) 1,000 mls @ 0 mls/hr IV .Q0M PRN; Protocol PRN Reason: Hypoglycemia Protocol Aztreonam 1 gm/ Sodium (Chloride) 100 mls @ 100 mls/hr IVPB Q12H [facility]; Protocol Last Admin: 06/13/18 18:07 Dose: 100 mls/hr Insulin Human Isoph/Insulin Regular (Novolin 70/30 (70/30 Units/Ml) 10 Ml) 12 units SC ACTID [facility] Last Admin: 06/13/18 17:05 Dose: 12 unit Insulin Human Regular (Novolin R) 0 unit SC ACHS [facility]; Protocol Last Admin: 06/13/18 18:07 Dose: 2 unit Methylprednisolone (Solu-Medrol) 40 mg IVP Q6H [facility] Last Admin: 06/13/18 13:35 Dose: 40 mg Metoprolol Tartrate (Lopressor) 25 mg PO BID [facility] Last Admin: 06/13/18 18:08 Dose: 25 mg Ondansetron HCl (Zofran Inj) 4 mg IVP DAILY@ONCE PRN PRN Reason: Nausea/Vomiting Last Admin: 06/11/18 09:18 Dose: 4 mg Ondansetron HCl (Zofran Inj) 4 mg IVP Q6H PRN PRN Reason: Nausea/Vomiting Last Admin: 06/13/18 13:33 Dose: 4 mg Pantoprazole Sodium (Protonix Ec Tab) 40 mg PO DAILY [facility] Last Admin: 06/13/18 10:50 Dose: 40 mg Rosuvastatin Calcium (Crestor) 5 mg PO HS [facility] Last Admin: 06/12/18 21:49 Dose: 5 mg Spironolactone (Aldactone) 25 mg PO DAILY [facility] Last Admin: 06/08/18 14:07 Dose: 25 mg - Labs Labs: 06/13/18 08:08 06/13/18 08:08 PT 12.7 SECONDS (9.7-12.2) H 06/07/18 07:23 INR 1.2 06/07/18 07:23 APTT 35 SECONDS (21-34) H 06/07/18 07:23 - Respiratory Exam Respiratory Exam: Wheezes - Extremities Exam Extremities Exam: Pedal Edema Assessment and Plan - Assessment and Plan (Free Text) Plan: Assessment and Plan (1) Acute kidney injury superimposed on chronic kidney disease Assessment & Plan: 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; likely with underlying diabetic kidney disease with some degree of superimposed ATN, renal function now improving; stable electrolyte status -avoid nephrotoxic agents; -continue lasix 20 mg IVP daily -awaiting 24 hr UPEP Status: Acute (2) CHF (congestive heart failure) Assessment & Plan: continue to hold CARMEL inhibitor/ARB and aldactone until renal function close to baseline; Status: Acute (3) Chronic kidney disease-mineral and bone disorder Assessment & Plan: Holding phos binder for now, will re-assess once renal function closer to baseline; continue ergocalciferol 50,000 u weekly; Status: Acute (4) HTN (hypertension) Assessment & Plan: BP controlled, continue current meds Status: Acute (5) Pneumonia Assessment & Plan: Continue to dose antibiotics for CrCl < 20 ml/min; Status: Acute <Naun Rader - Last Filed: 06/14/18 07:58> Objective - Vital Signs/Intake and Output Vital Signs (last 24 hours): Temp Pulse Resp BP Pulse Ox 97.2 F L 80 20 144/81 100 06/13/18 22:00 06/14/18 00:51 06/13/18 22:00 06/13/18 22:00 06/13/18 22:00 - Medications Medications: Current Medications Acetaminophen (Tylenol 325mg Tab) 650 mg PO Q6 PRN PRN Reason: Fever >100.4 F Acetaminophen (Tylenol 325mg Tab) 650 mg PO Q6 PRN PRN Reason: Pain, moderate (4-7) Last Admin: 06/06/18 00:55 Dose: 650 mg Albuterol/Ipratropium (Duoneb 3 Mg/0.5 Mg (3 Ml) Ud) 3 ml INH RQ4 [facility] Last Admin: 06/14/18 04:31 Dose: Not Given Aspirin (Ecotrin) 81 mg PO DAILY [facility] Last Admin: 06/13/18 10:49 Dose: 81 mg Calcium Acetate (Phoslo) 2,001 mg PO TIDCC [facility] Last Admin: 06/11/18 11:45 Dose: Not Given Dextrose (Glutose 15) 0 gm PO ONCE PRN; Protocol PRN Reason: Hypoglycemia Protocol Dextrose (Dextrose 50% Inj) 0 ml IV STAT PRN; Protocol PRN Reason: Hypoglycemia Protocol Last Admin: 06/13/18 21:16 Dose: 50 ml Docusate Sodium (Colace) 100 mg PO TID [facility] Last Admin: 06/10/18 18:05 Dose: 100 mg Ergocalciferol (Drisdol 50,000 Intl Units Cap) 1 cap PO Q7D [facility] Last Admin: 06/10/18 22:01 Dose: 1 cap Fluticasone/Vilanterol (Breo Ellipta 100-25 Mcg Inh) 1 puff INH RQD [facility] Last Admin: 06/13/18 07:46 Dose: 1 puff Furosemide (Lasix) 20 mg IVP DAILY [facility] Last Admin: 06/13/18 10:48 Dose: 20 mg Glucagon (Glucagen Diagnostic Kit) 0 mg IM STAT PRN; Protocol PRN Reason: Hypoglycemia Protocol Heparin Sodium (Porcine) (Heparin) 5,000 units SC Q8 [facility] Last Admin: 06/14/18 05:50 Dose: Not Given Dextrose (Dextrose 5% In Water 1000 Ml) 1,000 mls @ 0 mls/hr IV .Q0M PRN; Protocol PRN Reason: Hypoglycemia Protocol Aztreonam 1 gm/ Sodium (Chloride) 100 mls @ 100 mls/hr IVPB Q12H [facility]; Protocol Last Admin: 06/14/18 05:42 Dose: 100 mls/hr Insulin Human Isoph/Insulin Regular (Novolin 70/30 (70/30 Units/Ml) 10 Ml) 12 units SC ACTID [facility] Last Admin: 06/13/18 17:05 Dose: 12 unit Insulin Human Regular (Novolin R) 0 unit SC ACHS [facility]; Protocol Last Admin: 06/13/18 21:44 Dose: Not Given Methylprednisolone (Solu-Medrol) 40 mg IVP Q6H [facility] Last Admin: 06/14/18 03:12 Dose: 40 mg Metoprolol Tartrate (Lopressor) 25 mg PO BID [facility] Last Admin: 06/13/18 18:08 Dose: 25 mg Ondansetron HCl (Zofran Inj) 4 mg IVP DAILY@ONCE PRN PRN Reason: Nausea/Vomiting Last Admin: 06/11/18 09:18 Dose: 4 mg Ondansetron HCl (Zofran Inj) 4 mg IVP Q6H PRN PRN Reason: Nausea/Vomiting Last Admin: 06/13/18 13:33 Dose: 4 mg Pantoprazole Sodium (Protonix Ec Tab) 40 mg PO DAILY [facility] Last Admin: 06/13/18 10:50 Dose: 40 mg Rosuvastatin Calcium (Crestor) 5 mg PO HS [facility] Last Admin: 06/13/18 21:46 Dose: 5 mg Spironolactone (Aldactone) 25 mg PO DAILY [facility] Last Admin: 06/08/18 14:07 Dose: 25 mg - Labs Labs: 06/13/18 08:08 06/13/18 08:08 PT 12.7 SECONDS (9.7-12.2) H 06/07/18 07:23 INR 1.2 06/07/18 07:23 APTT 35 SECONDS (21-34) H 06/07/18 07:23 Assessment and Plan (1) Acute kidney injury superimposed on chronic kidney disease Status: Acute (2) CHF (congestive heart failure) Status: Acute (3) Chronic kidney disease-mineral and bone disorder Status: Acute (4) HTN (hypertension) Status: Acute (5) Pneumonia Status: Acute Attending/Attestation - Attestation I have personally seen and examined this patient.: Yes I have fully participated in the care of the patient.: Yes I have reviewed all pertinent clinical information, including history, physical exam and plan: Yes Notes (Text): Patient seen and examined; I agree with the resident's note as above with the following additions/edits: Patient with htn, dm, CKD IIIB/IV, admitted with hypoxemic resp failure secondary to systolic CHF, PNA and COPD, SCOUT; Respiratory status much improved; on nasal cannula O2, minimal wheezes; Renal function stable though still not at baseline; SCOUT likely secondary to ATN; stable electrolyte and volume status; underlying CKD likely due to diabetic kidney disease, however, also has positive immunofixation that needs further outpatient workup; -continue lasix 20 mg IV daily; -avoid nephrotoxic agents; -cotninue B-blockers for CHF optimization; holding CARMEL inhibitor/ARB for now; BP controlled;
[2018-06-13] MEDS ORDERED: Dextrose 50% VIAL Inj (50 ml) IV ONE (21:19)
[2018-06-14] MEDS: Albuterol-Ipratrop 3 mg / 0.5 (3 ml) UD INH SCH ×4 (01:12→13:45)
[2018-06-14] MEDS: MethylPREDNISolone 40 mg Vial IVP SCH ×2 (03:12→08:36)
[2018-06-14] MEDS: Aztreonam 1 GM in Sodium Chloride 0.9% 100 ML IVPB SCH (05:42)
--- NOTE | 2018-06-14 07:00 | CP.PCM.PN ---
Subjective - Date & Time of Evaluation Date of Evaluation: 06/14/18 Time of Evaluation: 06:59 - Subjective Subjective: PGY-1 Medicine Progress Note for Dr. Venegas Objective - Vital Signs/Intake and Output Vital Signs (last 24 hours): Temp Pulse Resp BP Pulse Ox 97.2 F L 80 20 144/81 100 06/13/18 22:00 06/14/18 00:51 06/13/18 22:00 06/13/18 22:00 06/13/18 22:00 - Medications Medications: Current Medications Acetaminophen (Tylenol 325mg Tab) 650 mg PO Q6 PRN PRN Reason: Fever >100.4 F Acetaminophen (Tylenol 325mg Tab) 650 mg PO Q6 PRN PRN Reason: Pain, moderate (4-7) Last Admin: 06/06/18 00:55 Dose: 650 mg Albuterol/Ipratropium (Duoneb 3 Mg/0.5 Mg (3 Ml) Ud) 3 ml INH RQ4 [facility] Last Admin: 06/14/18 04:31 Dose: Not Given Aspirin (Ecotrin) 81 mg PO DAILY [facility] Last Admin: 06/13/18 10:49 Dose: 81 mg Calcium Acetate (Phoslo) 2,001 mg PO TIDCC [facility] Last Admin: 06/11/18 11:45 Dose: Not Given Dextrose (Glutose 15) 0 gm PO ONCE PRN; Protocol PRN Reason: Hypoglycemia Protocol Dextrose (Dextrose 50% Inj) 0 ml IV STAT PRN; Protocol PRN Reason: Hypoglycemia Protocol Last Admin: 06/13/18 21:16 Dose: 50 ml Docusate Sodium (Colace) 100 mg PO TID [facility] Last Admin: 06/10/18 18:05 Dose: 100 mg Ergocalciferol (Drisdol 50,000 Intl Units Cap) 1 cap PO Q7D [facility] Last Admin: 06/10/18 22:01 Dose: 1 cap Fluticasone/Vilanterol (Breo Ellipta 100-25 Mcg Inh) 1 puff INH RQD [facility] Last Admin: 06/13/18 07:46 Dose: 1 puff Furosemide (Lasix) 20 mg IVP DAILY [facility] Last Admin: 06/13/18 10:48 Dose: 20 mg Glucagon (Glucagen Diagnostic Kit) 0 mg IM STAT PRN; Protocol PRN Reason: Hypoglycemia Protocol Heparin Sodium (Porcine) (Heparin) 5,000 units SC Q8 [facility] Last Admin: 06/14/18 05:50 Dose: Not Given Dextrose (Dextrose 5% In Water 1000 Ml) 1,000 mls @ 0 mls/hr IV .Q0M PRN; Protocol PRN Reason: Hypoglycemia Protocol Aztreonam 1 gm/ Sodium (Chloride) 100 mls @ 100 mls/hr IVPB Q12H [facility]; Protocol Last Admin: 06/14/18 05:42 Dose: 100 mls/hr Insulin Human Isoph/Insulin Regular (Novolin 70/30 (70/30 Units/Ml) 10 Ml) 12 units SC ACTID [facility] Last Admin: 06/13/18 17:05 Dose: 12 unit Insulin Human Regular (Novolin R) 0 unit SC ACHS [facility]; Protocol Last Admin: 06/13/18 21:44 Dose: Not Given Methylprednisolone (Solu-Medrol) 40 mg IVP Q6H [facility] Last Admin: 06/14/18 03:12 Dose: 40 mg Metoprolol Tartrate (Lopressor) 25 mg PO BID [facility] Last Admin: 06/13/18 18:08 Dose: 25 mg Ondansetron HCl (Zofran Inj) 4 mg IVP DAILY@ONCE PRN PRN Reason: Nausea/Vomiting Last Admin: 06/11/18 09:18 Dose: 4 mg Ondansetron HCl (Zofran Inj) 4 mg IVP Q6H PRN PRN Reason: Nausea/Vomiting Last Admin: 06/13/18 13:33 Dose: 4 mg Pantoprazole Sodium (Protonix Ec Tab) 40 mg PO DAILY [facility] Last Admin: 06/13/18 10:50 Dose: 40 mg Rosuvastatin Calcium (Crestor) 5 mg PO HS [facility] Last Admin: 06/13/18 21:46 Dose: 5 mg Spironolactone (Aldactone) 25 mg PO DAILY [facility] Last Admin: 06/08/18 14:07 Dose: 25 mg - Labs Labs: 06/13/18 08:08 06/13/18 08:08 PT 12.7 SECONDS (9.7-12.2) H 06/07/18 07:23 INR 1.2 06/07/18 07:23 APTT 35 SECONDS (21-34) H 06/07/18 07:23
--- NOTE | 2018-06-14 07:01 | CP.PCM.PN ---
Subjective - Date & Time of Evaluation Date of Evaluation: 06/13/18 Time of Evaluation: 20:40 - Subjective Subjective: Patient with improved breathing Physical examination - Constitutional Appears: Non-toxic, No Acute Distress - Head Exam Head Exam: ATRAUMATIC, NORMAL INSPECTION, NORMOCEPHALIC - Eye Exam Eye Exam: EOMI, Normal appearance, PERRL Pupil Exam: NORMAL ACCOMODATION - ENT Exam ENT Exam: Mucous Membranes Moist, Normal Exam - Neck Exam Neck Exam: Full ROM, Normal Inspection. absent: Tenderness - Respiratory Exam Respiratory Exam: Clear to Ausculation Bilateral, NORMAL BREATHING PATTERN. absent: Accessory Muscle Use, Rales, Rhonchi, Wheezes, Respiratory Distress, Stridor - Cardiovascular Exam Cardiovascular Exam: REGULAR RHYTHM, +S1, +S2 - GI/Abdominal Exam GI & Abdominal Exam: Soft, Normal Bowel Sounds. absent: Distended, Firm, Guarding, Rigid, Tenderness, Rebound - Extremities Exam Extremities Exam: Full ROM, Normal Capillary Refill, Normal Inspection, Pedal Edema (b/l pitting edema). absent: Calf Tenderness - Neurological Exam Neurological Exam: Alert, Awake, Normal Gait, Oriented x3 - Psychiatric Exam Psychiatric exam: Normal Affect, Normal Mood - Skin Skin Exam: Dry, Intact, Normal Color, Warm Assessment and Plan - Assessment and Plan (Free Text) Assessment: 78 year old female with PMHx of CAD (CABG 2014), HTN, T2DM, COPD, and os teoporosis, presenting for evaluation of SOB, and admitted for treatment of an acute CHF exacerbation. Plan: CHF exacerbation, acute on chronic -Echo (2014): Grade IV restrictive diastolic dysfunction and systolic dysfunction -Echo (06/05): EF 20%, PFO, mod MR, calcified AV, LA dilation -Trop series x3 negative -BNP is 7020 on admission -Lasix 20mg IVP daily -Lopressor 25mg PO BID -ASA 81 mg PO daily -CARMEL/ARb, Aldactone held pending improved renal function per Nephro recs - no cardiac intervention at this time, c/w medical management Suspected CAP -Imaging -CXR: Diffuse increased interstitial airspace opacities suggestive for edema/infiltrate, superimposed confluent consolidative changes in left mid to lower lung, and right lung apex and base -CT chest: Markedly limited study degraded by motion artifact. The evaluation is also limited without IV contrast administration. Round consolidation versus localized pleural effusion noted at the medial aspect of the right upper chest. Reticular opacities and ground-glass opacities are noted in the upper lobes larger on the left. Moderate to large right pleural effusion. Calcified granuloma and calcified mediastinal and hilar lymphadenopathy are aga in noted. Findings likely due to prior granulomatosis disease or sarcoidosis. Moderate cardiomegaly. -Maintaining spO2 on NC, -Sputum cx negative for mycobacteria -Tylenol prn fever -c/w Aztreonam 1g q12h, -Solu-medrol 40mg IV Q6H -Duonebs q4h -Brekendra-Ellipta -Pulmonology, Dr. High CAD -CABG 2014 -ASA 81mg po QD -Crestor 5mg PO QD SCOUT -Cr 2.5, downtrending. Continue to monitor -Consider adding ACEi pending improved renal function -Nephro (Dr. Rader) recs appreciated -hyperphosphatemia, improved; Phoslo held per Nephro DM -ISS medium -Novolin 12 ACTID -accucheck ACHS -hypoglycemia protocol Nausea/Vomiting -Zofran 4mg IV Q6H prn -Nursing communication to give 30 min pre-meals HTN -Continue to monitor, add CARMEL if Cr stable, otherwise maybe Hydralazine Suspected UTI, resolved -UA contaminated -Urine cx negative Constipation, resolved -Docusate 100mg PO TID-held PPx, Diet, Disposition -DVT ppx: scds, heparin 5000 units SC -GI ppx: protonix 40 mg PO daily -Diet: HHD -PT/OT eval -Dispo: patient not currently maintaining saturation off O2 on walk test. F/u PT. Objective - Vital Signs/Intake and Output Vital Signs (last 24 hours): Temp Pulse Resp BP Pulse Ox 97.2 F L 80 20 144/81 100 06/13/18 22:00 06/14/18 00:51 06/13/18 22:00 06/13/18 22:00 06/13/18 22:00 - Medications Medications: Current Medications Acetaminophen (Tylenol 325mg Tab) 650 mg PO Q6 PRN PRN Reason: Fever >100.4 F Acetaminophen (Tylenol 325mg Tab) 650 mg PO Q6 PRN PRN Reason: Pain, moderate (4-7) Last Admin: 06/06/18 00:55 Dose: 650 mg Albuterol/Ipratropium (Duoneb 3 Mg/0.5 Mg (3 Ml) Ud) 3 ml INH RQ4 [facility] Last Admin: 06/14/18 04:31 Dose: Not Given Aspirin (Ecotrin) 81 mg PO DAILY [facility] Last Admin: 06/13/18 10:49 Dose: 81 mg Calcium Acetate (Phoslo) 2,001 mg PO TIDCC [facility] Last Admin: 06/11/18 11:45 Dose: Not Given Dextrose (Glutose 15) 0 gm PO ONCE PRN; Protocol PRN Reason: Hypoglycemia Protocol Dextrose (Dextrose 50% Inj) 0 ml IV STAT PRN; Protocol PRN Reason: Hypoglycemia Protocol Last Admin: 06/13/18 21:16 Dose: 50 ml Docusate Sodium (Colace) 100 mg PO TID [facility] Last Admin: 06/10/18 18:05 Dose: 100 mg Ergocalciferol (Drisdol 50,000 Intl Units Cap) 1 cap PO Q7D [facility] Last Admin: 06/10/18 22:01 Dose: 1 cap Fluticasone/Vilanterol (Breo Ellipta 100-25 Mcg Inh) 1 puff INH RQD [facility] Last Admin: 06/13/18 07:46 Dose: 1 puff Furosemide (Lasix) 20 mg IVP DAILY [facility] Last Admin: 06/13/18 10:48 Dose: 20 mg Glucagon (Glucagen Diagnostic Kit) 0 mg IM STAT PRN; Protocol PRN Reason: Hypoglycemia Protocol Heparin Sodium (Porcine) (Heparin) 5,000 units SC Q8 [facility] Last Admin: 06/14/18 05:50 Dose: Not Given Dextrose (Dextrose 5% In Water 1000 Ml) 1,000 mls @ 0 mls/hr IV .Q0M PRN; Protocol PRN Reason: Hypoglycemia Protocol Aztreonam 1 gm/ Sodium (Chloride) 100 mls @ 100 mls/hr IVPB Q12H [facility]; Protocol Last Admin: 06/14/18 05:42 Dose: 100 mls/hr Insulin Human Isoph/Insulin Regular (Novolin 70/30 (70/30 Units/Ml) 10 Ml) 12 units SC ACTID [facility] Last Admin: 06/13/18 17:05 Dose: 12 unit Insulin Human Regular (Novolin R) 0 unit SC ACHS [facility]; Protocol Last Admin: 06/13/18 21:44 Dose: Not Given Methylprednisolone (Solu-Medrol) 40 mg IVP Q6H [facility] Last Admin: 06/14/18 03:12 Dose: 40 mg Metoprolol Tartrate (Lopressor) 25 mg PO BID [facility] Last Admin: 06/13/18 18:08 Dose: 25 mg Ondansetron HCl (Zofran Inj) 4 mg IVP DAILY@ONCE PRN PRN Reason: Nausea/Vomiting Last Admin: 06/11/18 09:18 Dose: 4 mg Ondansetron HCl (Zofran Inj) 4 mg IVP Q6H PRN PRN Reason: Nausea/Vomiting Last Admin: 06/13/18 13:33 Dose: 4 mg Pantoprazole Sodium (Protonix Ec Tab) 40 mg PO DAILY [facility] Last Admin: 06/13/18 10:50 Dose: 40 mg Rosuvastatin Calcium (Crestor) 5 mg PO HS [facility] Last Admin: 06/13/18 21:46 Dose: 5 mg Spironolactone (Aldactone) 25 mg PO DAILY [facility] Last Admin: 06/08/18 14:07 Dose: 25 mg - Labs Labs: 06/13/18 08:08 06/13/18 08:08 PT 12.7 SECONDS (9.7-12.2) H 06/07/18 07:23 INR 1.2 06/07/18 07:23 APTT 35 SECONDS (21-34) H 06/07/18 07:23
[2018-06-14] MEDS: Fluticasone-Vilanterol 100/25mcg Diskus INH SCH (07:45)
[2018-06-14 08:31] LABS: BASO % 0.2 % (0.0-2.0); HEMOGLOBIN 12.1 g/dL (11.0-16.0); LYMPH # 0.2 K/uL (1.0-4.3); MEAN CELL VOLUME 91.4 fL (81.0-99.0); MEAN CORPUSCULAR HEMOGLOBIN 29.8 pg (27.0-31.0); MEAN CORPUSCULAR HGB CONC 32.6 g/dL (33.0-37.0); MEAN PLATELET VOLUME 10.7 fL (7.2-11.7); MONO # 0.1 K/uL (0.0-0.8); MONO % 1.2 % (0.0-10.0); NEUT # 8.3 K/uL (1.8-7.0); NEUT % 96.6 % (50.0-75.0); PLATELET COUNT 256 K/uL (130-400); RBC 4.08 Mil/uL (3.80-5.20); RED CELL DISTRIBUTION WIDTH 15.1 % (11.5-14.5); WHITE BLOOD COUNT 8.6 K/uL (4.8-10.8)
[2018-06-14] MEDS: (Novolin R) Insulin Human Regular 100 units/ml vial SC SCH ×3 (08:36→17:07)
[2018-06-14] MEDS: (Novolin 70/30) NPH/Regular 70/30 Units/ml 10 ml vial SC SCH ×3 (08:41→17:06)
[2018-06-14 09:13] LABS: CALCIUM 8.7 mg/dl (8.6-10.4)
[2018-06-14 09:18] LABS: LYMPHOCYTE 1 % (20-40); MONOCYTE 2 % (0-10); NEUTROPHIL 97 % (50-75); PLATELET ESTIMATE NORMAL (NORMAL); TOTAL CELLS COUNTED 100
[2018-06-14] MEDS ORDERED: Sod Polystyrene Sulf 15 gm/60 ml Susp PO ONE (10:00)
--- NOTE | 2018-06-14 10:53 | CP.PCM.PN ---
Subjective - Date & Time of Evaluation Date of Evaluation: 06/14/18 Time of Evaluation: 06:00 - Subjective Subjective: Patient seen and evaluated bedside in AM. Patient states she vomited twice this AM. Patient states breathing is well, and she continues to ambulate with minimal SOB. Objective - Vital Signs/Intake and Output Vital Signs (last 24 hours): Temp Pulse Resp BP Pulse Ox 98.0 F 89 20 135/79 98 06/14/18 07:00 06/14/18 07:00 06/14/18 07:00 06/14/18 07:00 06/14/18 07:00 - Medications Medications: Current Medications Acetaminophen (Tylenol 325mg Tab) 650 mg PO Q6 PRN PRN Reason: Fever >100.4 F Acetaminophen (Tylenol 325mg Tab) 650 mg PO Q6 PRN PRN Reason: Pain, moderate (4-7) Last Admin: 06/06/18 00:55 Dose: 650 mg Albuterol/Ipratropium (Duoneb 3 Mg/0.5 Mg (3 Ml) Ud) 3 ml INH RQ4 [facility] Last Admin: 06/14/18 07:45 Dose: 3 ml Aspirin (Ecotrin) 81 mg PO DAILY [facility] Last Admin: 06/13/18 10:49 Dose: 81 mg Calcium Acetate (Phoslo) 2,001 mg PO TIDCC [facility] Last Admin: 06/11/18 11:45 Dose: Not Given Dextrose (Glutose 15) 0 gm PO ONCE PRN; Protocol PRN Reason: Hypoglycemia Protocol Dextrose (Dextrose 50% Inj) 0 ml IV STAT PRN; Protocol PRN Reason: Hypoglycemia Protocol Last Admin: 06/13/18 21:16 Dose: 50 ml Docusate Sodium (Colace) 100 mg PO TID [facility] Last Admin: 06/10/18 18:05 Dose: 100 mg Ergocalciferol (Drisdol 50,000 Intl Units Cap) 1 cap PO Q7D [facility] Last Admin: 06/10/18 22:01 Dose: 1 cap Fluticasone/Vilanterol (Breo Ellipta 100-25 Mcg Inh) 1 puff INH RQD [facility] Last Admin: 06/14/18 07:45 Dose: 1 puff Furosemide (Lasix) 20 mg IVP DAILY [facility] Last Admin: 06/13/18 10:48 Dose: 20 mg Glucagon (Glucagen Diagnostic Kit) 0 mg IM STAT PRN; Protocol PRN Reason: Hypoglycemia Protocol Heparin Sodium (Porcine) (Heparin) 5,000 units SC Q8 [facility] Last Admin: 06/14/18 05:50 Dose: Not Given Dextrose (Dextrose 5% In Water 1000 Ml) 1,000 mls @ 0 mls/hr IV .Q0M PRN; Protocol PRN Reason: Hypoglycemia Protocol Aztreonam 1 gm/ Sodium (Chloride) 100 mls @ 100 mls/hr IVPB Q12H [facility]; Protocol Last Admin: 06/14/18 05:42 Dose: 100 mls/hr Insulin Human Isoph/Insulin Regular (Novolin 70/30 (70/30 Units/Ml) 10 Ml) 12 units SC ACTID [facility] Last Admin: 06/14/18 08:41 Dose: 12 unit Insulin Human Regular (Novolin R) 0 unit SC ACHS [facility]; Protocol Last Admin: 06/14/18 08:36 Dose: 10 unit Methylprednisolone (Solu-Medrol) 40 mg IVP Q6H [facility] Last Admin: 06/14/18 08:36 Dose: 40 mg Metoprolol Tartrate (Lopressor) 25 mg PO BID [facility] Last Admin: 06/13/18 18:08 Dose: 25 mg Ondansetron HCl (Zofran Inj) 4 mg IVP DAILY@ONCE PRN PRN Reason: Nausea/Vomiting Last Admin: 06/11/18 09:18 Dose: 4 mg Ondansetron HCl (Zofran Inj) 4 mg IVP Q6H PRN PRN Reason: Nausea/Vomiting Last Admin: 06/13/18 13:33 Dose: 4 mg Pantoprazole Sodium (Protonix Ec Tab) 40 mg PO DAILY [facility] Last Admin: 06/13/18 10:50 Dose: 40 mg Rosuvastatin Calcium (Crestor) 5 mg PO HS [facility] Last Admin: 06/13/18 21:46 Dose: 5 mg Spironolactone (Aldactone) 25 mg PO DAILY [facility] Last Admin: 06/08/18 14:07 Dose: 25 mg - Labs Labs: 06/14/18 08:21 06/14/18 08:21 PT 12.7 SECONDS (9.7-12.2) H 06/07/18 07:23 INR 1.2 06/07/18 07:23 APTT 35 SECONDS (21-34) H 06/07/18 07:23 - Eye Exam Eye Exam: Normal appearance - Respiratory Exam Respiratory Exam: Wheezes - Cardiovascular Exam Cardiovascular Exam: REGULAR RHYTHM, +S1, +S2 - Extremities Exam Extremities Exam: Pedal Edema - Neurological Exam Neurological Exam: Alert, Awake, Oriented x3 Assessment and Plan - Assessment and Plan (Free Text) Assessment: 78 year old female with PMH of HTN, DM, CKD IIIB/IV, admitted with hypoxemic resp failure secondary to systolic CHF, PNA and COPD, SCOUT. 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; likely with underlying diabetic kidney disease with some degree of superimposed ATN, renal function now improving; stable electrolyte status -avoid nephrotoxic agents; -continue lasix 20 mg IVP daily -awaiting 24 hr UPEP Status: Acute (2) CHF (congestive heart failure) Assessment & Plan: continue to hold CARMEL inhibitor/ARB and aldactone until renal function close to baseline; Status: Acute (3) Chronic kidney disease-mineral and bone disorder Assessment & Plan: Holding phos binder for now, will re-assess once renal function closer to baseline; continue ergocalciferol 50,000 u weekly; Status: Acute (4) HTN (hypertension) Assessment & Plan: BP controlled, continue current meds Status: Acute (5) Pneumonia Assessment & Plan: Continue to dose antibiotics for CrCl < 20 ml/min; Status: Acute (6) Hyperkalemia -kayexalate given -low potassium diet -continue to monitor Status: Active
[2018-06-14] MEDS: Pantoprazole 40 mg EC Tab PO SCH (11:17)
[2018-06-14] MEDS ORDERED: MethylPREDNISolone 40 mg Vial IVP SCH ×2 (11:30→16:36)
[2018-06-14 15:16] LABS: ALBUMIN 59.6 %; ALPHA-1 GLOBULIN 2.2 %
[2018-06-14 15:50] VITALS: RESP 18; TEMP 97.8
--- NOTE | 2018-06-14 16:08 | CP.PCM.DIS ---
Provider - Provider Date of Admission: 06/05/18 22:15 Attending physician: Johnathon Venegas MD Consults: 06/06/18 05:00 Cardiology Consult Routine Comment: Consulting Provider: Jamaal Huerta Consulting Physician: Jamaal Huerta Reason for Consult: chf exacerbation 06/06/18 17:29 Pulmonology Consult Routine Comment: Consulting Provider: Riley High Consulting Physician: Riley High Reason for Consult: pleural effusion 06/07/18 06:04 Physician Consult Routine Comment: Consulting Provider: Darci Colón Consulting Physician: Darci Colón Reason for Consult: thoracentesis for pleural effusion 06/07/18 11:59 Nephrology Consult Routine Comment: Consulting Provider: Naun Rader Consulting Physician: Naun Rader Reason for Consult: mikaela, please evaluate Time Spent in preparation of Discharge (in minutes): 40 Hospital Course - Lab Results Lab Results: Micro Results 06/07/18 18:31 Pleural Fluid Gram Stain - Final 06/07/18 18:31 Pleural Fluid Body Fluid Culture - Final No growth. 06/05/18 23:10 Blood Blood Culture - Final NO GROWTH AFTER 5 DAYS 06/05/18 23:10 Blood Gram Stain - Final TEST NOT PERFORMED 06/05/18 23:10 Blood Blood Culture - Final NO GROWTH AFTER 5 DAYS 06/05/18 23:10 Blood Gram Stain - Final TEST NOT PERFORMED 06/07/18 18:31 Other: Please Indicate Mycobacterial Culture - Preliminary 06/07/18 18:31 Pleural Fluid Anaerobic Culture - Final NO ANAEROBES ISOLATED. 06/06/18 16:14 Urine,Clean Catch Urine Culture - Final No Growth (<1,000 CFU/ML) Most Recent Lab Values WBC 8.6 K/uL (4.8-10.8) 06/14/18 08:21 RBC 4.08 Mil/uL (3.80-5.20) 06/14/18 08:21 Hgb 12.1 g/dL (11.0-16.0) 06/14/18 08:21 Hct 37.3 % (34.0-47.0) 06/14/18 08:21 MCV 91.4 fL (81.0-99.0) 06/14/18 08:21 MCH 29.8 pg (27.0-31.0) 06/14/18 08:21 MCHC 32.6 g/dL (33.0-37.0) L 06/14/18 08:21 RDW 15.1 % (11.5-14.5) H 06/14/18 08:21 Plt Count 256 K/uL (130-400) 06/14/18 08:21 MPV 10.7 fL (7.2-11.7) 06/14/18 08:21 Neut % (Auto) 96.6 % (50.0-75.0) H 06/14/18 08:21 Lymph % (Auto) 2.0 % (20.0-40.0) L 06/14/18 08:21 [place] % (Auto) 1.2 % (0.0-10.0) 06/14/18 08:21 Eos % (Auto) 0.0 % (0.0-4.0) 06/14/18 08:21 Baso % (Auto) 0.2 % (0.0-2.0) 06/14/18 08:21 Neut # (Auto) 8.3 K/uL (1.8-7.0) H 06/14/18 08:21 Lymph # (Auto) 0.2 K/uL (1.0-4.3) L 06/14/18 08:21 [place] # (Auto) 0.1 K/uL (0.0-0.8) 06/14/18 08:21 Eos # (Auto) 0.0 K/uL (0.0-0.7) 06/14/18 08:21 Baso # (Auto) 0.0 K/uL (0.0-0.2) 06/14/18 08:21 Neutrophils % (Manual) 97 % (50-75) H 06/14/18 08:21 Band Neutrophils % 1 % (0-2) 06/09/18 07:03 Lymphocytes % (Manual) 1 % (20-40) L 06/14/18 08:21 Monocytes % (Manual) 2 % (0-10) 06/14/18 08:21 Eosinophils % (Manual) 1 % (0-4) 06/05/18 20:41 Toxic Granulation Present 06/12/18 07:52 Platelet Estimate Normal (NORMAL) 06/14/18 08:21 Large Platelets Present 06/12/18 07:52 Giant Platelets Present 06/12/18 07:52 RBC Morphology Normal 06/14/18 08:21 Polychromasia Slight 06/12/18 07:52 Hypochromasia (manual) Slight 06/12/18 07:52 Poikilocytosis (manual Slight 06/12/18 07:52 Anisocytosis (manual) Slight 06/13/18 08:08 Ovalocytes Slight 06/12/18 07:52 PT 12.7 SECONDS (9.7-12.2) H 06/07/18 07:23 INR 1.2 06/07/18 07:23 APTT 35 SECONDS (21-34) H 06/07/18 07:23 Sodium 136 mmol/L (132-148) 06/14/18 08:21 Potassium 5.6 mmol/L (3.6-5.2) H 06/14/18 08:21 Chloride 104 mmol/L (98-107) 06/14/18 08:21 Carbon Dioxide 26 mmol/L (22-30) 06/14/18 08:21 Anion Gap 12 (10-20) 06/14/18 08:21 BUN 76 mg/dL (7-17) H 06/14/18 08:21 Creatinine 2.5 mg/dL (0.7-1.2) H 06/14/18 08:21 Est GFR ( Amer) 23 06/14/18 08:21 Est GFR (Non-Af Amer) 19 06/14/18 08:21 POC Glucose (mg/dL) 446 mg/dL (65-110) H* 06/14/18 11:17 Random Glucose 405 mg/dL (65-105) H* D 06/14/18 08:21 Hemoglobin A1c 9.3 % (4.2-6.5) H 06/06/18 04:20 Uric Acid 9.7 mg/dL (2.2-7.5) H 06/10/18 08:23 Calcium 8.7 mg/dl (8.6-10.4) 06/14/18 08:21 Phosphorus 6.1 mg/dL (2.5-4.5) H 06/13/18 08:08 Magnesium 2.2 mg/dL (1.6-2.3) 06/12/18 07:52 Total Bilirubin 0.3 mg/dL (0.2-1.3) 06/14/18 08:21 AST 27 U/L (14-36) 06/14/18 08:21 ALT 27 U/L (9-52) 06/14/18 08:21 Alkaline Phosphatase 90 U/L (38-126) 06/14/18 08:21 Lactate Dehydrogenase 509 U/L (313-618) 06/07/18 17:19 Total Creatine Kinase 119 U/L (30-135) 06/12/18 07:52 CK-MB (Mass) 3.51 ng/mL (0.0-3.38) H 06/12/18 07:52 Troponin I 0.1540 ng/mL (0.00-0.120) H* 06/12/18 07:52 NT-Pro-B Natriuret Pep 7020 pg/mL (0-900) H 06/05/18 20:41 Total Protein 6.1 g/dL (6.3-8.3) L 06/14/18 08:21 Total Protein (PEP) 7.0 g/dL (6.1-8.1) 06/09/18 07:03 Albumin 3.0 g/dL (3.5-5.0) L 06/14/18 08:21 Globulin 3.0 gm/dL (2.2-3.9) 06/14/18 08:21 Albumin/Globulin Ratio 1.0 (1.0-2.1) 06/14/18 08:21 Alplm-3-Matmdsryq 2.2 % 06/10/18 07:32 Wiazj-9-Oupviyyli 6.8 % 06/10/18 07:32 Beta Globulins 10.2 % 06/10/18 07:32 Gamma Globulins 21.2 % 06/10/18 07:32 Triglycerides 74 mg/dL (0-149) D 06/06/18 04:20 Cholesterol 171 mg/dL (0-199) 06/06/18 04:20 LDL Cholesterol Direct 114 mg/dL (0-129) 06/06/18 04:20 HDL Cholesterol 39 mg/dL (30-70) 06/06/18 04:20 25-OH Vitamin D Total < 12.8 NG/ML (30.0-100.0) L 06/09/18 07:03 PTH Intact Whole [place] 106 pg/mL (14-64) H 06/09/18 07:03 Urine Color Yellow (YELLOW) 06/10/18 21:55 Urine Clarity Clear (Clear) 06/10/18 21:55 Urine pH 5.0 (5.0-8.0) 06/10/18 21:55 Ur Specific [place] 1.014 (1.003-1.030) 06/10/18 21:55 Urine Protein 2+ mg/dL (NEGATIVE) H 06/10/18 21:55 Urine Glucose (UA) 1+ mg/dL (Normal) 06/10/18 21:55 Urine Ketones Negative mg/dL (NEGATIVE) 06/10/18 21:55 Urine Blood Negative (NEGATIVE) 06/10/18 21:55 Urine Nitrate Negative (NEGATIVE) 06/10/18 21:55 Urine Bilirubin Negative (NEGATIVE) 06/10/18 21:55 Urine Urobilinogen Normal mg/dL (0.2-1.0) 06/10/18 21:55 Ur Leukocyte Esterase Neg [place]/uL (Negative) 06/10/18 21:55 Urine WBC (Auto) < 1 /hpf (0-5) 06/10/18 21:55 Urine RBC (Auto) 1 /hpf (0-3) 06/10/18 21:55 Urine WBC Clumps (Auto) Few /hpf (NONE) H 06/05/18 21:42 Ur Squamous Epith Cells 1 /hpf (0-5) 06/10/18 21:55 Ur Transition Epith Cell < 1 /hpf (0-3) 06/07/18 20:51 Urine Bacteria Rare (<OCC) 06/10/18 21:55 Hyaline Casts 3-5 /lpf (0-2) H 06/07/18 20:51 Ur Random Creatinine 90 mg/dL (20-275) 06/09/18 11:56 U Random Total Protein 320.0 mg/dL (0.0-12.0) H 06/07/18 20:50 Ur Random Urea Nitrogn 350 mg/dL 06/07/18 20:51 Ur Creatinine 24 Hour 0.48 g/24 h (0.50-2.15) L 06/10/18 07:32 Urine Total Volume 98.4 mg/dL 06/09/18 11:56 Microalb/Creat Ratio 1093 (<30) H 06/09/18 11:56 Ur Total Protein 24 Hr 917 mg/24 h (<150) H 06/10/18 07:32 Protein/Creat Ratio 24h 1905 mg/g creat (< OR = 114) H 06/10/18 07:32 Urine Albumin (PEP) 59.6 % 06/10/18 07:32 U [place] Ch 247.00 mg/L (1.35-24.19) H 06/10/18 07:49 U [place] Ch 40.40 mg/L (0.24-6.66) H 06/10/18 07:49 U [place]/Lambda 6.11 (2.04-10.37) 06/10/18 07:49 Ur Protein Fractions See note 06/10/18 07:32 Fluid Source Pleural/thoracentesi 06/07/18 18:31 Fluid Appearance Clear (CLEAR) 06/07/18 18:31 Fluid WBC 320.0 /mm3 (0.0-300.0) H 06/07/18 18:31 Fluid RBC 400.0 /mm3 (0.0-0.0) H 06/07/18 18:31 Fluid Tot Cell Count TEST NOT PERFORMED 06/07/18 18:31 Fluid Neutrophils 4.0 % (0-0) H 06/07/18 18:31 Fluid Lymphocytes 87.0 % (0-0) H 06/07/18 18:31 Fld Monocyte/Macrophag 8 % (0-0) H 06/07/18 18:31 Fluid Comment 06/07/18 18:31 Pleural Total Protein <3.0 g/dL 06/07/18 18:31 Pleural LDH 74 U/L 06/07/18 18:31 Serum Immunofixation Detected (Not Detected) H 06/09/18 07:03 Complement C3 98.0 mg/dL (88.0-165.0) 06/07/18 17:19 Complement C4 31.0 mg/dL (14.0-44.0) 06/07/18 17:19 Tot Complement (CH50) >60 U/mL (31-60) H 06/07/18 17:19 Influenza Typ A,B (EIA) Negative for flu a/b (NEGATIVE) 06/05/18 21:42 - Hospital Course Hospital Course: HPI: This is a 78 year old female with past medical history of congestive heart failure, CAD (CABG 2015), hypertension, insulin dependent diabetes mellitus, osteoporosis, pneumonia who presents with worsening shortness of breath over the past 2 days. She states that the difficulty breathing was the worst today, prompting her to come to the ED. She reports that she has not taken her medications for the past 3 months except for the insulin because of financial difficulties. Pt denies fever, chills, chest pain, palpitations, cough, headache, dizziness, numbness or tingling, abdominal pain, nausea/vomiting/diarrhea, recent travel, recent car rides longer than 4 hours, dysuria, increased urinary frequency. She endorses a fall 5 days ago, with lingering left chest wall discomfort and left shoulder pain. During the course of admission: Troponin series was negative. BNP on admission was 7020. Creatinine was 2.5. Echocardiogram demonstrated ejection fraction of 20%, PFO, moderate mitral regurgitation, calcified aortic valve, left atrial dilation. Chest xray demonstrated diffuse increased interstitial airspace opacities suggestive for edema/infiltrate, superimposed confluent consolidative changes in left mid to lower lung, and right lung apex and base. CT chest showed Markedly limited study degraded by motion artifact. The evaluation is also limited without IV contrast administration. Round consolidation versus localized pleural effusion noted at the medial aspect of the right upper chest. Reticular opacities and ground-glass opacities are noted in the upper lobes larger on the left. Moderate to large right pleural effusion. Calcified granuloma and calcified mediastinal and hilar lymphadenopathy are again noted. Findings likely due to prior granulomatosis disease or sarcoidosis. Moderate cardiomegaly. Sputum culture was negative for mycobacterium. Nephrology (Dr. Rader), Cardiology (Dr. Huerta), Pulmonology (Dr. High) were consulted. No acute cardiac intervention was required at this time, conservative medical management was continued.Patient was started on Lasix 20 mg IV daily, Lopressor 25 mg PO twice daily, aspirin 81 mg PO daily. CARMEL inhibitor and Aldactone were held, given patient's acute kidney injury findings, per Nephrology recs. Patient was started on course of doxycycline which she completed, followed by near week course of aztreonam. Duonebs and solumedrol we re initiated with tapering of steroids. During hospital course, patient remained afebrile. No leukocytosis was noted and no positive culture was grown. Patient is medically stable for discharge to [facility], as per Dr. Venegas. Please take all medications as prescribed, scripts have been provided. Please follow up with your primary care provider within 3-5 days of discharge for continued care and management. If symptoms worsen or persist, please return to the ED immediately. - Date & Time of H&P Date of H&P: 06/14/18 Time of H&P: 16:03 Discharge Exam - Head Exam Head Exam: ATRAUMATIC, NORMAL INSPECTION, NORMOCEPHALIC - Eye Exam Eye Exam: EOMI, Normal appearance, PERRL Pupil Exam: NORMAL ACCOMODATION - ENT Exam ENT Exam: Mucous Membranes Moist, Normal Exam - Neck Exam Neck exam: Full Rom, Normal Inspection - Respiratory Exam Respiratory Exam: Clear to PA & Lateral, NORMAL BREATHING PATTERN, UNREMARKABLE. absent: Accessory Muscle Use, Rales, Rhonchi, Wheezes, Respiratory Distress, Stridor - Cardiovascular Exam Cardiovascular Exam: REGULAR RHYTHM, +S1, +S2 - GI/Abdominal Exam GI & Abdominal Exam: Normal Bowel Sounds, Soft, Unremarkable. absent: Distended, Firm, Guarding, Rebound, Rigid, Tenderness - Extremities Exam Extremities exam: normal capillary refill, normal inspection, pedal pulses present - Back Exam Back exam: NORMAL INSPECTION - Neurological Exam Neurological exam: Alert, CN II-XII Intact, Oriented x3 - Psychiatric Exam Psychiatric exam: Normal Affect, Normal Mood - Skin Skin Exam: Dry, Intact, Normal Color, Warm Discharge Plan - Follow Up Plan Condition: GOOD Disposition: HOME/ ROUTINE
[2018-06-14 16:30] VITALS: PULSE 79; O2SAT 98
[2018-06-14 16:48] LABS: CALCIUM 8.9 mg/dl (8.6-10.4)
[2018-06-14 18:22] VITALS: BP 152/75
[2018-06-14 19:57] LABS: ALBUMIN (PEP) 3.2 g/dL (3.8-4.8); ALPHA-1-GLOBULIN (PEP) 0.4 g/dL (0.2-0.3)
== END 2018-06-14 19:01 | disposition home or self-care (01) | DRG 194 ==
LOC: C.ER 20:08 → C.9E 22:15 → C.5S 06-06 10:15
PROVIDERS: ADMIT Internal Medicine; ATTEND Internal Medicine
PROC: 0W993ZZ Drainage of Right Pleural Cavity, Percutaneous Approach (ICD-10-PCS; principal; 2018-06-08)
PROC: BB4BZZZ Ultrasonography of Pleura (ICD-10-PCS; 2018-06-08)
DX: I13.0 Hypertensive heart and chronic kidney disease with heart failure and stage 1 through stage 4 chronic kidney disease, or unspecified chronic kidney disease (principal); J96.91 Respiratory failure, unspecified with hypoxia; J18.9 Pneumonia, unspecified organism; I50.43 Acute on chronic combined systolic (congestive) and diastolic (congestive) heart failure; N17.0 Acute kidney failure with tubular necrosis; J90 Pleural effusion, not elsewhere classified; E11.22 Type 2 diabetes mellitus with diabetic chronic kidney disease; J84.10 Pulmonary fibrosis, unspecified; Q21.1 Atrial septal defect; E87.5 Hyperkalemia; E83.39 Other disorders of phosphorus metabolism; I25.10 Atherosclerotic heart disease of native coronary artery without angina pectoris; J44.0 Chronic obstructive pulmonary disease with (acute) lower respiratory infection; I08.0 Rheumatic disorders of both mitral and aortic valves; J98.01 Acute bronchospasm; K59.00 Constipation, unspecified; M81.0 Age-related osteoporosis without current pathological fracture; M89.9 Disorder of bone, unspecified; N18.9 Chronic kidney disease, unspecified; F41.9 Anxiety disorder, unspecified; D86.9 Sarcoidosis, unspecified; Z79.4 Long term (current) use of insulin; Z79.82 Long term (current) use of aspirin; Z79.899 Other long term (current) drug therapy; Z87.01 Personal history of pneumonia (recurrent); Z87.891 Personal history of nicotine dependence; Z95.1 Presence of aortocoronary bypass graft; Z95.5 Presence of coronary angioplasty implant and graft

== ENCOUNTER 2018-06-23 08:12 | Inpatient (IN) | payer MEDICAID ==
[2018-06-23 08:12] VITALS: BMI 25.8
--- NOTE | 2018-06-23 08:38 | C.PDOC ---
History Of Present Illness 78 y/o F c PMHx CHF, HTN, NSTEMI, COPD p/w shortness of breath upon awakening this morning. Reports chest pain as well and denies fever. EMS started patient on CPAP, 2 nitro sprays, ASA, Lasix 20. Full HPI/ROS unobtainable due to pat ient's condition. Time Seen by Provider: 06/23/18 08:13 Chief Complaint (Nursing): Shortness Of Breath Past Medical History Vital Signs: Last Vital Signs Temp Pulse 111 H 06/23/18 08:13 Resp 34 H 06/23/18 08:13 BP 177/95 H 06/23/18 08:26 Pulse Ox 100 06/23/18 08:13 - Medical History PMH: CAD, CHF, COPD, Diabetes, HTN, Hyperlipidemia, Osteoporosis, Pneumonia, Chronic Kidney Disease Surgical History: CABG (Triple Bypass; CABG 08/2014 [facility] [place] Coronary Stent - [facility] DRAINAGE OF RIGHT PLEURAL CAVITY, PERCUTANEOUS APPROACH (06/05/18) LEFT HEART CARDIAC CATH (08/07/14) LT HEART ANGIOCARDIOGRAM (08/07/14) ULTRASONOGRAPHY OF PLEURA (06/05/18) Family History: States: Unknown Family Hx - Social History Hx Tobacco Use: Yes Hx Alcohol Use: No Hx Substance Use: No - Immunization History Hx Tetanus Toxoid Vaccination: No Hx Influenza Vaccination: Yes Hx Pneumococcal Vaccination: Yes Review Of Systems Review Of Systems: ROS cannot be obtained secondary to pt's inabilty to answer questions. Physical Exam - Physical Exam Additional Physical Exam Comments: Constitutional: No acute distress. Head: Normocephalic. Atraumatic. Eyes: PERRL. ENT: Moist mucous membranes. Neck: Supple.JVD Cardiovascular: Tachycardic. Radial pulse 2+ bilaterally. Chest: No tenderness. Respiratory: Bilateral crackles. GI: Soft. Nontender. Nondistended. Back: No CVA tenderness. Musculoskeletal: Pitting edema bilaterally.No tenderness of extremities. Skin: No rash. Neurologic: Alert, no focal deficit. ED Course And Treatment - Laboratory Results Result Diagrams: 06/23/18 08:31 06/23/18 08:31 O2 Sat by Pulse Oximetry: 100 Medical Decision Making Medical Decision Making: BiPap initiated immediately, SL nitro and Lasix additional 60mg. EKG Sinus rhythm, 104 bpm, no ST elevations, ST depressions/T wave inversions la teral. CXR pleural effusions, pulmonary edema. Dr. Rodriguez accepts patient to his service. [employer] [place] hand off given. Disposition - Disposition Disposition: HOSPITALIZED Disposition Time: 09:55 Condition: GUARDED Forms: [facility] (Cameroonian) - Clinical Impression Clinical Impression: CHF exacerbation
[2018-06-23 08:43] LABS: BASO % 0.5 % (0.0-2.0); EOS # 0.1 K/uL (0.0-0.7); EOS % 1.4 % (0.0-4.0); HEMOGLOBIN 12.9 g/dL (11.0-16.0); LYMPH # 1.2 K/uL (1.0-4.3); LYMPH % 11.5 % (20.0-40.0); MEAN CELL VOLUME 90.8 fL (81.0-99.0); MEAN CORPUSCULAR HEMOGLOBIN 29.6 pg (27.0-31.0); MEAN CORPUSCULAR HGB CONC 32.6 g/dL (33.0-37.0); MEAN PLATELET VOLUME 10.2 fL (7.2-11.7); MONO # 0.8 K/uL (0.0-0.8); MONO % 8.2 % (0.0-10.0); NEUT # 7.9 K/uL (1.8-7.0); NEUT % 78.4 % (50.0-75.0); RBC 4.36 Mil/uL (3.80-5.20); WHITE BLOOD COUNT 10.1 K/uL (4.8-10.8)
[2018-06-23 08:47] LABS: INR 0.9; PROTHROMBIN TIME 10.3 SECONDS (9.7-12.2)
[2018-06-23 09:04] LABS: ALB/GLOB RATIO 1.1 (1.0-2.1); ALBUMIN 3.5 g/dL (3.5-5.0); CALCIUM 8.4 mg/dl (8.6-10.4)
[2018-06-23 09:05] LABS: CK-MB 2.46 ng/mL (0.0-3.38); TROPONIN I 0.034 ng/mL (0.00-0.120)
[2018-06-23 09:49] LABS: SQUAMOUS EPITHIAL 3 /hpf (0-5); URINE BILIRUBIN NEGATIVE (NEGATIVE); URINE BLOOD NEGATIVE (NEGATIVE); URINE CLARITY Clear (Clear); URINE COLOR Straw (YELLOW); URINE GLUCOSE (UA) 2+ mg/dL (Normal); URINE LEUKOCYTE ESTERASE NEG Leu/uL (Negative); URINE PROTEIN 2+ mg/dL (NEGATIVE); URINE UROBILINOGEN NORMAL mg/dL (0.2-1.0)
--- NOTE | 2018-06-23 11:26 | RAD ---
Date of service: 06/23/2018 HISTORY: dyspnea COMPARISON: 06/09/2018. FINDINGS: LUNGS: There is worsening pulmonary venous congestion and interstitial edema in the lungs with interval development of presumable pulmonary edema. There is redemonstration of calcified mediastinal and hilar lymph nodes, sequela of remote infection. PLEURA: Worsening bilateral pleural effusions. No pneumothorax. CARDIOVASCULAR: Persistent moderate cardiomegaly. Status post CABG. There are aortic atherosclerotic calcifications present. OSSEOUS STRUCTURES: Within normal limits for the patient's age. VISUALIZED UPPER ABDOMEN: Normal. OTHER FINDINGS: None. IMPRESSION: Worsening congestive heart failure.
[2018-06-23] MEDS ORDERED: Albuterol HFA 90 mcg/actuation (8 g) IH SCH (11:45)
--- NOTE | 2018-06-23 13:20 | CP.PCM.HP ---
History of Present Illness - History of Present Illness History of Present Illness: PGY1 history and physical for Dr. Rodriguez This is a 78 year old female with PMH of HFrEF, CAD (CABG 2014), HTN, IDDM2, osteoporosis, pneumonia who presents with worsening shortness of breath over the past 2 days. She states that the difficulty breathing was the worst today, prompting her to come to the ED. Recent admission 06/05/18-06/14/18 for chf exacerbation and pneumonia with pleural effusions. She reports that she has been taking her home medications. She endorses increased lower extremity swelling over the past 2 days, and some dizziness on walking. Pt denies syncope, fever, chills, palpitations, cough, headache, numbness or tingling, abdominal pain, n/v/d. She continues to have midsternal chest and left rib discomfort due to fall at the end of May. Pt given ASA 325 mg PO, lasix 60 mg IVP, NTG 0.4 SL, and was given BPAP. Pt reports feeling better when I evaluated her, and she was no longer on BPAP. PMD: Michael Cardiology: [facility] PMH:PMH of CAD (CABG 2014), CHF, HTN, IDDM2, osteoporosis, pneumonia PSH: CABG 08/2014 Meds: Albutrol pump, Insulin which she takes at no consistent dose, otherwise noncompliant with medications Allx: PCN (rash and difficulty breathing) FHx: denies SHx: Lives alone in an apartment complex for the elderly. Occasional etoh use. quit smoking 2 years ago, 20+ pack year history. Uses a walker to ambulate. Present on Admission - Present on Admission Any Indicators Present on Admission: No Review of Systems - Review of Systems All systems: reviewed and no additional remarkable complaints except (as per HPI) Past Patient History - Infectious Disease Hx of Infectious Diseases: None - Past Medical History & Family History Past Medical History?: Yes - Past Social History Smoking Status: Light Smoker < 10 Cigarettes Daily - CARDIAC Hx Congestive Heart Failure: Yes Hx Hypertension: Yes - PULMONARY Hx Chronic Obstructive Pulmonary Disease (COPD): Yes Hx Pneumonia: Yes - NEUROLOGICAL Hx Neurological Disorder: No - HEENT Hx HEENT Problems: Yes Hx Cataracts: Yes (cataract sx 2009) Other/Comment: had cataract surgery-2009 - RENAL Hx Chronic Kidney Disease: Yes - ENDOCRINE/METABOLIC Hx Diabetes Mellitus Type 2: Yes - HEMATOLOGICAL/ONCOLOGICAL Hx Blood Disorders: No - INTEGUMENTARY Hx Dermatological Problems: No - MUSCULOSKELETAL/RHEUMATOLOGICAL Hx Osteoporosis: Yes - GASTROINTESTINAL Hx Gastrointestinal Disorders: No - GENITOURINARY/GYNECOLOGICAL Hx Genitourinary Disorders: No - PSYCHIATRIC Hx Substance Use: No - SURGICAL HISTORY Hx Coronary Artery Bypass Graft: Yes (Triple Bypass; CABG 08/2014 [facility] [place] Hx Coronary Stent: Yes - ANESTHESIA Hx Anesthesia: Yes Hx Anesthesia Reactions: No Hx Malignant Hyperthermia: No Meds Allergies/Adverse Reactions: Allergies Allergy/AdvReac Type Severity Reaction Status Date / Time Penicillins Allergy Verified 06/23/18 08:20 Physical Exam - Constitutional Appears: Non-toxic, No Acute Distress - Head Exam Head Exam: ATRAUMATIC, NORMAL INSPECTION - Eye Exam Eye Exam: EOMI, Normal appearance - ENT Exam ENT Exam: Mucous Membranes Moist - Respiratory Exam Respiratory Exam: Chest Wall Tenderness (midsternal, left rib pain), Clear to Auscultation Bilateral, Rales, Wheezes, NORMAL BREATHING PATTERN. absent: Rhonchi, Respiratory Distress - Cardiovascular Exam Cardiovascular Exam: REGULAR RHYTHM, +S1, +S2. absent: Tachycardia - GI/Abdominal Exam GI & Abdominal Exam: Normal Bowel Sounds, Soft. absent: Distended, Firm, Guarding, Rebound, Rigid, Tenderness - Extremities Exam Extremities exam: Positive for: normal capillary refill, pedal edema (2+ pitting edema to the knees bilaterally), pedal pulses present. Negative for: calf tenderness - Back Exam Back exam: NORMAL INSPECTION. absent: CVA tenderness (L), CVA tenderness (R) - Neurological Exam Neurological exam: Alert, Oriented x3 - Psychiatric Exam Psychiatric exam: Normal Affect, Normal Mood - Skin Skin Exam: Dry, Normal Color, Warm Results - Vital Signs Recent Vital Signs: Last Vital Signs Temp 97.6 F 06/23/18 12:16 Pulse 99 H 06/23/18 12:16 Resp 20 06/23/18 12:16 BP 160/79 H 06/23/18 12:16 Pulse Ox 97 06/23/18 12:16 - Labs Result Diagrams: 06/23/18 08:31 06/23/18 08:31 Labs: Laboratory Results - last 24 hr 06/23/18 06/23/18 06/23/18 08:31 08:31 08:31 WBC 10.1 RBC 4.36 Hgb 12.9 Hct 39.6 MCV 90.8 MCH 29.6 MCHC 32.6 L RDW 15.0 H Plt Count 248 MPV 10.2 Neut % (Auto) 78.4 H Lymph % (Auto) 11.5 L [place] % (Auto) 8.2 Eos % (Auto) 1.4 Baso % (Auto) 0.5 Neut # (Auto) 7.9 H Lymph # (Auto) 1.2 [place] # (Auto) 0.8 Eos # (Auto) 0.1 Baso # (Auto) 0.0 PT 10.3 INR 0.9 APTT 34 Sodium 138 Potassium 4.7 Chloride 102 Carbon Dioxide 27 Anion Gap 14 BUN 35 H Creatinine 1.6 H Est GFR ( Amer) 38 Est GFR (Non-Af Amer) 31 Random Glucose 294 H Calcium 8.4 L Phosphorus 4.5 Magnesium 1.9 Total Bilirubin 0.4 AST 68 H D ALT 47 Alkaline Phosphatase 106 Total Creatine Kinase 43 CK-MB (Mass) 2.46 Troponin I 0.0340 NT-Pro-B Natriuret Pep 9010 H Total Protein 6.9 Albumin 3.5 Globulin 3.3 Albumin/Globulin Ratio 1.1 Urine Color Urine Clarity Urine pH Ur Specific [place] Urine Protein Urine Glucose (UA) Urine Ketones Urine Blood Urine Nitrate Urine Bilirubin Urine Urobilinogen Ur Leukocyte Esterase Urine WBC (Auto) Urine RBC (Auto) Ur Squamous Epith Cells Hyaline Casts 06/23/18 09:37 WBC RBC Hgb Hct MCV MCH MCHC RDW Plt Count MPV Neut % (Auto) Lymph % (Auto) [place] % (Auto) Eos % (Auto) Baso % (Auto) Neut # (Auto) Lymph # (Auto) [place] # (Auto) Eos # (Auto) Baso # (Auto) PT INR APTT Sodium Potassium Chloride Carbon Dioxide Anion Gap BUN Creatinine Est GFR ( Amer) Est GFR (Non-Af Amer) Random Glucose Calcium Phosphorus Magnesium Total Bilirubin AST ALT Alkaline Phosphatase Total Creatine Kinase CK-MB (Mass) Troponin I NT-Pro-B Natriuret Pep Total Protein Albumin Globulin Albumin/Globulin Ratio Urine Color Straw Urine Clarity Clear Urine pH 7.0 Ur Specific [place] 1.009 Urine Protein 2+ H Urine Glucose (UA) 2+ H Urine Ketones Negative Urine Blood Negative Urine Nitrate Negative Urine Bilirubin Negative Urine Urobilinogen Normal Ur Leukocyte Esterase Neg Urine WBC (Auto) 1 Urine RBC (Auto) 1 Ur Squamous Epith Cells 3 Hyaline Casts 3-5 H Assessment & Plan - Assessment and Plan (Free Text) Assessment: This is a 78 year old female with PMH of CAD (CABG 2014), HTN, IDDM2, osteoporosis, pneumonia who presents with shortness of breath over the past 2 days, with increased leg swelling. Pt found to be in acute CHF exacerbation in the ED and was treated with Lasix, BPAP Plan: HFrEF, acute on chronic EKG Sinus rhythm, 104 bpm, no ST elevations, ST depressions/T wave inversions lateral. Looks similar to previous EKG during last admission. CXR shows s/p CABG, pulmonary edema, cardiomegaly. Pt treated with Lasix 60 mg IVP in the ED, with symptomatic relief. Also placed on BPAP for some time. 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 Rodriguez
[2018-06-23] MEDS ORDERED: Glucagon Recombinant 1 mg Inj IM PRN (13:27)
[2018-06-23] MEDS ORDERED: Dextrose 50% SYRINGE Inj (50 ml) IV PRN (13:27)
[2018-06-23 14:09] LABS: CK-MB 2.51 ng/mL (0.0-3.38); TROPONIN I 0.053 ng/mL (0.00-0.120)
[2018-06-23] MEDS ORDERED: Mometasone 110 mcg/puff-30 puff Inh INH SCH (16:00)
[2018-06-23] MEDS: Digoxin 125 mcg (0.125 mg) Tab PO SCH (17:26)
[2018-06-23] MEDS: (Novolin R) Insulin Human Regular 100 units/ml vial SC SCH ×2 (17:27→21:40)
[2018-06-23] MEDS: Albuterol-Ipratrop 3 mg / 0.5 (3 ml) UD INH SCH (19:36)
[2018-06-23 19:59] LABS: CK-MB 2.14 ng/mL (0.0-3.38); TROPONIN I 0.048 ng/mL (0.00-0.120)
[2018-06-23] MEDS ORDERED: (Novolog) Insulin Aspart, Recombinant 100 u/ml 10 ml vial SC SCH ×2 (22:00)
[2018-06-24] MEDS: Albuterol-Ipratrop 3 mg / 0.5 (3 ml) UD INH SCH ×4 (01:33→19:55)
[2018-06-24 08:04] LABS: BASO # 0.1 K/uL (0.0-0.2); BASO % 0.9 % (0.0-2.0); EOS # 0.2 K/uL (0.0-0.7); EOS % 2.9 % (0.0-4.0); HEMOGLOBIN 12.1 g/dL (11.0-16.0); LYMPH # 1.2 K/uL (1.0-4.3); LYMPH % 17.2 % (20.0-40.0); MEAN CELL VOLUME 90.2 fL (81.0-99.0); MEAN CORPUSCULAR HEMOGLOBIN 29.9 pg (27.0-31.0); MEAN CORPUSCULAR HGB CONC 33.1 g/dL (33.0-37.0); MEAN PLATELET VOLUME 9.8 fL (7.2-11.7); MONO # 0.6 K/uL (0.0-0.8); MONO % 8.4 % (0.0-10.0); NEUT # 5.1 K/uL (1.8-7.0); NEUT % 70.6 % (50.0-75.0); RBC 4.06 Mil/uL (3.80-5.20); RED CELL DISTRIBUTION WIDTH 15.2 % (11.5-14.5); WHITE BLOOD COUNT 7.2 K/uL (4.8-10.8)
[2018-06-24] MEDS: (Novolin R) Insulin Human Regular 100 units/ml vial SC SCH ×4 (08:30→21:43)
[2018-06-24 08:43] LABS: ALB/GLOB RATIO 1.1 (1.0-2.1); CALCIUM 8.2 mg/dl (8.6-10.4)
--- NOTE | 2018-06-24 13:18 | RAD ---
Date of service: 06/24/2018 HISTORY: f/u COMPARISON: No prior. TECHNIQUE: Chest PA and lateral FINDINGS: LUNGS: Mild pulmonary venous congestive changes slightly improved from prior study with bibasilar atelectasis.. Persistent bilateral effusions right larger than left. PLEURA: As above. No apparent pneumothorax CARDIOVASCULAR: Mild aortic atherosclerotic calcification present. Heart appears enlarged. Extensive mediastinal and hilar calcified adenopathy suggestive of prior exposure to a granulomatous disease process.. OSSEOUS STRUCTURES: No significant abnormalities. VISUALIZED UPPER ABDOMEN: Normal. OTHER FINDINGS: None. IMPRESSION: Slightly improved pulmonary venous congestive changes. Small bilateral effusions right greater than left. Again noted are extensive calcified mediastinal and hilar lymph nodes.
--- NOTE | 2018-06-24 14:59 | CP.PCM.PN ---
Subjective - Date & Time of Evaluation Date of Evaluation: 06/24/18 Time of Evaluation: 14:56 - Subjective Subjective: [place] [employer] PGY1 Progress Note for Dr. Rodriguez Patient was examined at bedside this morning. She reports improvement in her breathing. She denies headache, dizziness, nausea, vomiting, diarrhea, or dysuria. She complains of reproducible chest pain. Objective - Vital Signs/Intake and Output Vital Signs (last 24 hours): Temp Pulse Resp BP Pulse Ox 97.2 F L 85 18 132/73 97 06/24/18 07:25 06/24/18 14:16 06/24/18 07:25 06/24/18 10:29 06/24/18 07:25 - Medications Medications: Current Medications Albuterol/Ipratropium (Duoneb 3 Mg/0.5 Mg (3 Ml) Ud) 3 ml INH RQ6 [facility] Last Admin: 06/24/18 13:35 Dose: 3 ml Aspirin (Aspirin Chewable) 81 mg PO DAILY [facility] Last Admin: 06/24/18 10:29 Dose: 81 mg Carvedilol (Coreg) 6.25 mg PO BID [facility] Last Admin: 06/24/18 10:00 Dose: Not Given Dextrose (Dextrose 50% Inj) 0 ml IV STAT PRN; Protocol PRN Reason: Hypoglycemia Protocol Dextrose (Glutose 15) 0 gm PO ONCE PRN; Protocol PRN Reason: Hypoglycemia Protocol Digoxin (Digoxin) 0.125 mg PO DAILY@1800 [facility] Last Admin: 06/23/18 17:26 Dose: 0.125 mg Furosemide (Lasix) 40 mg IVP Q12 [facility] Last Admin: 06/24/18 10:29 Dose: 40 mg Glucagon (Glucagen Diagnostic Kit) 0 mg IM STAT PRN; Protocol PRN Reason: Hypoglycemia Protocol Heparin Sodium (Porcine) (Heparin) 5,000 units SC Q12 [facility] Last Admin: 06/24/18 10:29 Dose: 5,000 units Dextrose (Dextrose 5% In Water 1000 Ml) 1,000 mls @ 0 mls/hr IV .Q0M PRN; Protocol PRN Reason: Hypoglycemia Protocol Insulin Human Regular (Novolin R) 0 unit SC ACHS [facility]; Protocol Last Admin: 06/24/18 13:45 Dose: 3 units Lisinopril (Zestril) 10 mg PO DAILY [facility] Last Admin: 06/24/18 10:29 Dose: 10 mg Mometasone Furoate (Asmanex Twisthaler 110 Mcg) 1 puff INH RBID [facility] Rosuvastatin Calcium (Crestor) 10 mg PO HS [facility] Last Admin: 06/23/18 22:03 Dose: 10 mg Spironolactone (Aldactone) 25 mg PO BID [facility] Last Admin: 06/24/18 10:29 Dose: 25 mg - Labs Labs: 06/24/18 07:03 06/24/18 07:03 PT 10.3 SECONDS (9.7-12.2) 06/23/18 08:31 INR 0.9 06/23/18 08:31 APTT 34 SECONDS (21-34) 06/23/18 08:31 - Constitutional Appears: Well, No Acute Distress - Head Exam Head Exam: ATRAUMATIC, NORMOCEPHALIC - Eye Exam Eye Exam: EOMI, Normal appearance Pupil Exam: NORMAL ACCOMODATION - ENT Exam ENT Exam: Normal Exam - Respiratory Exam Respiratory Exam: Rhonchi, Wheezes, NORMAL BREATHING PATTERN. absent: Rales, Respiratory Distress - Cardiovascular Exam Cardiovascular Exam: REGULAR RHYTHM, +S1, +S2. absent: Gallop, Rubs Additional comments: tenderness to palpation of sternum - GI/Abdominal Exam GI & Abdominal Exam: Soft. absent: Distended, Tenderness - Extremities Exam Extremities Exam: Pedal Edema - Neurological Exam Neurological Exam: Alert, Awake, Oriented x3 - Psychiatric Exam Psychiatric exam: Normal Affect, Normal Mood - Skin Skin Exam: Normal Color Assessment and Plan - Assessment and Plan (Free Text) Assessment: This is a 78 year old female with PMH of CAD (CABG 2014), HTN, IDDM2, osteoporosis, pneumonia who presents with shortness of breath over the past 2 days, with increased leg swelling. Pt found to be in acute CHF exacerbation in the ED and was treated with Lasix, BPAP Plan: HFrEF, acute on chronic EKG: Sinus rhythm, 104 bpm, no ST elevations, ST depressions/T wave inversions lateral. Looks similar to previous EKG during last admission. CXR today: slightly improved pulmonary venous congestive changes. small b/l effusions R>L. 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 Rodriguez
--- NOTE | 2018-06-24 16:41 | CARD ---
APPROVED REPORT Date of service: 06/23/2018 EKG Measurement Heart [id number] ID [id number] <Conclusion> Sinus rhythm with occasional premature ventricular complexes Biatrial enlargement Possible Inferior infarct, age undetermined Anterior infarct, age undetermined T wave abnormality, consider lateral ischemia Prolonged QT Abnormal ECG
--- NOTE | 2018-06-24 16:41 | CARD ---
APPROVED REPORT Date of service: 06/23/2018 EKG Measurement Heart [id number] IA [id number] <Conclusion> Normal sinus rhythm Possible Left atrial enlargement Possible Inferior infarct, age undetermined Cannot rule out Anterior infarct, age undetermined T wave abnormality, consider lateral ischemia Prolonged QT Abnormal ECG
--- NOTE | 2018-06-24 16:43 | CARD ---
APPROVED REPORT Date of service: 06/23/2018 EKG Measurement Heart [id number] <Conclusion> Sinus tachycardia with occasional premature ventricular complexes Possible Left atrial enlargement Anterior infarct, age undetermined ST & T wave abnormality, consider lateral ischemia Abnormal ECG
[2018-06-24] MEDS: Digoxin 125 mcg (0.125 mg) Tab PO SCH (17:52)
[2018-06-25] MEDS: Albuterol-Ipratrop 3 mg / 0.5 (3 ml) UD INH SCH ×4 (01:27→20:33)
[2018-06-25 06:47] LABS: BASO % 0.7 % (0.0-2.0); EOS # 0.2 K/uL (0.0-0.7); EOS % 2.7 % (0.0-4.0); HEMOGLOBIN 11.6 g/dL (11.0-16.0); LYMPH % 16.2 % (20.0-40.0); MEAN CELL VOLUME 89.7 fL (81.0-99.0); MEAN CORPUSCULAR HEMOGLOBIN 29.2 pg (27.0-31.0); MEAN CORPUSCULAR HGB CONC 32.5 g/dL (33.0-37.0); MEAN PLATELET VOLUME 9.6 fL (7.2-11.7); MONO # 0.5 K/uL (0.0-0.8); MONO % 8.1 % (0.0-10.0); NEUT # 4.5 K/uL (1.8-7.0); NEUT % 72.3 % (50.0-75.0); RBC 3.97 Mil/uL (3.80-5.20); RED CELL DISTRIBUTION WIDTH 15.3 % (11.5-14.5); WHITE BLOOD COUNT 6.2 K/uL (4.8-10.8)
[2018-06-25 06:55] LABS: ALB/GLOB RATIO 1.1 (1.0-2.1); ALBUMIN 2.8 g/dL (3.5-5.0); CALCIUM 7.9 mg/dl (8.6-10.4)
--- NOTE | 2018-06-25 09:23 | CP.PCM.PN ---
Subjective - Date & Time of Evaluation Date of Evaluation: 06/25/18 Time of Evaluation: 09:23 - Subjective Subjective: PGY-2 Progress Note: Dr. Rodriguez Service Patient seen and examined at bedside. Per nursing no acute events occurred overnight. Patient reports feeling better during today's examination. She does report some chest pain but much improved since yesterday. He denies any dizziness, changes in vision, headaches, nausea, vomiting, chest pain, shortness of breath, syncopal episodes, or any other complaints. Objective - Vital Signs/Intake and Output Vital Signs (last 24 hours): Temp Pulse Resp BP Pulse Ox 97.9 F 91 H 20 134/73 95 06/25/18 07:00 06/25/18 07:00 06/25/18 07:00 06/25/18 07:00 06/25/18 07:00 Intake and Output: 06/25/18 06/25/18 06:59 18:59 Intake Total 400 Balance 400 - Medications Medications: Current Medications Albuterol/Ipratropium (Duoneb 3 Mg/0.5 Mg (3 Ml) Ud) 3 ml INH RQ6 [facility] Last Admin: 06/25/18 07:40 Dose: 3 ml Aspirin (Aspirin Chewable) 81 mg PO DAILY [facility] Last Admin: 06/24/18 10:29 Dose: 81 mg Carvedilol (Coreg) 6.25 mg PO BID [facility] Last Admin: 06/24/18 17:52 Dose: 6.25 mg Dextrose (Dextrose 50% Inj) 0 ml IV STAT PRN; Protocol PRN Reason: Hypoglycemia Protocol Dextrose (Glutose 15) 0 gm PO ONCE PRN; Protocol PRN Reason: Hypoglycemia Protocol Digoxin (Digoxin) 0.125 mg PO DAILY@1800 [facility] Last Admin: 06/24/18 17:52 Dose: 0.125 mg Furosemide (Lasix) 40 mg IVP Q12 [facility] Last Admin: 06/24/18 21:03 Dose: 40 mg Glucagon (Glucagen Diagnostic Kit) 0 mg IM STAT PRN; Protocol PRN Reason: Hypoglycemia Protocol Heparin Sodium (Porcine) (Heparin) 5,000 units SC Q12 [facility] Last Admin: 06/24/18 21:03 Dose: 5,000 units Dextrose (Dextrose 5% In Water 1000 Ml) 1,000 mls @ 0 mls/hr IV .Q0M PRN; Protocol PRN Reason: Hypoglycemia Protocol Insulin Human Regular (Novolin R) 0 unit SC ACHS [facility]; Protocol Last Admin: 06/24/18 21:43 Dose: Not Given Lisinopril (Zestril) 10 mg PO DAILY [facility] Last Admin: 06/24/18 10:29 Dose: 10 mg Mometasone Furoate (Asmanex Twisthaler 110 Mcg) 1 puff INH RBID [facility] Rosuvastatin Calcium (Crestor) 10 mg PO HS [facility] Last Admin: 06/24/18 21:03 Dose: 10 mg Spironolactone (Aldactone) 25 mg PO BID [facility] Last Admin: 06/24/18 17:52 Dose: 25 mg - Labs Labs: 06/25/18 06:28 06/25/18 06:28 PT 10.3 SECONDS (9.7-12.2) 06/23/18 08:31 INR 0.9 06/23/18 08:31 APTT 34 SECONDS (21-34) 06/23/18 08:31 - Head Exam Head Exam: ATRAUMATIC, NORMAL INSPECTION - Eye Exam Eye Exam: EOMI, Normal appearance, PERRL Pupil Exam: NORMAL ACCOMODATION - ENT Exam ENT Exam: Mucous Membranes Moist, Normal Oropharynx - Respiratory Exam Respiratory Exam: Clear to Ausculation Bilateral, NORMAL BREATHING PATTERN. absent: Respiratory Distress - Cardiovascular Exam Cardiovascular Exam: REGULAR RHYTHM, +S1, +S2 - GI/Abdominal Exam GI & Abdominal Exam: Soft, Normal Bowel Sounds. absent: Hyperactive Bowel Sounds - Extremities Exam Extremities Exam: Full ROM, Normal Inspection. absent: Pedal Edema - Back Exam Back Exam: NORMAL INSPECTION. absent: CVA tenderness (R), paraspinal tenderness - Neurological Exam Neurological Exam: Alert, Awake, Oriented x3 - Psychiatric Exam Psychiatric exam: Normal Affect, Normal Mood - Skin Skin Exam: Dry, Intact Assessment and Plan - Assessment and Plan (Free Text) Assessment: This is a 78 year old female with PMH of CAD (CABG 2014), HTN, IDDM2, osteoporosis, pneumonia who presents with shortness of breath over the past 2 days, with increased leg swelling. Pt found to be in acute CHF exacerbation in the ED and was treated with Lasix, BPAP Plan: HFrEF, acute on chronic EKG: Sinus rhythm, 104 bpm, no ST elevations, ST depressions/T wave inversions lateral. Looks similar to previous EKG during last admission. CXR today: slightly improved pulmonary venous congestive changes. small b/l effusions R>L. 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 Case discussed with Dr. Rodriguez
[2018-06-25] MEDS: (Novolin R) Insulin Human Regular 100 units/ml vial SC SCH ×4 (09:24→21:01)
[2018-06-25] MEDS: Digoxin 125 mcg (0.125 mg) Tab PO SCH (17:18)
[2018-06-26] MEDS: Albuterol-Ipratrop 3 mg / 0.5 (3 ml) UD INH SCH ×4 (01:35→21:22)
--- NOTE | 2018-06-26 07:57 | CP.PCM.PN ---
Subjective - Date & Time of Evaluation Date of Evaluation: 06/26/18 Time of Evaluation: 07:57 - Subjective Subjective: PGY-2 Progress Note: Dr. Rodriguez Service Patient seen and examined at bedside. Per nursing no acute events occurred overnight. Patient reports feeling better during today's examination . She denies any dizziness, changes in vision, headaches, nausea, vomiting, chest pain, shortness of breath, syncopal episodes, or any other complaints. Objective - Vital Signs/Intake and Output Vital Signs (last 24 hours): Temp Pulse Resp BP Pulse Ox 97.8 F 84 20 131/74 97 06/26/18 00:00 06/26/18 01:00 06/26/18 00:00 06/26/18 00:00 06/26/18 00:00 Intake and Output: 06/26/18 06/26/18 06:59 18:59 Intake Total 600 Balance 600 - Medications Medications: Current Medications Albuterol/Ipratropium (Duoneb 3 Mg/0.5 Mg (3 Ml) Ud) 3 ml INH RQ6 [facility] Last Admin: 06/26/18 01:35 Dose: Not Given Aspirin (Aspirin Chewable) 81 mg PO DAILY [facility] Last Admin: 06/25/18 09:54 Dose: 81 mg Carvedilol (Coreg) 6.25 mg PO BID [facility] Last Admin: 06/25/18 17:19 Dose: 6.25 mg Dextrose (Dextrose 50% Inj) 0 ml IV STAT PRN; Protocol PRN Reason: Hypoglycemia Protocol Dextrose (Glutose 15) 0 gm PO ONCE PRN; Protocol PRN Reason: Hypoglycemia Protocol Digoxin (Digoxin) 0.125 mg PO DAILY@1800 [facility] Last Admin: 06/25/18 17:18 Dose: 0.125 mg Furosemide (Lasix) 40 mg IVP Q12 [facility] Last Admin: 06/25/18 15:03 Dose: Not Given Furosemide (Lasix) 40 mg PO DAILY [facility] Glucagon (Glucagen Diagnostic Kit) 0 mg IM STAT PRN; Protocol PRN Reason: Hypoglycemia Protocol Heparin Sodium (Porcine) (Heparin) 5,000 units SC Q12 [facility] Last Admin: 06/25/18 21:00 Dose: 5,000 units Dextrose (Dextrose 5% In Water 1000 Ml) 1,000 mls @ 0 mls/hr IV .Q0M PRN; Protocol PRN Reason: Hypoglycemia Protocol Insulin Human Regular (Novolin R) 0 unit SC ACHS [facility]; Protocol Last Admin: 06/25/18 21:01 Dose: Not Given Lisinopril (Zestril) 10 mg PO DAILY [facility] Last Admin: 06/25/18 09:54 Dose: 10 mg Mometasone Furoate (Asmanex Twisthaler 110 Mcg) 1 puff INH RBID [facility] Pantoprazole Sodium (Protonix Inj) 40 mg IVP DAILY [facility] Rosuvastatin Calcium (Crestor) 10 mg PO HS [facility] Last Admin: 06/25/18 21:00 Dose: 10 mg Spironolactone (Aldactone) 25 mg PO BID [facility] Last Admin: 06/25/18 17:19 Dose: 25 mg - Labs Labs: 06/25/18 06:28 06/25/18 06:28 PT 10.3 SECONDS (9.7-12.2) 06/23/18 08:31 INR 0.9 06/23/18 08:31 APTT 34 SECONDS (21-34) 06/23/18 08:31 - Head Exam Head Exam: ATRAUMATIC, NORMAL INSPECTION - Eye Exam Eye Exam: EOMI, Normal appearance, PERRL Pupil Exam: NORMAL ACCOMODATION - ENT Exam ENT Exam: Mucous Membranes Moist, Normal Oropharynx - Respiratory Exam Respiratory Exam: Clear to Ausculation Bilateral, NORMAL BREATHING PATTERN. absent: Prolonged Expiratory Phase, Respiratory Distress - Cardiovascular Exam Cardiovascular Exam: REGULAR RHYTHM, +S1, +S2 - GI/Abdominal Exam GI & Abdominal Exam: Soft, Normal Bowel Sounds. absent: Hyperactive Bowel Sounds - Extremities Exam Extremities Exam: Full ROM. absent: Pedal Edema - Neurological Exam Neurological Exam: Alert, Awake, Oriented x3 - Psychiatric Exam Psychiatric exam: Normal Affect, Normal Mood. absent: Depressed - Skin Skin Exam: Dry, Intact Assessment and Plan - Assessment and Plan (Free Text) Assessment: This is a 78 year old female with PMH of CAD (CABG 2014), HTN, IDDM2, osteoporosis, pneumonia who presents with shortness of breath over the past 2 days, with increased leg swelling. Pt found to be in acute CHF exacerbation in the ED and was treated with Lasix, BPAP Plan: HFrEF, acute on chronic EKG: Sinus rhythm, 104 bpm, no ST elevations, ST depressions/T wave inversions lateral. Looks similar to previous EKG during last admission. CXR today: slightly improved pulmonary venous congestive changes. small b/l effusions R>L. 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 Case discussed with Dr. Rodriguez
[2018-06-26] MEDS: (Novolin R) Insulin Human Regular 100 units/ml vial SC SCH ×4 (08:40→21:14)
[2018-06-26 09:23] LABS: BASO % 0.7 % (0.0-2.0); EOS # 0.1 K/uL (0.0-0.7); EOS % 2.3 % (0.0-4.0); HEMOGLOBIN 11.8 g/dL (11.0-16.0); LYMPH % 15.3 % (20.0-40.0); MEAN CELL VOLUME 90.6 fL (81.0-99.0); MEAN CORPUSCULAR HEMOGLOBIN 29.8 pg (27.0-31.0); MEAN CORPUSCULAR HGB CONC 32.9 g/dL (33.0-37.0); MEAN PLATELET VOLUME 10.1 fL (7.2-11.7); MONO # 0.5 K/uL (0.0-0.8); MONO % 7.3 % (0.0-10.0); NEUT # 4.7 K/uL (1.8-7.0); NEUT % 74.4 % (50.0-75.0); RBC 3.97 Mil/uL (3.80-5.20); WHITE BLOOD COUNT 6.4 K/uL (4.8-10.8)
[2018-06-26 10:09] LABS: ALB/GLOB RATIO 1.1 (1.0-2.1); ALBUMIN 3.2 g/dL (3.5-5.0); CALCIUM 7.9 mg/dl (8.6-10.4)
[2018-06-26] MEDS: Digoxin 125 mcg (0.125 mg) Tab PO SCH (17:15)
[2018-06-27] MEDS: Albuterol-Ipratrop 3 mg / 0.5 (3 ml) UD INH SCH ×4 (03:05→19:29)
[2018-06-27 06:50] LABS: ALBUMIN 2.9 g/dL (3.5-5.0); CALCIUM 8.1 mg/dl (8.6-10.4)
[2018-06-27 07:00] LABS: BASO # 0.1 K/uL (0.0-0.2); BASO % 0.8 % (0.0-2.0); EOS # 0.1 K/uL (0.0-0.7); EOS % 2.2 % (0.0-4.0); HEMOGLOBIN 11.5 g/dL (11.0-16.0); LYMPH % 15.7 % (20.0-40.0); MEAN CELL VOLUME 89.4 fL (81.0-99.0); MEAN CORPUSCULAR HEMOGLOBIN 29.9 pg (27.0-31.0); MEAN CORPUSCULAR HGB CONC 33.4 g/dL (33.0-37.0); MEAN PLATELET VOLUME 9.8 fL (7.2-11.7); MONO # 0.4 K/uL (0.0-0.8); MONO % 7.3 % (0.0-10.0); NEUT # 4.5 K/uL (1.8-7.0); RBC 3.84 Mil/uL (3.80-5.20); RED CELL DISTRIBUTION WIDTH 14.6 % (11.5-14.5); WHITE BLOOD COUNT 6.1 K/uL (4.8-10.8)
[2018-06-27] MEDS: (Novolin R) Insulin Human Regular 100 units/ml vial SC SCH ×4 (07:40→21:15)
--- NOTE | 2018-06-27 09:21 | CP.PCM.DIS ---
Provider - Provider Date of Admission: 06/23/18 11:14 Attending physician: Earl Rodriguez Jr, MD Time Spent in preparation of Discharge (in minutes): 70 Hospital Course - Lab Results Lab Results: Micro Results 06/23/18 09:37 Urine Random Urine Culture - Final 10-50,000 CFU/ML. MULTIPLE SPECIES. PROBABLE CONTAMINATION. Most Recent Lab Values WBC 6.1 K/uL (4.8-10.8) 06/27/18 06:30 RBC 3.84 Mil/uL (3.80-5.20) 06/27/18 06:30 Hgb 11.5 g/dL (11.0-16.0) 06/27/18 06:30 Hct 34.3 % (34.0-47.0) 06/27/18 06:30 MCV 89.4 fL (81.0-99.0) 06/27/18 06:30 MCH 29.9 pg (27.0-31.0) 06/27/18 06:30 MCHC 33.4 g/dL (33.0-37.0) 06/27/18 06:30 RDW 14.6 % (11.5-14.5) H 06/27/18 06:30 Plt Count 237 K/uL (130-400) 06/27/18 06:30 MPV 9.8 fL (7.2-11.7) 06/27/18 06:30 Neut % (Auto) 74.0 % (50.0-75.0) 06/27/18 06:30 Lymph % (Auto) 15.7 % (20.0-40.0) L 06/27/18 06:30 [place] % (Auto) 7.3 % (0.0-10.0) 06/27/18 06:30 Eos % (Auto) 2.2 % (0.0-4.0) 06/27/18 06:30 Baso % (Auto) 0.8 % (0.0-2.0) 06/27/18 06:30 Neut # (Auto) 4.5 K/uL (1.8-7.0) 06/27/18 06:30 Lymph # (Auto) 1.0 K/uL (1.0-4.3) 06/27/18 06:30 [place] # (Auto) 0.4 K/uL (0.0-0.8) 06/27/18 06:30 Eos # (Auto) 0.1 K/uL (0.0-0.7) 06/27/18 06:30 Baso # (Auto) 0.1 K/uL (0.0-0.2) 06/27/18 06:30 PT 10.3 SECONDS (9.7-12.2) 06/23/18 08:31 INR 0.9 06/23/18 08:31 APTT 34 SECONDS (21-34) 06/23/18 08:31 Sodium 138 mmol/L (132-148) 06/27/18 06:30 Potassium 4.1 mmol/L (3.6-5.2) 06/27/18 06:30 Chloride 103 mmol/L (98-107) 06/27/18 06:30 Carbon Dioxide 31 mmol/L (22-30) H 06/27/18 06:30 Anion Gap 8 (10-20) L 06/27/18 06:30 BUN 34 mg/dL (7-17) H 06/27/18 06:30 Creatinine 1.7 mg/dL (0.7-1.2) H 06/27/18 06:30 Est GFR ( Amer) 35 06/27/18 06:30 Est GFR (Non-Af Amer) 29 06/27/18 06:30 POC Glucose (mg/dL) 130 mg/dL (65-110) H 06/27/18 06:44 Random Glucose 125 mg/dL (65-105) H D 06/27/18 06:30 Calcium 8.1 mg/dl (8.6-10.4) L 06/27/18 06:30 Phosphorus 4.4 mg/dL (2.5-4.5) 06/27/18 06:30 Magnesium 1.7 mg/dL (1.6-2.3) 06/27/18 06:30 Total Bilirubin 0.4 mg/dL (0.2-1.3) 06/27/18 06:30 AST 14 U/L (14-36) 06/27/18 06:30 ALT 27 U/L (9-52) 06/27/18 06:30 Alkaline Phosphatase 91 U/L (38-126) 06/27/18 06:30 Total Creatine Kinase 40 U/L (30-135) 06/23/18 19:30 CK-MB (Mass) 2.14 ng/mL (0.0-3.38) 06/23/18 19:30 Troponin I 0.0480 ng/mL (0.00-0.120) 06/23/18 19:30 NT-Pro-B Natriuret Pep 8860 pg/mL (0-900) H 06/24/18 07:03 Total Protein 5.8 g/dL (6.3-8.3) L 06/27/18 06:30 Albumin 2.9 g/dL (3.5-5.0) L 06/27/18 06:30 Globulin 2.9 gm/dL (2.2-3.9) 06/27/18 06:30 Albumin/Globulin Ratio 1.0 (1.0-2.1) 06/27/18 06:30 Urine Color Straw (YELLOW) 06/23/18 09:37 Urine Clarity Clear (Clear) 06/23/18 09:37 Urine pH 7.0 (5.0-8.0) 06/23/18 09:37 Ur Specific [place] 1.009 (1.003-1.030) 06/23/18 09:37 Urine Protein 2+ mg/dL (NEGATIVE) H 06/23/18 09:37 Urine Glucose (UA) 2+ mg/dL (Normal) H 06/23/18 09:37 Urine Ketones Negative mg/dL (NEGATIVE) 06/23/18 09:37 Urine Blood Negative (NEGATIVE) 06/23/18 09:37 Urine Nitrate Negative (NEGATIVE) 06/23/18 09:37 Urine Bilirubin Negative (NEGATIVE) 06/23/18 09:37 Urine Urobilinogen Normal mg/dL (0.2-1.0) 06/23/18 09:37 Ur Leukocyte Esterase Neg Marcelle/uL (Negative) 06/23/18 09:37 Urine WBC (Auto) 1 /hpf (0-5) 06/23/18 09:37 Urine RBC (Auto) 1 /hpf (0-3) 06/23/18 09:37 Ur Squamous Epith Cells 3 /hpf (0-5) 06/23/18 09:37 Hyaline Casts 3-5 /lpf (0-2) H 06/23/18 09:37 - Hospital Course Hospital Course: Upon Admisison: This is a 78 year old female with PMH of HFrEF, CAD (CABG 2014), HTN, IDDM2, osteoporosis, pneumonia who presents with worsening shortness of breath over the past 2 days. She states that the difficulty breathing was the worst to day, prompting her to come to the ED. Recent admission 06/05/18-06/14/18 for CHF exacerbation and pneumonia with pleural effusions. She reports that she has been taking her home medications. She endorses increased lower extremity swelling over the past 2 days, and some dizziness on walking. Pt denies syncope, fever, chills, palpitations, cough, headache, numbness or tingling, abdominal pain, n/v/d. She continues to have midsternal chest and left rib discomfort due to fall at the end of May. BNP was 9010 on admission. EKG was stable from last admisson. Troponins were not elevated Patient was admitted for HFrEF exacerbation. Hospital Course: Patient was placed on breathing treatments for shortness of breath and diuresed with IV lasix. CXR showed pulmonary venous congestion and small b/l pleural effusions with extensive calcified mediastinal and hilar lymph nodes. Patient was restarted on home medications. Patient's breathing improved throughout hospital course. Repeat CXR showed improved pulmonary venous congestion. Patient was deemed stable for discharge. Upon Discharge: Patient was deemed stable for discharge to home. She was given instructions to follow up with Dr. Rodriguez within 1-2 weeks. She was given prescriptions to continue home medications. Patient understood instructions and agreed. Discharge Exam - Head Exam Head Exam: ATRAUMATIC, NORMAL INSPECTION - Eye Exam Eye Exam: Normal appearance Pupil Exam: NORMAL ACCOMODATION - Respiratory Exam Respiratory Exam: Clear to PA & Lateral, NORMAL BREATHING PATTERN. absent: Decreased Breath Sounds, Wheezes - Cardiovascular Exam Cardiovascular Exam: REGULAR RHYTHM, +S1, +S2. absent: Gallop, Rubs, Systolic Murmur - GI/Abdominal Exam GI & Abdominal Exam: Normal Bowel Sounds, Soft. absent: Distended, Tenderness - Extremities Exam Extremities exam: normal inspection - Back Exam Back exam: NORMAL INSPECTION - Neurological Exam Neurological exam: Alert, CN II-XII Intact, Normal Gait, Oriented x3 - Psychiatric Exam Psychiatric exam: Normal Affect, Normal Mood Discharge Plan - Discharge Medications Prescriptions: Albuterol HFA [Ventolin HFA 90 mcg/actuation (8 g)] 2 puff IH [id number] #1 inhaler Aspirin [Aspirin Chewable] 81 mg PO DAILY #30 chew Budesonide [Pulmicort Flexhaler] 180 mcg IH BID #1 aer.[email or web address] Carvedilol [Coreg] 6.25 mg PO BID #60 tab Digoxin 0.125 mg PO DAILY@1800 #30 tab Furosemide [Lasix] 20 mg PO BID #60 tablet Insulin NPH Hum/Reg Insulin Hm [Novolin 70-30 Flexpen] 100 unit SQ TIDCC #1 insuln.pen Lisinopril [Zestril] 10 mg PO DAILY #30 tab Rosuvastatin Calcium [Crestor] 10 mg PO HS #30 tab Spironolactone [Aldactone] 25 mg PO BID #60 tab - Follow Up Plan Condition: GUARDED Disposition: HOME/ ROUTINE Instructions: Heart Failure (DC), Heart Failure (GEN), Pacemaker (DC), Pacemaker (GEN), Pulmonary Edema (DC), Pulmonary Edema (GEN), Ascites (DC), Ascites (GEN) Additional Instructions: Please follow up with your primary physician, Dr. Rodriguez within 1 to 2 weeks. Please take your medications as prescribed. If symptoms worsen, please return to the emergency department. Take care and be well. Por favor priscilla un seguimiento con pickering mdico de cabecera, el Dr. Rodriguez dentro de 1 a 2 semanas. Por favor, tome yolanda medicamentos segn lo prescrito. Si los sntomas empeoran, por favor regrese al departamento de emergencias. Cudate y sintete peng. Clinical Quality Measures - CQM - Heart Failure Ejection Fraction: Less Than 40 % CARMEL Inhibitor Prescribed: Yes Beta-Emile Prescribed: Carvedilol Angiotensin II Receptor Emile Prescribed: No Contraindication/Reason for not providing: on CARMEL AnticoagulationTherapy for Atrial Fibrillation/Atrialflutter: No Contraindication/Reason for not providing: no indicated Aldosterone Antagonist Prescribed: Yes Hydralazine Nitrate Prescribed: No Contraindication/Reason for not providing: no indicated Implantable Cardioverter Defibrillator Therapy: No Contraindication/Reason for not providing: not indicated Cardiac Resynchronization Therapy Prescribed: No Contraindication/Reason for not providing: not necessary Will be discharged to: Home Follow Up Date (must be within 7 days from discharge): 07/04/18 Follow Up Time: 11:57
[2018-06-27] MEDS: Digoxin 125 mcg (0.125 mg) Tab PO SCH (17:03)
[2018-06-28] MEDS: Albuterol-Ipratrop 3 mg / 0.5 (3 ml) UD INH SCH ×4 (02:55→19:27)
[2018-06-28 07:37] VITALS: RESP 18
[2018-06-28 07:42] LABS: BASO % 0.8 % (0.0-2.0); EOS # 0.1 K/uL (0.0-0.7); EOS % 2.4 % (0.0-4.0); HEMOGLOBIN 11.8 g/dL (11.0-16.0); LYMPH % 18.9 % (20.0-40.0); MEAN CELL VOLUME 89.1 fL (81.0-99.0); MEAN CORPUSCULAR HEMOGLOBIN 29.6 pg (27.0-31.0); MEAN CORPUSCULAR HGB CONC 33.3 g/dL (33.0-37.0); MEAN PLATELET VOLUME 9.4 fL (7.2-11.7); MONO # 0.4 K/uL (0.0-0.8); MONO % 7.7 % (0.0-10.0); NEUT # 3.9 K/uL (1.8-7.0); NEUT % 70.2 % (50.0-75.0); RBC 3.97 Mil/uL (3.80-5.20); RED CELL DISTRIBUTION WIDTH 14.9 % (11.5-14.5); WHITE BLOOD COUNT 5.5 K/uL (4.8-10.8)
[2018-06-28] MEDS: (Novolin R) Insulin Human Regular 100 units/ml vial SC SCH ×3 (08:30→17:03)
[2018-06-28 08:31] LABS: ALB/GLOB RATIO 1.1 (1.0-2.1); ALBUMIN 3.2 g/dL (3.5-5.0); CALCIUM 8.4 mg/dl (8.6-10.4)
[2018-06-28 14:17] VITALS: O2SAT 100
--- NOTE | 2018-06-28 14:38 | CP.PCM.PCO ---
Assessment & Plan - Assessment and Plan (Free Text) Plan: Patient was discharged on 06/28/18. Home oxygen was ordered for patient. Please see discharge summary 06/27/18 for further details.
[2018-06-28 15:39] VITALS: BP 114/61; PULSE 87; TEMP 97.8
[2018-06-28] MEDS: Digoxin 125 mcg (0.125 mg) Tab PO SCH (17:03)
[2018-06-28 17:04] VITALS: PULSE 88
[2018-06-29] MEDS ORDERED: Pantoprazole 40 mg EC Tab PO SCH (10:00)
== END 2018-06-28 20:03 | disposition home or self-care (01) | DRG 194 ==
LOC: C.ER 08:12 → C.9E 11:14 → C.5S 11:42
PROVIDERS: ADMIT Internal Medicine; ATTEND Internal Medicine
PROC: 5A09357 Assistance with Respiratory Ventilation, Less than 24 Consecutive Hours, Continuous Positive Airway Pressure (ICD-10-PCS; principal; 2018-06-23)
DX: I13.0 Hypertensive heart and chronic kidney disease with heart failure and stage 1 through stage 4 chronic kidney disease, or unspecified chronic kidney disease (principal); N18.4 Chronic kidney disease, stage 4 (severe); E11.22 Type 2 diabetes mellitus with diabetic chronic kidney disease; I50.9 Heart failure, unspecified; J44.9 Chronic obstructive pulmonary disease, unspecified; I25.10 Atherosclerotic heart disease of native coronary artery without angina pectoris; E78.5 Hyperlipidemia, unspecified; M81.0 Age-related osteoporosis without current pathological fracture; Z79.4 Long term (current) use of insulin; Z95.1 Presence of aortocoronary bypass graft; F17.210 Nicotine dependence, cigarettes, uncomplicated; Z87.01 Personal history of pneumonia (recurrent); I25.2 Old myocardial infarction